=== PATIENT | male | born 1940 | race Caucasian/White ===

== ENCOUNTER 2018-09-21 09:48 | Outpatient (CLI) | payer MEDICARE, BC ==
--- NOTE | 2018-09-21 14:54 | MRI ---
MRI BRAIN WITHOUT CONTRAST: Date: 09/21/18 Multiplanar, multisequential imaging of brain obtained. INDICATION: Memory loss. FINDINGS: There is ventriculomegaly, which appears disproportionate to the degree of atrophy seen. There are mi ld chronic ischemic white matter changes. There is no evidence of restricted diffusion. No mass or edema seen. IMPRESSION: 1. Ventriculomegaly which appears disproportionate to the degree of atrophy. Consider NPH. 2. Mild chronic ischemic white matter change. POS: CHEN
== END 2018-09-21 09:49 | disposition home or self-care (01) ==
LOC: SCSMRI 09:48
PROVIDERS: ATTEND Family Medicine
DX: R41.3 Other amnesia (principal); G93.89 Other specified disorders of brain; G31.9 Degenerative disease of nervous system, unspecified
CPT/HCPCS: 70551

== ENCOUNTER 2019-07-15 09:41 | Inpatient (IN) | payer MEDICARE, BC ==
[2019-07-15 10:04] LABS: INR-International Normal Ratio 1.1; PTT 29.1 SEC (22.9-36.1); Prothrombin Time 13.7 SEC (12.0-14.7)
[2019-07-15 10:07] LABS: Hemoglobin 16.8 g/dL (14.0-18.0); Mean Corpuscular HGB CONC 34.2 g/dL (32.0-36.0); Mean Corpuscular Hemoglobin 33.3 pg (27.0-31.0); Mean Corpuscular Volume 97.5 fL (78.0-98.0); Mean Platelet Volume 7.5 fL (7.4-10.4); Platelet Count 221 thou/uL (130-400); RBC Distribution Width 12.7 % (11.5-14.5); Red Blood Cell (RBC) Count 5.03 mill/uL (4.70-6.10); White Blood Cell (WBC) Count 27.9 thou/uL (4.8-10.8)
--- NOTE | 2019-07-15 10:08 | CT ---
CT Brain WO Con: 07/15/2019 9:53 AM CLINICAL HISTORY: Stroke. COMPARISON: None. FINDINGS: Hemorrhage: None. Ventricular system: Enlarged. Cerebral parenchyma: Microvascular ischemic disease. Mild parenchymal volume loss. Midline shift: None. Mass: No mass effect. Calvarium: Normal. Visualized Paranasal sinuses: Scattered mild inflammatory mucosal thickening. IMPRESSION: No acute intracranial hemorrhage or mass effect. Telephone call of findings placed at 1003 hours.
[2019-07-15 10:11] LABS: ALT (SGPT) 55 U/L (8-55); AST (SGOT) 207 U/L (5-34); Albumin 4.5 g/dL (3.4-4.8); Alkaline Phosphatase 102 U/L (40-110); Anion Gap 13 mmol/L (10-20); BUN (Urea Nitrogen) 23 mg/dL (8.4-25.7); Bilirubin, Total 0.9 mg/dL (0.2-1.2); Calc. Creatinine Clearance 0 mL/min (70-130); Calcium 9.6 mg/dL (7.8-10.44); Carbon Dioxide 27 mmol/L (23-31); Chloride 106 mmol/L (98-107); Estimated GFR-MDRD 53; Glucose 127 mg/dL (83-110); Potassium 4.1 mmol/L (3.5-5.1); Protein, Total 7.5 g/dL (5.8-8.1); Sodium 142 mmol/L (136-145)
--- NOTE | 2019-07-15 10:13 | CT ---
CT Cervical Spine WO Con Indication: Pain/Injury COMPARISON: None FINDINGS: Acute fracture/subluxation: None Spinal alignment: No acute malalignment. Vertebral body heights: Relatively well preserved. Cervical spine degenerative change: Moderate multilevel degenerative change of the cervical spine. Incidental note of paranasal sinus mucosal thickening. IMPRESSION: No acute osseous abnormality.
[2019-07-15 10:20] LABS: CKMB 167.2 ng/mL (0-6.6)
[2019-07-15 10:22] LABS: Band 1 % (5-11); Lymphocytes 4 % (21-51); MDiff Complete? YES; Monocytes 4 % (0-10); Neutrophil 86 % (42-75); Platelet Morphology Comment Appears Decreased; Reactive Lymphocytes 5 % (0-10)
--- NOTE | 2019-07-15 10:30 | CT ---
CT Thoracic Spine WO Con History: Trauma Comparison: None. Findings: The visualized posterior ribs are intact. No acute fracture of the thoracic spine. Multilev el degenerative disc space disease. There is a degenerative 3 mm T1 over T2 anterolisthesis due to facet arthropathy. Posterior elements are intact. Spinous processes are without fracture. Atelectatic changes both lung bases. Calcified granuloma right lower lobe. Moderate atherosclerotic plaque of the aorta. Mild pancreatic atrophy. Calcified granulous of the spleen. Posterior disc osteophyte complex at T9/T10 narrows the spinal canal. Impression: No acute fracture of the thoracic spine.
--- NOTE | 2019-07-15 10:48 | RAD ---
XR Chest 1 View Portable History: Altered mental status Comparison: Altered mental status Findings: Lungs are mildly hypoinflated. No pneumothorax. No effusion. Some scarring lung bases. No a cute osseous normality. Impression: No acute intrathoracic abnormality.
--- NOTE | 2019-07-15 10:49 | CT ---
CTA OF THE HEAD WITH AND WITHOUT IV CONTRAST AND 3D REFORMATTED IMAGING CTA OF THE NECK WITH IV CONTRAST AND 3D REFORMATTED IMAGING: DATE: 07/15/2019 9:53 AM. HISTORY: Stroke. COMPARISON: None. FINDINGS: RIGHT: CCA:No significant stenosis. ICA:Scattered atherosclerotic vascular calcification, without high-grade stenosis. MCA:Subtle diminished contrast volume involving the anterior right sylvian branch is present, difficu lt to reliably characterize due to the small nature and peripheral location of the vessel. CONNOR:No significant stenosis. BILLET ASSEMBLER:No significant stenosis. LEFT: CCA:Scattered vascular calcification without significant stenosis. ICA:Scattered vascular desiccation, without significant stenosis. MCA:No significant stenosis. CONNOR:No significant stenosis. BILLET ASSEMBLER:No significant stenosis. Vertebrobasilar System: Left Vertebral:Desiccation at the origin, without significant stenosis otherwise demonstrated. Left v ertebral artery is dominant. Right Vertebral:Calcification at the origin, without significant stenosis of the nondominant right ve rtebral artery Basilar:No significant stenosis. Perfusion imaging reveals no significant completed infarct or penumbra. IMPRESSION: Mild diminished contrast within an anterior right sylvian branch, although no central large vessel oc clusion. Telephone call of findings placed at the time of dictation, 1045 hours. CODE CR Transcribed Date/Time: 07/15/2019 11:04 AM
[2019-07-15 11:06] LABS: CK (CPK) 15120 U/L (30-200)
[2019-07-15] MEDS ORDERED: Aspirin Chewable 81 MG TAB ONE (11:13)
[2019-07-15 11:56] LABS: Bilirubin Negative (Negative); Clarity Clear (Clear); Glucose, Urine (Dipstick) Normal (Negative); Leukocyte Negative Leu/uL (Negative); Nitrite Negative (Negative); Protein, Urine (Dipstick) 70 mg/dL (Neg-Trace); Squamous Epithelial 0-3 HPF (0-3); Urobilinogen Normal mg/dL (Less than 2)
[2019-07-15] MEDS ORDERED: ISOVUE-370 76%-LOCM 1 ML ONE (12:00)
[2019-07-15 12:10] LABS: Blood, Urine 3+ (Negative)
[2019-07-15 12:11] LABS: Bacteria/HPF 1+ HPF (None Seen); RBC/HPF 0-3 HPF (0-3)
[2019-07-15 12:12] LABS: Epithelial Cast 0-3 LPF (None Seen)
[2019-07-15 13:05] LABS: Troponin I 0.184 ng/mL (< 0.028)
[2019-07-15] MEDS ORDERED: Bisacodyl 10 MG SUPP PR PRN (13:11)
[2019-07-15] MEDS ORDERED: Senokot S 8.6-50 MG TAB PO PRN (13:11)
[2019-07-15] MEDS ORDERED: Ondansetron PF 4 MG/2 ML Vial IVP PRN (13:11)
[2019-07-15] MEDS ORDERED: Guaifenesin DM 100-10/5 ML UDCUP PO PRN (13:11)
[2019-07-15] MEDS ORDERED: Dextrose 5% in Water 1,000 ML IV SCH (13:30)
[2019-07-15] MEDS ORDERED: Sodium Chloride 0.9% 1,000 ML IV SCH (14:00)
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
[2019-07-15 14:49] VITALS: BMI 23.5
[2019-07-15] MEDS: Sodium Chloride 0.9% 1,000 ML IV SCH ×3 (15:56→22:18)
[2019-07-15 16:00] LABS: Troponin I 0.243 ng/mL (< 0.028)
[2019-07-15] MEDS: cefTRIAXone\\ROCEPHIN 1 GM in Sodium Chloride 0.9% 100 ML IVPB SCH (16:20)
--- NOTE | 2019-07-15 18:20 | CON ---
DATE OF CONSULTATION: 07/15/2019 SERVICE: Nephrology. REQUESTING PHYSICIAN: Dr. Christine Eugene. REASON FOR CONSULTATION: Markedly elevated CK and ANTOINE. HISTORY OF PRESENT ILLNESS: A 78-year-old male with known history of dementia, hypertension, BPH, and others, who was admitted to the hospital after he was found down and confused. Time of fall is unknown, but it seems the patient has been down for several hours. There was some concern about acute CVA as the patient initially was thought to have mild facial droop with left-sided drift. The patient also was found to have mild elevation in creatinine relative to baseline as well as markedly elevated CPK. Further evaluation with CT scan of the brain was unremarkable, other than mild parenchymal volume loss and microvascular ischemic disease. The patient also was evaluated with CT angio head and neck with contrast, which was negative for hemodynamically significant stenosis, though he was found to have mild diminished contrast within an anterior right sylvian branch, though no central large vessel occlusion was noted. He is therefore admitted for further evaluation and treatment. The patient initially on presentation was aphasic with nonsensical speech. Speech content, however, has been evolving and changing with time. During my evaluation, the patient is oriented to person, but still has some inappropriate answers, which nursing staff reported that is worse from earlier on since arrival to the stroke unit. The patient was found to have a rash on the anterior aspect of the abdomen, which was concerning for possible shingles, but there was no history of cough, shortness of breath, fever, or dysuria. When found this morning, however, there was some emesis . Note that, the above history was obtained from review of medical record and talking with the patient's son at the bedside. The patient was unable to provide any significant history. PAST MEDICAL HISTORY: 1. Coronary artery disease. 2. Prior history of TIA. 3. Dyslipidemia. 4. BPH. 5. Dementia. 6. Hypertension. 7. Gastroesophageal reflux disease. 8. Depression. PAST SURGICAL HISTORY: Esophageal surgery. FAMILY HISTORY: This could not be obtained due to the patient's condition. SOCIAL HISTORY: The patient lives with spouse. There is no history of alcohol or drug abuse. Also, no history of smoking. ALLERGIES: PENICILLIN. CURRENT HOME MEDICATIONS: 1. Acetaminophen 650 mg p.o. b.i.d. 2. Amlodipine 10 mg p.o. daily. 3. Aricept 5 mg p.o. daily. 4. Enalapril 20 mg p.o. daily. 5. Fluorometholone one drop to each eye 3 times daily. 6. Gatifloxacin eye drop one drop to left eye t.i.d. 7. Lamotrigine 25 mg p.o. daily. 8. Ofloxacin eye drop one drop to left eye q.i.d. 9. Omeprazole 40 mg p.o. daily. 10. Pravastatin 20 mg p.o. daily at bedtime. 11. Zoloft 50 mg p.o. daily. REVIEW OF SYSTEMS: Could not be performed due to the patient's condition. PHYSICAL EXAMINATION: VITAL SIGNS: Temperature 98.5, pulse 81, respiratory rate 18, SpO2 of 92% on room air, blood pressure is 161/93. GENERAL: Confused, elderly male, in no obvious distress. Afebrile. Anicteric. Acyanotic. HEENT: Normocephalic and atraumatic. Two small wounds with scab on the left ventral aspect of forehead noted. No erythema or facial droop appreciated. Face is symmetrical. Oral mucosa is dry. NECK: Supple. Nontender with good range of motion. No JVD or lymphadenopathy or masses appreciated. CARDIOVASCULAR: Regular rhythm and rate with normal heart sounds one and two. RESPIRATORY: Fair air entry bilaterally with few transmitted breath sounds. No obvious crackle or rhonchi or use of accessory muscles was appreciated. GI: Full, soft with moderate lower abdominal tenderness. Bowel sound is hypoactive. EXTREMITIES: Grossly normal looking with no obvious bruise, edema, or erythema. SKIN: Few scattered erythematous papules and a small wound with scab on the anterior aspect of upper abdomen bilaterally noted. No obvious vesicular lesion was appreciated. No rash noted on any other part of the body. RANGE OPERATOR: Conscious and awake. Face is symmetrical. Cranial nerves 2 through 12 are grossly intact . The patient is oriented to person alone. He is disoriented and confused. Providing inappropriate answers most of the time, query confabulation. No obvious involuntary movement appreciated. The patient moves all extremities with symmetric power. No upper or lower limb drift appreciated. PSYCHIATRIC: The patient is anxious with some agitation. DIAGNOSTIC DATA: CBC showed WBC count of 27, hemoglobin of 16.8, MCV of 97.5, platelet of 221. Neutrophil percent is 86. Coagulation panel showed PT 13.7, INR 1.1, PTT 29.1. CMP showed sodium 142, potassium 4.1, chloride 106, CO2 of 27, BUN 23, creatinine 1.31, glucose 127, calcium 9.6, total bilirubin 0.9, AST 207, ALT 55, alkaline phosphatase 102, total protein 7.5, albumin 4.5, globulin 3.0. Cardiac markers showed CK 15,120, CK-MB 167.2. Initial troponin of 0.168, last troponin however is 0.243. Urinalysis showed yellow clear urine with pH of 6.0, specific gravity of 1.045, urine protein of 70 mg/dL, negative ketones, nitrites, bilirubin, and leukocyte esterase. Microscopy showed 0 to 3 rbc and 4 to 6 wbc with 3+ is blood on dipstick. IMAGING STUDIES: Chest x-ray showed mildly hypoinflated lungs with no pneumothorax, effusion, or acute intrathoracic abnormality. CT scan of the brain without contrast showed no acute hemorrhage or mass effect. CT angio head and neck with and without contrast showed mild diminished contrast within an anterior right sylvian branch, although no central large vessel occlusion was noted. Atherosclerosis of bilateral head and neck vessels were noted; however, there was no hemodynamically significant stenosis noted. CT scan of the cervical spine showed moderate multilevel degenerative changes of the cervical spine, but no acute osseous abnormality. CT scan of the thoracic spine showed multilevel degenerative disk space disease as well as moderate atherosclerotic plaque of the aorta with no acute fracture of the thoracic spine. ASSESSMENT: 1. Acute renal failure: This is due to pigment nephropathy related to rhabdomyolysis. The patient was found down and nobody know how long he has been down. CPK is 15,000. Baseline creatinine is about 1 and currently is 1.3. The patient also received contrast study, increasing risk of contrast-induced nephropathy. 2. Rhabdomyolysis. 3. Acute mental status change: Due to acute metabolic encephalopathy superimposed on baseline dementia. 4. Acute metabolic encephalopathy: Etiology is unclear. CVA remains a concern. Occult abdominal pathology also is a concern given leukemoid reaction. The patient also had abdominal tenderness. 5. Acute metabolic encephalopathy. 6. Leukocytosis. 7. Abdominal tenderness of unclear etiology. 8. Baseline dementia. 9. Hypertension. 10. Volume depletion. 11. Abnormal liver function test: Most likely due to rhabdomyolysis. 12. Elevated troponin: Most likely due to demand ischemia from lying down in one place. PLAN: 1. Aggressive IV fluid therapy with normal saline at 250 mL/h will be commenced. 2. We will monitor renal function and CPK given rhabdomyolysis and contrast study to rule out contrast-induced nephropathy. 3. We will also get CT scan of the abdomen with oral contrast given abdominal tenderness. 4. Further evaluation and treatment as per primary attending. Many thanks for involving us in the care of this patient. We will follow along with you. Job ID: [id number]
[2019-07-15] MEDS ORDERED: Donepezil HCl 5 MG TAB PO SCH (21:00)
--- NOTE | 2019-07-15 21:27 | CT ---
CT Abdomen Pelvis WO Con HISTORY: Generalized abdominal pain. Leukocytosis. COMPARISON: 09/19/2009 study. FINDINGS: The lung bases show chronic appearing lung changes with interstitial lung changes in both b ases. Some of these changes could possibly be chronic in an subacute in nature. The liver, spleen and pancreas regions are unremarkable. Contrast in the gallbladder from the previou s CT exam. Right and left adrenal glands and right and left kidneys are normal in size. Contrast is also seen wi thin the kidneys and bladder. There is some mild dilatation of both kidneys and ureters probably on the basis of a mildly distended bladder. There is what appear to be postop changes of the prostate. T here is no significant periaortic or mesenteric adenopathy. No obstruction. Sigmoid diverticulosis is noted. IMPRESSION: 1. Colonic diverticulosis most pronounced in the sigmoid and descending colon region. 2. Interstitial fibrotic lung change. 3. No acute findings of abdomen or pelvis.
[2019-07-15] MEDS ORDERED: Lorazepam 2 MG/ML VIAL SLOW IVP SCH (22:15)
[2019-07-16] MEDS: Sodium Chloride 0.9% 1,000 ML IV SCH (04:33)
[2019-07-16 06:34] LABS: #Lymphocytes 1.8 thou/uL (1.20-3.40); #Monocytes 1.3 thou/uL (0.11-0.59); #Neutrophils 20.9 thou/uL (1.40-6.50); %Basophils 0.2 % (0.0-1.0); %Eosinophils 0.1 % (0.0-10.0); %Lymphocytes 7.4 % (21.0-51.0); %Monocytes 5.2 % (0.0-10.0); %Neutrophils 87.1 % (42.0-75.0); Hemoglobin 15.8 g/dL (14.0-18.0); Mean Corpuscular HGB CONC 32.8 g/dL (32.0-36.0); Mean Corpuscular Hemoglobin 32.3 pg (27.0-31.0); Mean Corpuscular Volume 98.3 fL (78.0-98.0); Mean Platelet Volume 7.8 fL (7.4-10.4); Platelet Count 210 thou/uL (130-400); Red Blood Cell (RBC) Count 4.91 mill/uL (4.70-6.10)
[2019-07-16 06:51] LABS: Anion Gap 17 mmol/L (10-20); BUN (Urea Nitrogen) 17 mg/dL (8.4-25.7); Calc. Creatinine Clearance 56 mL/min (70-130); Carbon Dioxide 25 mmol/L (23-31); Chloride 108 mmol/L (98-107); Estimated GFR-MDRD 55; Potassium 3.6 mmol/L (3.5-5.1); Sodium 146 mmol/L (136-145)
[2019-07-16 06:52] LABS: Calcium 9.1 mg/dL (7.8-10.44); Cholesterol 182 mg/dl (< 200 Desired); Glucose 106 mg/dL (83-110); HDL Cholesterol 60 mg/dL (>60 Neg Risk); LDL Cholesterol, Calculated 105 mg/dL; Triglycerides 86 mg/dL (Less than 150)
[2019-07-16 07:00] LABS: Syphilis Antibody Nonreactive (Nonreactive); Syphilis Antibody Index 0.07 S/CO (<1.00 Non-Reactive)
[2019-07-16 07:17] LABS: CK (CPK) 18707 U/L (30-200)
[2019-07-16] MEDS: lamoTRIgine 25 MG TAB PO SCH (08:25)
[2019-07-16] MEDS: Tamsulosin HCl 0.4 MG CAP PO SCH (08:25)
[2019-07-16] MEDS: Aspirin 81 mg Enteric Coated Tablet PO SCH (08:26)
[2019-07-16] MEDS: Famotidine 20 MG TAB PO SCH (08:26)
[2019-07-16] MEDS ORDERED: Enoxaparin Sodium 30 MG/0.3 ML SYRINGE SC SCH (09:00)
[2019-07-16] MEDS ORDERED: FLU VACC TS2019-20(65YR UP)/PF 180 MCG/0.5 ML SYRINGE IM ONE (09:00)
[2019-07-16] MEDS: Lorazepam 2 MG/ML VIAL SLOW IVP PRN ×2 (10:28→18:31)
[2019-07-16] MEDS ORDERED: Amlodipine 5 MG TAB PO SCH (10:45)
--- NOTE | 2019-07-16 11:16 | CON ---
DATE OF TELEMEDICINE CONSULTATION: 07/16/2019 CHIEF COMPLAINT: Altered mental status. HISTORY OF PRESENT ILLNESS: History was mainly obtained from his and son. The patient's stated she was getting ready on Wednesday morning. She heard him mumbling in the bedroom and she could not make out what she was hearing, but she was not very concerned, because he sometimes talks to his dogs and she thought he was talking to the dog and she went in to tell him she was leaving and she found him on the floor with face down and she smell like vomit. She tried to turn him over and she could not. She was not sure how long he was that way. She called 911. Within 7 to 10 minutes, they were there and they brought him here. He has been jabbering on and off and in between he does maintain a conversation today compared to yesterday. He has a very short attention span. The patient's states that he does have history of some memory problems and they do not have formal diagnosis of dementia. PREVIOUS MEDICAL HISTORY: Positive for coronary artery disease may be a silent heart attack, prior history of TIA which he is not so sure whether it was exhaustion after procedure or if it was in fact a TIA, dyslipidemia, benign prostatic hypertrophy, possible dementia, hypertension, gastroesophageal reflux disease, and depression. PAST SURGICAL HISTORY: He had esophageal surgery for stricture 20 years ago. He also had vasectomy reversal and hemorrhoidectomy several years ago. FAMILY HISTORY: The patient's parents lived to be in their 80s. Father from an [place]. Mother also had heart problems. There was some emotional problems of the parents per . The patient's sister in late 40s from lung cancer and another sister at 77, she was mentally retarded. ALLERGIES: HE IS ALLERGIC TO PENICILLIN. REVIEW OF SYSTEMS: Difficult to rely on based on his current mental status. MEDICATIONS: At home, he takes; 1. Tylenol twice daily. 2. Amlodipine. 3. Aricept 5 mg per day. 4. Enalapril. 5. Fluorometholone. 6. Gatifloxacin. 7. Lamotrigine. 8. Ofloxacin. 9. Omeprazole. 10. Pravastatin. 11. Zoloft. LABORATORY DATA: White count 24, hemoglobin 15.8, hematocrit 48.3, and platelet count 210. Coagulations within normal limits. Cholesterol panel is within normal limits. Liver function is normal. Troponin I 0.168, 0.184, 0.243. CPK 15,120 and now 18,707. Sodium 146, potassium 3.6, chloride 108, BUN 17, creatinine 1.27, yesterday creatinine was 1.31, glucose 106. Syphilis is negative, urinalysis is abnormal, and I did not see any lab reports for the prolactin level and I will order the same. PHYSICAL EXAMINATION: GENERAL APPEARANCE: Well-built, well-nourished gentleman, who is sleepy more than confused. VITAL SIGNS: Pulse 101, temperature 97.6, O2 sats 92%, and blood pressure 153/ 83. CHEST: Clear vesicular breathing. CARDIOVASCULAR: S1 and S2 heard. No murmurs. ABDOMEN: Soft. No organomegaly noted. NEUROLOGICAL: Higher intellectual functions. He wakes up, but intermittently tends to fall asleep. He is oriented to time, place, and person. He thinks it is June and the year is 2018. He did not know the date and is oriented to person and place. Cranial nerves; pupils 2 mm, reactive. Normal extraocular movements. No facial asymmetry noted. Tongue midline. No atrophy noted. Normal elevation of palate. Motor bulk normal, tone normal. Strength 5/5 in upper and lower extremities in iliopsoas, hamstrings, quadriceps, ankle dorsiflexion, plantar flexion, deltoid, biceps, triceps, wrist extension and flexion, finger extension and flexion. Cerebellar, normal [id number]. He is unable to perform [id number] due to the complexity of the task. Sensory appears normal. IMPRESSION: The patient is a 78-year-old man, who was found down by his and he was covered in vomit. In the hospital, he was incontinent and he remained confused. He is improving today. His CPKs went up to 18,000. He also has abnormal white count. He is pending MRI at this time. His CT angiogram does not show any major arterial stenosis other than mild diminished contrast within an anterior right sylvian branch, large vessel occlusion, and his serum prolactin level is not available. I will request the same. Based on the high levels of CPKs and rhabdomyolysis, I suspect this could be more than just a fall. He might have had a seizure with generalized tonic-clonic convulsions or just tonic seizure which can sometimes cause elevated CPKs and rhabdomyolysis and to me his current examination does show some delirium, but he was able to follow commands and answer questions appropriately. At this time, differential diagnosis is encephalopathy secondary to metabolic dysfunction versus primary OIL LEASE [employer]ER event such as seizure with postictal state and rhabdomyolysis contributing to the altered mental status. TREATMENT RECOMMENDATIONS: Please complete the MRI of the brain. I will follow up on the scan. I will also request a prolactin level to see if he had elevated prolactin with the event. I will see him again tomorrow. Job ID: [id number] [id number]
[2019-07-16] MEDS: Lactated Ringer's 1,000 ML IV SCH ×3 (11:44→18:55)
[2019-07-16] MEDS ORDERED: Melatonin 3 MG TAB PO PRN (13:38)
--- NOTE | 2019-07-16 14:11 | PRG ---
DATE OF SERVICE: 07/16/2019 SUBJECTIVE: The patient seen at bedside, admitted, found on the floor with acute kidney injury, high CPK level, and altered mental status. The patient still confused as per family. Oriented in person only. Speaks incoherent. Does not follow command, recognizes family members; however, spontaneously moving all his limbs. MRI could not be done due to the patient noncooperative. As per family, the patient has lacking of sleep since being admitted. OBJECTIVE: VITAL SIGNS: Blood pressure 147/84, temperature 98.7, pulse 96, respirations 20, oxygen saturation 96%. GENERAL: The patient with abrasion on the forehead. Conjunctivae are normal. Oral mucosa dry. NECK: Supple. No JVD. No lymphadenopathy. CHEST: Normal vesicular breathing. No rhonchi. No wheezing. HEART: Sound normal. No murmur. No gallop. No rub. ABDOMEN: Soft, benign. No tenderness or visceromegaly. EXTREMITIES: Negative edema of feet. The patient is spontaneously moving all his extremities. LABORATORY DATA: CBC unremarkable except white blood cells 24.0, hemoglobin 15.8, platelet 210. BMP unremarkable except creatinine 1.27. CPK 18,707. Troponin 0.243, 0.184. LDL 105. Prolactin 11.10. IMPRESSION: 1. Acute encephalopathy, looks multifactorial. The patient with baseline dementia, was found on the floor and found to be having more worsening mental status with high CPK levels. MRI could not be done due to the patient's lacking cooperativeness. We will wait for Neurology recommendation. May need MRI with anesthesia. Continue supportive care. Continue aspirin. The patient has normal prolactin level; however, possibility of as the patient found on the floor. No secondary cause of sepsis, possible dehydration. Continue to monitor clinically. Mental status mildly improving with family concerned about the patient's insomnia. We will add melatonin 3 mg at bedtime p.r.n. for sleep. 2. Acute kidney injury, most likely related to dehydration. Continue IV fluids as per Dr. Easley. Follow up BMP in the morning. Currently improving. 3. Acute rhabdomyolysis. Continue aggressive fluid resuscitation as per Dr. Easley and follow up CPK level in the morning. 4. Borderline increased troponin, possible demand supply mismatch. Continue telemonitoring. Continue to monitor clinically. 5. Hypertension. Continue monitoring blood pressure. Continue blood pressure medication. Continue hydralazine as needed for hypertensive urgency. 6. Leukocytosis, most likely reactive. 7. DNR/DNI. 8. History of dementia. Continue supportive care. 9. Deep venous thrombosis and gastrointestinal prophylaxis. PLAN: Discussed with the son, , and nursing staff in detail. Job ID: [id number]
--- NOTE | 2019-07-16 14:41 | PRG ---
DATE OF SERVICE: 07/16/2019 SERVICE: Nephrology. SUBJECTIVE: A 78-year-old male with known history of dementia admitted after he was found face down in his house confused. Nephrology is following patient for acute renal failure and rhabdomyolysis. The patient is still confused with delusion. Oral intake remained poor. There is no history of fever, nausea, vomiting, or frequent loose stool. OBJECTIVE: VITAL SIGNS: Temperature 97.6, pulse 101, respiratory rate 22, SpO2 92 on room air, blood pressure 153/83. GENERAL: Elderly male, in no obvious distress. Afebrile. Anicteric. Acyanotic. The patient is confused and jittery. HEENT: Normocephalic, atraumatic. Oral mucosa is dry. CARDIOVASCULAR: Regular rhythm and rate with normal heart sounds one and two. RESPIRATORY: Fair air entry bilaterally with few transmitted breath sounds. No obvious rhonchi or use of accessory muscles appreciated. GI: Flat, soft, nontender, nondistended with normal bowel sounds. EXTREMITIES: Grossly normal looking, atraumatic with no obvious bruise, edema, or erythema. SPOOLER RUBBER STRAND: Conscious and alert. Face is symmetrical. Cranial nerves 2 through 12 are grossly intact. The patient is verbalizing some nonsense speech. He is jittery and anxious. DIAGNOSTIC DATA: CBC today showed WBC count of 24, hemoglobin of 15.8, platelet of 210. CMP today showed sodium 146, potassium 3.6, chloride 108, CO2 25, BUN 17, creatinine 1.27, glucose 106, calcium 9.1. CK is 18,707, up from 15,120 on admission. ASSESSMENT: 1. Acute kidney injury, on chronic kidney disease stage 3: Most likely due to hemodynamic factors related to volume depletion. Creatinine is trending downwards towards baseline. 2. Rhabdomyolysis: The patient was found down and he may have been there for several hours. [place] is [place] today [place] [address] to [address]. Of note, IV fluid was cut back overnight. 3. Acute mental status change: Due to acute metabolic encephalopathy and old cerebrovascular accident superimposed on baseline dementia. 4. Volume depletion. 5. Dementia. 6. Hypernatremia: Mild due to free water deficit. PLAN: 1. We will increase IV fluid to 300 mL/h. 2. We will substitute normal saline with lactated Ringer's. 3. We will also start the patient on low-dose diuretic to avoid fluid overload. 4. [place] free water intake advised. 5. Other treatment as per primary attending and Neurology. We will follow along with you. We will repeat CPK and renal function in the morning. Job ID: [id number]
[2019-07-16] MEDS: cefTRIAXone\\ROCEPHIN 1 GM in Sodium Chloride 0.9% 100 ML IVPB SCH (15:35)
[2019-07-16] MEDS ORDERED: Furosemide 20 MG TAB PO SCH (16:00)
[2019-07-16] MEDS: Fluorometholone 0.1% Ophth Soln 5 ml Bottle L EYE SCH ×2 (16:02→21:14)
[2019-07-16] MEDS ORDERED: Ziprasidone 20 MG VIAL IM SCH (18:45)
[2019-07-16] MEDS ORDERED: Sterile Water 10 ML VIAL FS SCH (18:45)
[2019-07-16] MEDS: Ofloxacin 0.3% Ophth Soln L EYE SCH (21:13)
[2019-07-16] MEDS: GATIFLOXACIN 0.5% L EYE SCH (21:13)
[2019-07-17] MEDS: Lactated Ringer's 1,000 ML IV SCH ×6 (01:09→20:30)
[2019-07-17] MEDS ORDERED: Ziprasidone 20 MG VIAL IM SCH (02:15)
[2019-07-17] MEDS ORDERED: Sterile Water 10 ML VIAL FS SCH (02:15)
[2019-07-17] MEDS ORDERED: Amlodipine 10 MG TAB PO SCH (09:00)
[2019-07-17] MEDS ORDERED: Amlodipine 5 MG TAB PO SCH ×2 (09:00→15:15)
[2019-07-17] MEDS ORDERED: lamoTRIgine 25 MG TAB PO SCH (09:00)
[2019-07-17] MEDS: Aspirin 81 mg Enteric Coated Tablet PO SCH (09:31)
[2019-07-17] MEDS: Famotidine 20 MG TAB PO SCH (09:33)
[2019-07-17] MEDS: Lisinopril 20 MG TAB PO SCH (09:34)
[2019-07-17] MEDS: Tamsulosin HCl 0.4 MG CAP PO SCH (09:34)
[2019-07-17] MEDS: lamoTRIgine 25 MG TAB PO SCH (09:34)
[2019-07-17] MEDS: Fluorometholone 0.1% Ophth Soln 5 ml Bottle L EYE SCH ×3 (09:35→20:29)
[2019-07-17] MEDS: Furosemide 20 MG TAB PO SCH (09:35)
[2019-07-17] MEDS: GATIFLOXACIN 0.5% L EYE SCH ×3 (09:35→20:29)
[2019-07-17] MEDS: Ofloxacin 0.3% Ophth Soln L EYE SCH ×4 (09:35→20:29)
[2019-07-17 10:37] LABS: Phosphorus 2.9 mg/dL (2.3-4.7)
[2019-07-17 10:53] LABS: Band 1 % (5-11); Eosinophils 1 % (0-10); Hemoglobin 15.5 g/dL (14.0-18.0); Lymphocytes 3 % (21-51); MDiff Complete? YES; Mean Corpuscular HGB CONC 31.8 g/dL (32.0-36.0); Mean Corpuscular Hemoglobin 31.7 pg (27.0-31.0); Mean Corpuscular Volume 99.6 fL (78.0-98.0); Mean Platelet Volume 7.9 fL (7.4-10.4); Monocytes 9 % (0-10); Neutrophil 86 % (42-75); Platelet Count 207 thou/uL (130-400); RBC Distribution Width 12.8 % (11.5-14.5); RBC Morphology Normal; Red Blood Cell (RBC) Count 4.89 mill/uL (4.70-6.10); White Blood Cell (WBC) Count 22.3 thou/uL (4.8-10.8)
[2019-07-17 12:39] LABS: Albumin 3.9 g/dL (3.4-4.8); Anion Gap 19 mmol/L (10-20); BUN (Urea Nitrogen) 21 mg/dL (8.4-25.7); Calc. Creatinine Clearance 60 mL/min (70-130); Calcium 9.1 mg/dL (7.8-10.44); Carbon Dioxide 21 mmol/L (23-31); Chloride 104 mmol/L (98-107); Estimated GFR-MDRD 60; Glucose 96 mg/dL (83-110); Potassium 3.6 mmol/L (3.5-5.1); Sodium 139 mmol/L (136-145)
--- NOTE | 2019-07-17 15:28 | PRG ---
DATE OF SERVICE: 07/17/2019 SERVICE: Nephrology. SUBJECTIVE: A 78-year-old male with known history of dementia admitted after he was found down at home. The patient also reportedly had emesis and forehead bruises. Nephrology is following the patient for ANTOINE and rhabdomyolysis. The patient is still confused and agitated with restlessness. He is currently restrained. OBJECTIVE: VITAL SIGNS: Temperature 97.8, pulse 108, respiratory rate 20, SpO2 of 93% on room air, blood pressure is 173/91. GENERAL: Elderly male, anxious and restless. The patient is still confused. HEENT: Forehead mild bruise with dry blood. Oral mucosa is dry. CARDIOVASCULAR: Regular rhythm and rate, but tachycardic. RESPIRATORY: Good air entry bilaterally with no obvious crackle or rhonchi or use of accessory muscles. GI: Full, soft, nontender, nondistended with normal bowel sounds. EXTREMITIES: Grossly normal looking atraumatic with no edema or erythema. Four-point restraint is in place. HUMAN RESOURCES HR GENERALIST: Conscious and alert. Confused, anxious, and agitated. Four-point restraint is in place. The patient moves all extremities. DIAGNOSTIC DATA: Renal function panel today showed sodium 139, potassium 3.6, chloride 104, CO2 of 21, BUN 21, creatinine 1.18, glucose 96, calcium 9.1, phosphorus 3.0, albumin 3.9. CK is 9062, down from 18,707 yesterday. CBC showed WBC count of 22.3, hemoglobin of 15.5, MCV of 99.6, platelet of 207. Echocardiogram showed depressed systolic function with EF of 20% to 25% as well as mild mitral regurgitation. ASSESSMENT: 1. Acute kidney injury: Due to hemodynamic factors related to volume depletion. Creatinine is trending down towards baseline with IV fluids. 2. Rhabdomyolysis: Either due to lying down in one place or seizure disorder. The patient with dementia is at increased risk of seizure. CK level is trending down with IV fluids. 3. Cardiomyopathy with EF of 20% to 25%. We will monitor closely to avoid fluid overload. 4. Acute mental status change: Due to CVA or metabolic encephalopathy superimposed on basal dementia. PLAN: 1. Continue IV fluid at current rate. Hopefully, tomorrow we will wean off IV fluid therapy. 2. We will increase the amlodipine to 10 mg to get better BP control. The patient also was started on Coreg 12.5 b.i.d. We can increase that to 25 b.i.d. if tachycardia persist. 3. We will give a dose of potassium chloride continuation of diuretic therapy with Lasix. Other treatment as per primary attending and neurologist. Job ID: [id number]
[2019-07-17] MEDS: cefTRIAXone\\ROCEPHIN 1 GM in Sodium Chloride 0.9% 100 ML IVPB SCH (15:39)
--- NOTE | 2019-07-17 17:42 | CON ---
DATE OF CONSULTATION: REASON FOR CONSULTATION: Recent fall, cardiomyopathy, nonsustained VT. HISTORY OF PRESENT ILLNESS: Mr. Bedolla is an unfortunate 78-year-old gentleman, who has not been seen and evaluated by Cardiology in the past. He recently fell and was found down. He does have underlying dementia. According to his family, he had pleasant dementia. He has also had acute metabolic encephalopathy and questionable stroke in addition to rhabdomyolysis. From a CV standpoint, the family states he has not complained of chest pain, pressure, shortness of breath, or other associated symptoms. He was found down on the floor for an unknown duration. PAST MEDICAL HISTORY: Previous DC, TIA, hyperlipidemia, BPH, dementia, vasectomy, hypertension, acid reflux, and depression. MEDICATIONS: Include: 1. Omeprazole. 2. Enalapril. 3. Norvasc. 4. Sertraline. 5. Pravastatin. 6. Aricept. ALLERGIES: PENICILLIN. SOCIAL HISTORY: No current tobacco or alcohol use. REVIEW OF SYSTEMS: Unobtainable. PHYSICAL EXAMINATION: GENERAL: Metabolic encephalopathy present. The patient awakens to voice, but not following commands. VITAL SIGNS: Blood pressure 136/85, pulse 116, respirations 20, and temperature 99.6. NEUROLOGIC: The patient is alert and oriented x3 with no focal neurologic deficits. HEENT: Sclerae without icterus. Mouth has moist mucous membranes with normal pallor. NECK: No JVD. Carotid upstroke brisk. No bruits bilaterally. LUNGS: Clear to auscultation with unlabored respirations. BACK: No scoliosis or kyphosis. CARDIAC: Regular rate and rhythm with normal S1 and S2. No S3 or S4 noted. No significant rubs, murmurs, thrills, or gallops noted throughout the precordium. PMI is not displaced. There is no parasternal heave. ABDOMEN: Soft, nontender, nondistended. No peritoneal signs present. No hepatosplenomegaly. No abnormal striae. EXTREMITIES: 2+ femoral and 2+ dorsalis pedis pulses. No cyanosis, clubbing, or edema. SKIN: No gross abnormalities. PERTINENT LABORATORY DATA: Hemoglobin 15.5, hematocrit 48.7, and creatinine 1.18. Telemetry monitoring shows nonsustained VT. IMPRESSION: 1. Cardiomyopathy with LVEF 20% to 25%. 2. Nonsustained ventricular tachycardia. 3. Recent fall. 4. Dementia. 5. Metabolic encephalopathy. RECOMMENDATIONS: There is conceivable that Mr. Bedolla's initial insult was VT causing a possible syncopal episode. Etiology to his metabolic encephalopathy is currently unknown. His workup is ensued by the primary team. From a CV standpoint, he does have a cardiomyopathy with recent nonsustained VT. I discussed several options with family including medical therapy versus a stress study versus proceeding with a more aggressive approach including coronary angiography. I have discussed risks and benefits of both. It was decided based on his underlying dementia to proceed with a more conservative approach. We will add Coreg to his current regime. His initial CK was 18,000 with troponin 0.2 and likely related to rhabdomyolysis. I also discussed LifeVest with family. I do not feel he will be compliant and would agree. Otherwise from my standpoint, I have no further recommendations. Job ID: [id number]
[2019-07-17] MEDS: Carvedilol 6.25 MG TAB PO SCH (20:20)
--- NOTE | 2019-07-17 20:54 | PRG ---
DATE OF TELEMEDICINE SERVICE: 07/17/2019 CHIEF COMPLAINT: Altered mental status. INTERVAL HISTORY: The patient still remains confused. Son was by his bedside. He was just sedated for his MRI. We are hoping he can complete his MRI. He is still encephalopathic. As of now, he has ventricular tachycardia causing syncopal episode and cause of metabolic encephalopathy is unknown at this time. He does have a cardiomyopathy with a low EF and he has been seen by Cardiology as he needs to complete his MRI scan, so we can understand there is any other abnormalities and the patient is a little more cooperative. Please consider obtaining CSF studies. I am hoping as the rhabdomyolysis is clear, he will do better. I will request Dr. Singleton to follow up with this patient. Job ID: [id number] MTDD
[2019-07-18] MEDS: Acetaminophen 325 MG TAB PO PRN ×2 (02:32→20:45)
[2019-07-18] MEDS: Lorazepam 2 MG/ML VIAL SLOW IVP PRN (02:32)
[2019-07-18 06:13] LABS: #Eosinphils 0.1 thou/uL (0.0-0.7); #Lymphocytes 1.2 thou/uL (1.20-3.40); #Monocytes 0.8 thou/uL (0.11-0.59); #Neutrophils 15.5 thou/uL (1.40-6.50); %Basophils 0.2 % (0.0-1.0); %Eosinophils 0.5 % (0.0-10.0); %Lymphocytes 6.8 % (21.0-51.0); %Monocytes 4.5 % (0.0-10.0); Hemoglobin 13.9 g/dL (14.0-18.0); Mean Corpuscular HGB CONC 32.6 g/dL (32.0-36.0); Mean Corpuscular Hemoglobin 32.2 pg (27.0-31.0); Mean Corpuscular Volume 98.8 fL (78.0-98.0); Mean Platelet Volume 7.8 fL (7.4-10.4); Platelet Count 184 thou/uL (130-400); RBC Distribution Width 12.6 % (11.5-14.5); Red Blood Cell (RBC) Count 4.32 mill/uL (4.70-6.10); White Blood Cell (WBC) Count 17.6 thou/uL (4.8-10.8)
[2019-07-18 06:42] LABS: Albumin 3.4 g/dL (3.4-4.8); Anion Gap 17 mmol/L (10-20); BUN (Urea Nitrogen) 26 mg/dL (8.4-25.7); BUN/Creatinine Ratio 23.64; CK (CPK) 3434 U/L (30-200); Calc. Creatinine Clearance 64 mL/min (70-130); Calcium 8.5 mg/dL (7.8-10.44); Carbon Dioxide 22 mmol/L (23-31); Chloride 109 mmol/L (98-107); Estimated GFR-MDRD 65; Glucose 116 mg/dL (83-110); Phosphorus 3.3 mg/dL (2.3-4.7); Potassium 3.5 mmol/L (3.5-5.1); Sodium 144 mmol/L (136-145)
[2019-07-18] MEDS: Fluorometholone 0.1% Ophth Soln 5 ml Bottle L EYE SCH ×3 (08:38→20:45)
[2019-07-18] MEDS: Carvedilol 6.25 MG TAB PO SCH (08:41)
--- NOTE | 2019-07-18 08:41 | RAD ---
PORTABLE CHEST: HISTORY: The patient is coughing up bright red blood. FINDINGS: Heart size appears enlarged. Since the prior 07/15/2019 study there has been development of pulmonary vascular engorgement with increased perihilar lung markings, slightly asymmetric involving the right lung but still appears to represent pulmonary edema type change. IMPRESSION: Cardiomegaly with predominantly perihilar alveolar infiltrates, most suggestive of pulmonary edema ch get. POS: DEBORAH
[2019-07-18] MEDS: Aspirin 81 mg Enteric Coated Tablet PO SCH (08:42)
[2019-07-18] MEDS: lamoTRIgine 25 MG TAB PO SCH (08:43)
[2019-07-18] MEDS: Furosemide 20 MG TAB PO SCH (08:43)
[2019-07-18] MEDS: Famotidine 20 MG TAB PO SCH (08:43)
[2019-07-18] MEDS: Lisinopril 20 MG TAB PO SCH (08:43)
[2019-07-18] MEDS: Tamsulosin HCl 0.4 MG CAP PO SCH (08:44)
[2019-07-18] MEDS: GATIFLOXACIN 0.5% L EYE SCH ×3 (08:47→20:46)
[2019-07-18] MEDS: Ofloxacin 0.3% Ophth Soln L EYE SCH ×4 (08:47→20:45)
[2019-07-18] MEDS ORDERED: Amlodipine 5 MG TAB PO SCH (09:00)
[2019-07-18] MEDS ORDERED: Carvedilol 6.25 MG TAB PO SCH (10:00)
[2019-07-18] MEDS: Lactated Ringer's 1,000 ML IV SCH (10:24)
--- NOTE | 2019-07-18 10:28 | PDOC.HOSPP ---
- Subjective Encounter Date: 07/17/19 Encounter Time: 09:45 Subjective: pt up in bed wants his restraints off he answers all questions well. - Objective Vital Signs & Weight: Vital Signs (12 hours) Temp Pulse Resp BP BP BP Pulse Ox 07/18/19 09:58 160/90 H 07/18/19 08:43 160/90 H 07/18/19 08:42 105 H 160/92 H 07/18/19 08:41 160/92 H 07/18/19 08:00 98.1 F 108 H 28 H 160/92 H 93 L 07/18/19 07:30 94 L 07/18/19 04:50 96 07/18/19 04:04 91 L 07/18/19 03:18 98.4 F 114 H 24 H 180/92 H 85 L 07/18/19 00:00 99.9 F H 104 H 22 H 165/83 H 94 L Weight Admit Weight 178 lb Weight 178 lb I&O: 07/17/19 07/18/19 07/19/19 06:59 06:59 06:59 Intake Total 3813 900 Balance 3813 900 Result Diagrams: 07/18/19 05:49 07/18/19 05:49 Hospitalist ROS - Review of Systems Cardiovascular: denies: chest pain, palpitations, orthopnea, paroxysmal noc. dyspnea, edema, light headedness, other Gastrointestinal: denies: nausea, vomiting, abdominal pain, diarrhea, constipation, melena, hematochezia, other - Medication Medications: Active Medications Generic Name Dose Route Start Last Admin Trade Name Freq PRN Reason Stop Dose Admin Acetaminophen 650 mg 07/15/19 13:11 07/18/19 02:32 Tylenol PO 650 mg Q4H PRN Administration Headache/Fever/Mild Pain (1-3) Albuterol/Ipratropium 3 ml 07/15/19 19:00 07/18/19 07:41 Duoneb NEB Not Given [id number] AZIZA Amlodipine Besylate 10 mg 07/18/19 09:00 07/18/19 08:42 Norvasc PO 10 mg DAILY AZIZA Administration Aspirin 81 mg 07/16/19 09:00 07/18/19 08:42 Ecotrin PO 81 mg DAILY AZIZA Administration Carvedilol 12.5 mg 07/18/19 10:00 07/18/19 09:58 Coreg PO 07/18/19 12:00 12.5 mg NOW AZIZA Administration Famotidine 20 mg 07/16/19 09:00 07/18/19 08:43 Pepcid PO 20 mg DAILY AZIZA Administration Fluorometholone 1 drop 07/16/19 15:00 07/18/19 08:38 Flarex 0.1% Ophth Soln L EYE 1 drop TID AZIZA Administration Furosemide 20 mg 07/17/19 09:00 07/18/19 08:43 Lasix PO 20 mg DAILY AZIZA Administration Lamotrigine 25 mg 07/16/19 09:00 07/18/19 08:43 Lamictal PO 25 mg DAILY AZIZA Administration Lisinopril 20 mg 07/17/19 09:00 07/18/19 08:43 Zestril PO 20 mg DAILY AZIZA Administration Lorazepam 1 mg 07/15/19 22:10 07/18/19 02:32 Ativan SLOW IVP 1 mg Q6H PRN Administration Anxiety Pantoprazole Sodium 40 mg 07/17/19 09:00 07/18/19 08:43 Protonix PO 40 mg DAILY AZIZA Administration Gatifloxacin 0.5% 0 each 07/16/19 15:00 07/18/19 08:47 Ophth Soln L EYE 1 each TID AZIZA Administration Ofloxacin 0.3% Ophth 0 each 07/16/19 17:00 07/18/19 08:47 Soln L EYE 1 each QID AZIZA Administration Sertraline HCl 50 mg 07/16/19 09:00 07/18/19 08:46 Zoloft PO 50 mg DAILY AZIZA Administration Tamsulosin HCl 0.4 mg 07/16/19 09:00 07/18/19 08:44 Flomax PO 0.4 mg DAILY AZIZA Administration - Exam Neck: negative: supple, symmetric, no JVD, no thyromegaly, no lymphadenopathy, no carotid bruit, JVD Heart: negative: RRR, no murmur, no gallops, no rubs, normal peripheral pulses, irregular, diminshed peripheral pulses, murmur present, II/IV, III/IV Respiratory: rales Gastrointestinal: negative: soft, non-tender, non-distended, normal bowel sounds , no palpable masses, no hepatomegaly, no splenomegaly, no bruit, no guarding, no rigidity, tender to palpation, distended, diminished bowl sounds, voluntary guarding Hosp A/P (1) Acute metabolic encephalopathy Code(s): G93.41 - METABOLIC ENCEPHALOPATHY Status: Acute (2) Hemoptysis Code(s): R04.2 - HEMOPTYSIS Status: Acute (3) Aspiration pneumonia Code(s): J69.0 - PNEUMONITIS DUE TO INHALATION OF FOOD AND VOMIT Status: Acute (4) Stroke Code(s): I63.9 - CEREBRAL INFARCTION, UNSPECIFIED Status: Acute (5) Systolic heart failure Code(s): I50.20 - UNSPECIFIED SYSTOLIC (CONGESTIVE) HEART FAILURE Status: Acute (6) Rhabdomyolysis Code(s): M62.82 - RHABDOMYOLYSIS Status: Acute - Plan when i evaluated him he was oriented x2 and did follow commands, however he did get confused a few hours later per nursing. I came back to evaluate him when his son was at bedside and he was oriented x2 and followed commands. He was suppose to undergo a MRI with sedation but i spoke with anesthesia and decided against it given his low ef and anesthetic would drop his bp. Besides it would not guide changer. He is on ceftriaxone and his wbc is coming down. his urine, cxr and blood cx are negative. I do not think this is meningitis or encephalitis since his mentation does improve at times which would not happen if he had encephalitis and he did not have a fever or complain of neck pain. will consult cardio given his new dx of HF and nonsustaining vtach. Nephrology is consulted for his rhabdo. He does appear very dehydrated. I have talked with his and son. I have updated them. states that his baseline mentation is not very good to begin with. His prolactin was normal will await neurology's input.
[2019-07-18] MEDS ORDERED: Lactated Ringer's 1,000 ML IV SCH (10:30)
[2019-07-18] MEDS ORDERED: Furosemide 40 MG/4 ML VIAL SLOW IVP SCH (10:30)
--- NOTE | 2019-07-18 10:40 | PDOC.HOSPP ---
- Subjective Encounter Date: 07/18/19 Encounter Time: 09:45 Subjective: pt up in bed more awake, updated. - Objective Vital Signs & Weight: Vital Signs (12 hours) Temp Pulse Resp BP BP BP Pulse Ox 07/18/19 09:58 160/90 H 07/18/19 08:43 160/90 H 07/18/19 08:42 105 H 160/92 H 07/18/19 08:41 160/92 H 07/18/19 08:00 98.1 F 108 H 28 H 160/92 H 93 L 07/18/19 07:30 94 L 07/18/19 04:50 96 07/18/19 04:04 91 L 07/18/19 03:18 98.4 F 114 H 24 H 180/92 H 85 L 07/18/19 00:00 99.9 F H 104 H 22 H 165/83 H 94 L Weight Admit Weight 178 lb Weight 178 lb I&O: 07/17/19 07/18/19 07/19/19 06:59 06:59 06:59 Intake Total 3813 900 Balance 3813 900 Result Diagrams: 07/18/19 05:49 07/18/19 05:49 Hospitalist ROS - Review of Systems Cardiovascular: denies: chest pain, palpitations, orthopnea, paroxysmal noc. dyspnea, edema, light headedness, other Gastrointestinal: denies: nausea, vomiting, abdominal pain, diarrhea, constipation, melena, hematochezia, other Genitourinary: denies: dysuria, frequency, incontinence, hematuria, retention, other - Medication Medications: Active Medications Generic Name Dose Route Start Last Admin Trade Name Leeroy PRN Reason Stop Dose Admin Acetaminophen 650 mg 07/15/19 13:11 07/18/19 02:32 Tylenol PO 650 mg Q4H PRN Administration Headache/Fever/Mild Pain (1-3) Albuterol/Ipratropium 3 ml 07/15/19 19:00 07/18/19 07:41 Duoneb NEB Not Given [id number] AZIZA Amlodipine Besylate 10 mg 07/18/19 09:00 07/18/19 08:42 Norvasc PO 10 mg DAILY AZIZA Administration Aspirin 81 mg 07/16/19 09:00 07/18/19 08:42 Ecotrin PO 81 mg DAILY AZIZA Administration Carvedilol 12.5 mg 07/18/19 10:00 07/18/19 09:58 Coreg PO 07/18/19 12:00 12.5 mg NOW AZIZA Administration Famotidine 20 mg 07/16/19 09:00 07/18/19 08:43 Pepcid PO 20 mg DAILY AZIZA Administration Fluorometholone 1 drop 07/16/19 15:00 07/18/19 08:38 Flarex 0.1% Ophth Soln L EYE 1 drop TID AZIZA Administration Furosemide 20 mg 07/17/19 09:00 07/18/19 08:43 Lasix PO 20 mg DAILY AZIZA Administration Lamotrigine 25 mg 07/16/19 09:00 07/18/19 08:43 Lamictal PO 25 mg DAILY AZIZA Administration Lisinopril 20 mg 07/17/19 09:00 07/18/19 08:43 Zestril PO 20 mg DAILY AZIZA Administration Lorazepam 1 mg 07/15/19 22:10 07/18/19 02:32 Ativan SLOW IVP 1 mg Q6H PRN Administration Anxiety Pantoprazole Sodium 40 mg 07/17/19 09:00 07/18/19 08:43 Protonix PO 40 mg DAILY AZIZA Administration Gatifloxacin 0.5% 0 each 07/16/19 15:00 07/18/19 08:47 Ophth Soln L EYE 1 each TID AZIZA Administration Ofloxacin 0.3% Ophth 0 each 07/16/19 17:00 07/18/19 08:47 Soln L EYE 1 each QID AZIZA Administration Sertraline HCl 50 mg 07/16/19 09:00 07/18/19 08:46 Zoloft PO 50 mg DAILY AZIZA Administration Tamsulosin HCl 0.4 mg 07/16/19 09:00 07/18/19 08:44 Flomax PO 0.4 mg DAILY AZIZA Administration - Exam Neck: negative: supple, symmetric, no JVD, no thyromegaly, no lymphadenopathy, no carotid bruit, JVD Heart: negative: RRR, no murmur, no gallops, no rubs, normal peripheral pulses, irregular, diminshed peripheral pulses, murmur present, II/IV, III/IV Respiratory: negative: CTAB, no wheezes, no rales, no ronchi, normal chest expansion, no tachypnea, normal percussion, rales, rhonchi, tachypneic, wheezes Hosp A/P (1) Acute metabolic encephalopathy Code(s): G93.41 - METABOLIC ENCEPHALOPATHY Status: Acute (2) Hemoptysis Code(s): R04.2 - HEMOPTYSIS Status: Acute (3) Aspiration pneumonia Code(s): J69.0 - PNEUMONITIS DUE TO INHALATION OF FOOD AND VOMIT Status: Acute (4) Stroke Code(s): I63.9 - CEREBRAL INFARCTION, UNSPECIFIED Status: Acute (5) Systolic heart failure Code(s): I50.20 - UNSPECIFIED SYSTOLIC (CONGESTIVE) HEART FAILURE Status: Acute (6) Rhabdomyolysis Code(s): M62.82 - RHABDOMYOLYSIS Status: Acute - Plan when i evaluated him he was oriented x2 and did follow commands, however he did get confused a few hours later per nursing. I came back to evaluate him when his son was at bedside and he was oriented x2 and followed commands. He was suppose to undergo a MRI with sedation but i spoke with anesthesia and decided against it given his low ef and anesthetic would drop his bp. Besides it would not change consultant. He is on ceftriaxone and his wbc is coming down. his urine, cxr and blood cx are negative. I do not think this is meningitis or encephalitis since his mentation does improve at times which would not happen if he had encephalitis and he did not have a fever or complain of neck pain. will consult cardio given his new dx of HF and nonsustaining vtach. Nephrology is consulted for his rhabdo. He does appear very dehydrated. I have talked with his and son. I have updated them. states that his baseline mentation is not very good to begin with. His prolactin was normal will await neurology's input. 07/18 pt's family said He has been hemoptysis will get pulmonary and put him on cefepime and add flagyl. will get eeg to make sure no seizure since his ck was very high and there is a concern that his rhabdomylosis is caused by seizure vs fall. UNABLE TO GIVE PT STATIN DUE TO HIS RECENT RHABDO. He is on asa. once more stable will get MRi brain.
[2019-07-18] MEDS ORDERED: Potassium Chloride 20 MEQ TAB PO SCH (11:30)
[2019-07-18] MEDS: Cefepime 1 GM in Sodium Chloride 0.9% 100 ML IVPB SCH ×2 (11:46→23:55)
--- NOTE | 2019-07-18 12:01 | PRG ---
DATE OF SERVICE: 07/18/2019 SERVICE: Nephrology. SUBJECTIVE: A 78-year-old male with known history of dementia admitted after he was found down and confused. Nephrology is following patient for ANTOINE and rhabdomyolysis. The patient developed worsening cough and some respiratory insufficiency as well as some hemoptysis last night. Mental status continued to worsen when. He, however, seems more calm today. No nausea, vomiting, or diarrhea. Oral intake remained suboptimal. OBJECTIVE: VITAL SIGNS: Temperature 98.1, pulse 108, respiratory rate 28, SpO2 of 93% on room air, and blood pressure is 160/92. GENERAL: Elderly male, in some distress. Afebrile. Anicteric. Acyanotic. HEENT: Normocephalic. Oral mucosa is moist. CARDIOVASCULAR: Regular rhythm and rate, but tachycardic. RESPIRATORY: Fair air entry bilaterally with scattered crackles, but no rhonchi. Some transmitted breath sound also was noted. Work of breathing is mildly increased. GI: Full, soft, nontender, and nondistended with normal bowel sounds. EXTREMITIES: Atraumatic. No edema or erythema. LAP REGULATOR: The patient is sleeping, but easily arousable. He remained very fidgety and anxious. Continues to talk while sleeping. Cranial nerves 2 through 12 are grossly intact. The patient moves all extremities spontaneously. DIAGNOSTIC DATA: CBC showed WBC count of 17.6, hemoglobin of 13.9, platelet of 184, MCV of 98.8. Renal function panel showed sodium 144, potassium 3.5, chloride 109, CO2 of 22, BUN 26, creatinine 1.1, glucose 116, calcium 8.5, phosphorus 3.3, and albumin 3.4. CPK is 3434 down from 9062 yesterday. Chest x-ray showed cardiomegaly with predominantly perihilar alveolar infiltrates with new development of pulmonary vascular engorgement with increased perihilar markings. ASSESSMENT: 1. Acute kidney injury: Due to hemodynamic factors related to volume depletion. Creatinine continues to trend downward towards baseline with IV fluid. Some contribution from rhabdomyolysis cannot be ruled out. 2. Rhabdomyolysis: Either due to laying down on the ground for so longer or seizure episode. CPK is down to 3000 from peak of 18,000. 3. Chronic kidney disease, stage 3: Most likely related to old age and congestive heart failure. The patient also carries diagnosis of hypertension. 4. Cardiomyopathy with EF of 20% to 25%. 5. Acute respiratory distress due to acute pulmonary congestion. 6. Acute systolic heart failure with pulmonary congestion: Most likely due to fluid overload in a patient with low EF of 20% to 25%. 7. Volume depletion. PLAN: 1. Discontinue IV fluid therapy in view of pulmonary congestion. Mcrae oral intake advised. 2. Increase Coreg to 25 b.i.d. given tachycardia and uncontrolled hypertension. 3. We will give additional dose of potassium chloride today. We will escalate diuretic therapy in view of pulmonary congestion. 4. We will monitor renal function and CPK level in the morning. Job ID: [id number]
[2019-07-18] MEDS: metroNIDAZOLE 500 MG in Premix Bag 1 BAG IVPB SCH (15:59)
--- NOTE | 2019-07-18 18:02 | CON ---
DATE OF CONSULTATION: 07/18/2019 HISTORY OF PRESENT ILLNESS: The patient is a 78-year-old gentleman, who was admitted on 07/15/2019 with stroke-like symptoms, being consulted today on 07/18 after he apparently coughed up some blood. He has been seen by several different physicians including Neurology and Nephrology. is at the bedside. They are from [place]. States that she found him somewhat unresponsive, confused at home, lays done on the floor. He is lying in vomitus. He had some abrasions on his elbow, right facial droop. He was given Zofran by the EMS. He was admitted. Vital signs; blood pressure 148/96, pulse 80, saturations are 98% on room air, and respiratory rate 16. Stroke alert was called in. Neurology was consulted. PAST MEDICAL HISTORY: According to his past medical history pertinent for coronary artery disease, though he has not seen a sr. logistics analyst, sees a local primary care physician only. Hyperlipidemia, high cholesterol, hypertension, and previous recent dementia. PAST SURGICAL HISTORY: Previous surgeries, some kind of GI issues. HABITS: No alcohol or tobacco abuse. ALLERGIES: PENICILLIN. HOME MEDICATIONS: Includes; 1. Aricept 5. 2. Lamotrigine 25. 3. Omeprazole 40. 4. Zoloft 50. 5. Vasotec 20. 6. Amlodipine 10. SOCIAL AND FAMILY HISTORY: Unremarkable . REVIEW OF SYSTEMS: Otherwise, 10-point negative. PHYSICAL EXAMINATION: GENERAL: He is awake, alert, and responsive, moves all 4 extremities. VITAL SIGNS: Temperature 98, blood pressure elevated 160/90, pulse 105, saturations room air. CHEST: Bilateral rhonchi and crackles. CARDIAC: Normal S1 and S2. No gallops. ABDOMEN: No masses. LABORATORY DATA: White count 17,000, H and H are 14 and 42. Creatinine is normal. Urine culture negative. X-ray shows bilateral pulmonary infiltrates and his echo shows EF of only 35%. IMPRESSION: 1. Abnormal x-ray consistent with congestive heart failure, possibly aspiration. 2. Encephalopathy. 3. Dementia, hypertension, and reflux. 4. MRI of his head was ordered, none was done, but his CT angio shows no large occlusion. PLAN: I agree with empiric antibiotics, neb treatments, and supportive care. Most of this appears to be cardiac in origin. His once again stated he is a DNR. Consultation note, 70 minutes, 50% direct patient care. Job ID: [id number]
--- NOTE | 2019-07-18 19:13 | CON ---
DATE OF CONSULTATION: 07/18/2019 CONSULTING PHYSICIAN: Hospitalist Service. IMPRESSION: Clearing encephalopathy possibly secondary to an anoxic event due to a cardiac-related arrhythmia. PLAN: Continue supportive measures. HISTORY OF PRESENT ILLNESS: Mr. Bedolla is a 78-year-old male with a known history of coronary artery disease and mild dementia. 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 He generally gets around independently. He quit driving a few months ago due to personal concerns that he was not capable of doing so. He and his sleep in separate bedrooms. She heard some moaning and went in and found him lying on the floor. There was some blood on the carpet. He was face down on the floor. When she spoke with him, she could tell that he was confused and could not really give her any details other than he said he was in some pain. He was subsequently transferred here. He was noted on admission to have a significantly elevated white count and CPK. He had a CT scan of the head and neck done and no significant problems were found. His echocardiogram showed an ejection fraction of 20% to 25%. His EKG had shown some ventricular tachycardia. He was quite agitated and confused since admission. His reports that today he is doing much better. He has been much more lucid and appropriate. He had been a bit violent with the nurses prior to my evaluation. His white count is steadily diminished. His CPK has steadily gone down as well. His vital signs have otherwise been stable. He has been afebrile. His laboratory studies were unremarkable for any chemistry abnormalities. Otherwise, his urine was clear. He is without any complaints of any focal weakness or numbness. He was otherwise lucid, given his personal history. PAST MEDICAL HISTORY: As listed above. ALLERGIES: PENICILLIN. SOCIAL HISTORY: No tobacco or alcohol. FAMILY HISTORY: Unremarkable. MEDICATIONS: Medication list was reviewed. REVIEW OF SYSTEMS: Ten-system review of systems is otherwise negative. PHYSICAL EXAMINATION: VITAL SIGNS: Blood pressure 160/90, pulse 78, respirations 20, temperature 99.4. HEENT: Pupils are equal. Conjunctivae are clear. He has an abrasion across his forehead and the bridge of his nose. Oropharynx is clear. NECK: Supple. EXTREMITIES: No cyanosis, clubbing, or edema. NEUROLOGIC: He was awake and cooperative. Followed commands appropriately. Speech was fluent and clear. He was oriented to person and place. He had little difficulty recalling the name of the city he was living in. His cranial nerves were intact throughout. Motor strength showed good neuroscience director na strength bilaterally. He had no tremor or dysmetria. Sensation was intact to light touch. Gait was not tested. No abnormal movements were seen. SUMMARY: This is an elderly gentleman with some mild dementia, who presented after being found unconscious with rhabdomyolysis. He has cardiomyopathy and evidence of cardiac arrhythmias. I think that his primary event was cardiac in origin. He seems to be clearing neurologically. His EEG did not show any abnormalities. I do not have any specific recommendations. Job ID: [id number]
[2019-07-18] MEDS: Carvedilol 25 MG TAB PO SCH (20:45)
[2019-07-18] MEDS ORDERED: Cefepime 1 GM in Sodium Chloride 0.9% 100 ML IVPB SCH (21:00)
[2019-07-18] MEDS ORDERED: metroNIDAZOLE 500 MG in Premix Bag 1 BAG IVPB SCH (22:00)
[2019-07-19] MEDS: metroNIDAZOLE 500 MG in Premix Bag 1 BAG IVPB SCH ×4 (00:43→23:07)
[2019-07-19] MEDS: Acetaminophen 325 MG TAB PO PRN ×2 (03:12→20:26)
[2019-07-19 04:44] LABS: #Eosinphils 0.4 thou/uL (0.0-0.7); #Monocytes 0.7 thou/uL (0.11-0.59); #Neutrophils 10.5 thou/uL (1.40-6.50); %Basophils 0.1 % (0.0-1.0); %Lymphocytes 8.3 % (21.0-51.0); %Monocytes 5.5 % (0.0-10.0); Hemoglobin 12.6 g/dL (14.0-18.0); Mean Corpuscular HGB CONC 33.1 g/dL (32.0-36.0); Mean Corpuscular Hemoglobin 32.5 pg (27.0-31.0); Mean Corpuscular Volume 98.4 fL (78.0-98.0); Mean Platelet Volume 7.8 fL (7.4-10.4); Platelet Count 173 thou/uL (130-400); RBC Distribution Width 12.6 % (11.5-14.5); Red Blood Cell (RBC) Count 3.88 mill/uL (4.70-6.10); White Blood Cell (WBC) Count 12.6 thou/uL (4.8-10.8)
[2019-07-19 05:09] LABS: Albumin 3.1 g/dL (3.4-4.8); Anion Gap 13 mmol/L (10-20); BUN (Urea Nitrogen) 37 mg/dL (8.4-25.7); BUN/Creatinine Ratio 30.58; CK (CPK) 1290 U/L (30-200); Calc. Creatinine Clearance 58 mL/min (70-130); Calcium 8.3 mg/dL (7.8-10.44); Carbon Dioxide 26 mmol/L (23-31); Chloride 108 mmol/L (98-107); Estimated GFR-MDRD 58; Glucose 116 mg/dL (83-110); Magnesium 1.9 mg/dL (1.6-2.6); Potassium 3.2 mmol/L (3.5-5.1); Sodium 144 mmol/L (136-145)
[2019-07-19 08:12] LABS: Actual Bicarbonate (HCO3a) 27.5 mEq/L (22-28); Base Excess (BEa) 2.9 mEq/L (-2.0 to +3.0); CO2 Tension 42.3 mmHg (35.0-45.0); Calcium, Ionized 1.11 mmol/L (1.12-1.30); Carboxyhemoglobin (COHb) 1.5 gm% (0.0-3.0); Hemoglobin (Hb) 12.9 g/dL (14.0-18.0); O2 Tension (PaO2) 75.5 mmHg (> 70.0); Potassium - ABG Lab 2.95 mmol/L (3.70-5.30); pH, Arterial 7.43 (7.35-7.45)
[2019-07-19 08:13] LABS: ALV-art Gradient 156.825 (0-20); Puncture Site LRA
--- NOTE | 2019-07-19 08:44 | PDOC.CPN ---
- Subjective Date: 07/19/19 Time: 08:42 Interval history: Tele reviewed. Patient with short PSVT yesterday. No VT. LBBB chronic. - Review of Systems General: denies: fever/chills, weight/appetite/sleep changes, night sweats, fatigue Respiratory: denies: cough, congestion, shortness of breath, exercise intolerance Cardiovascular: denies: chest pain, palpitation, edema, paroxysmal nocturnal dyspnea, orthopnea Neurological: denies: numbness, syncope, seizure, weakness - Objective Allergies/Adverse Reactions: Allergies Allergy/AdvReac Type Severity Reaction Status Date / Time Penicillins Allergy Verified 07/15/19 14:34 Visit Medications: Current Medications Acetaminophen (Tylenol) 650 mg PO Q4H PRN PRN Reason: Headache/Fever/Mild Pain (1-3) Last Admin: 07/19/19 03:12 Dose: 650 mg Albuterol/Ipratropium (Duoneb) 3 ml NEB [id number] [facility] Last Admin: 07/19/19 07:47 Dose: 3 ml Amlodipine Besylate (Norvasc) 10 mg PO DAILY [facility] Last Admin: 07/18/19 08:42 Dose: 10 mg Aspirin (Ecotrin) 81 mg PO DAILY [facility] Last Admin: 07/18/19 08:42 Dose: 81 mg Bisacodyl (Dulcolax) 10 mg AK DAILYPRN PRN PRN Reason: Constipation Carvedilol (Coreg) 25 mg PO BID [facility] Last Admin: 07/18/19 20:45 Dose: 25 mg Famotidine (Pepcid) 20 mg PO DAILY [facility] Last Admin: 07/18/19 08:43 Dose: 20 mg Fluorometholone (Flarex 0.1% Oph Soln) 1 drop L EYE TID [facility] Last Admin: 07/18/19 20:45 Dose: 1 drop Guaifenesin/Dextromethorphan (Robitussin Dm) 15 ml PO Q4H PRN PRN Reason: Cough Cefepime HCl 1 gm/ Sodium (Chloride) 100 mls @ 200 mls/hr IVPB 1100,2300 [facility] Last Admin: 07/18/19 23:55 Dose: 100 mls Metronidazole 500 mg/ Device 100 mls @ 100 mls/hr IVPB 0800,1600,2359 [facility] Last Admin: 07/19/19 00:43 Dose: 100 mls Lamotrigine (Lamictal) 25 mg PO DAILY [facility] Last Admin: 07/18/19 08:43 Dose: 25 mg Lisinopril (Zestril) 20 mg PO DAILY [facility] Last Admin: 07/18/19 08:43 Dose: 20 mg Lorazepam (Ativan) 1 mg SLOW IVP Q6H PRN PRN Reason: Anxiety Last Admin: 07/18/19 02:32 Dose: 1 mg Melatonin (Melatonin) 3 mg PO HSPRN PRN PRN Reason: Insomnia Last Admin: 07/18/19 20:44 Dose: 3 mg Ondansetron HCl (Zofran) 4 mg IVP Q6H PRN PRN Reason: Nausea/Vomiting Pantoprazole Sodium (Protonix) 40 mg PO DAILY [facility] Last Admin: 07/18/19 08:43 Dose: 40 mg Gatifloxacin 0.5% (Ophth Soln) 0 each L EYE TID [facility] Last Admin: 07/18/19 20:46 Dose: 1 each Ofloxacin 0.3% Ophth (Soln) 0 each L EYE QID [facility] Last Admin: 07/18/19 20:45 Dose: 1 each Potassium Chloride (K-Dur) 40 meq PO Q6H [facility] Stop: 07/19/19 14:01 Senna/Docusate Sodium (Senokot S) 2 tab PO BID PRN PRN Reason: Constipation Sertraline HCl (Zoloft) 50 mg PO DAILY [facility] Last Admin: 07/18/19 08:46 Dose: 50 mg Sodium Chloride (Flush - Normal Saline) 10 ml IVF PRN PRN PRN Reason: Saline Flush Tamsulosin HCl (Flomax) 0.4 mg PO DAILY [facility] Last Admin: 07/18/19 08:44 Dose: 0.4 mg Vital Signs & Weight: Vital Signs Temp Pulse Resp BP Pulse Ox 07/19/19 08:00 99.3 F 67 24 H 145/75 H 93 L 07/19/19 07:47 80 15 07/19/19 03:30 98.3 F 70 22 H 131/70 07/19/19 03:25 66 24 H 131/70 94 L 07/19/19 02:03 91 L 07/19/19 00:01 76 16 95 07/19/19 00:00 98.3 F 69 22 H 128/72 90 L Admit Weight 178 lb Weight 178 lb - Physical Exam General: alert & oriented x3, appears well HEENT: mucus membranes moist Cardiac: regular rate and rhythm Lungs: clear to auscultation Neuro: grossly intact Abdomen: soft - Labs Result Diagrams: 07/19/19 04:21 07/19/19 04:21 Troponin/CKMB CK-MB (CK-2) 167.2 ng/mL (0-6.6) H* 07/15/19 09:47 Troponin I 0.243 ng/mL (< 0.028) H 07/15/19 15:22 - Assessment/Plan Assessment/Plan: 1. s/p syncopal event 2. cardiomyopathy (EF 25%) - unknown etiology 3. NSVT 4. PSVT 5. LBBB 6. THUAN Syncope probably related to arrhythmia. Awaiting repeat LFTs. If normal, will start Amio. Family wants conservative approach only. Resume lisinopril. Continue Coreg. If BP drops will hold Norvasc.
[2019-07-19] MEDS: Aspirin 81 mg Enteric Coated Tablet PO SCH (09:20)
[2019-07-19] MEDS: Amlodipine 5 MG TAB PO SCH (09:20)
[2019-07-19] MEDS: Famotidine 20 MG TAB PO SCH (09:20)
[2019-07-19] MEDS: Potassium Chloride 20 MEQ TAB PO SCH ×2 (09:20→15:39)
[2019-07-19] MEDS: Carvedilol 25 MG TAB PO SCH ×2 (09:20→20:26)
[2019-07-19] MEDS: Lisinopril 20 MG TAB PO SCH (09:21)
[2019-07-19] MEDS: lamoTRIgine 25 MG TAB PO SCH (09:21)
[2019-07-19] MEDS: Tamsulosin HCl 0.4 MG CAP PO SCH (09:21)
[2019-07-19] MEDS: Fluorometholone 0.1% Ophth Soln 5 ml Bottle L EYE SCH ×3 (09:28→20:26)
[2019-07-19] MEDS: Ofloxacin 0.3% Ophth Soln L EYE SCH ×4 (09:29→20:27)
[2019-07-19] MEDS: GATIFLOXACIN 0.5% L EYE SCH ×3 (09:29→20:27)
[2019-07-19 10:01] LABS: ALT (SGPT) 70 U/L (8-55); AST (SGOT) 120 U/L (5-34); Albumin 3.3 g/dL (3.4-4.8); Alkaline Phosphatase 61 U/L (40-110); Bilirubin, Direct 0.4 mg/dL (0.1-0.3)
--- NOTE | 2019-07-19 10:51 | PRG ---
DATE OF SERVICE: SUBJECTIVE: This morning, he is in no distress. He coughed up some blood last night, minimal quantities. OBJECTIVE: VITAL SIGNS: Temperature 99, blood pressure 145/75, respiratory rate 18, pulse 80. CHEST: Bilateral crackles. No wheezing. CARDIAC: Normal S1, S2. No gallops. ABDOMEN: No masses. LABORATORY DATA: H and H are stable. White count 12,000. Blood gas was ordered. It is unclear why it was done so, but his pO2 is 75, pCO2 of 42% ph 7.43. Creatinine 1.21. IMPRESSION: 1. Congestive heart failure, new onset. I doubt he has pneumonia. 2. Dementia. Encephalopathy, improved. PLAN: Continue cardiac care. I may consider switching him over to oral antibiotics. Job ID: [id number] MTDD
[2019-07-19] MEDS: Cefepime 1 GM in Sodium Chloride 0.9% 100 ML IVPB SCH ×2 (11:08→22:12)
--- NOTE | 2019-07-19 14:01 | RAD ---
Exam: Modified barium swallow with speech therapist HISTORY: Unspecified dysphasia, feeding difficulties Examination performed in the seated lateral position with numerous consistencies. There is considerab le pooling the vallecula. No omaira aspiration. Please see speech therapy report for additional findings and recommendations. Dose 0.612 kahn centimeters squared. 1.9 minutes fluoroscopy time.
--- NOTE | 2019-07-19 16:47 | PDOC.HOSPP ---
- Subjective Encounter Date: 07/19/19 Encounter Time: 10:30 Subjective: pt up in bed more awake and oriented x3 - Objective Vital Signs & Weight: Vital Signs (12 hours) Temp Pulse Pulse Pulse Resp BP BP 07/19/19 15:59 97.6 F 63 24 H 07/19/19 14:51 65 68 127/73 07/19/19 13:41 98.8 F 62 24 H 07/19/19 13:15 72 16 07/19/19 12:59 98.8 F 62 24 H 07/19/19 10:00 81 77 128/75 07/19/19 09:21 145/75 H 07/19/19 09:20 67 145/75 H 07/19/19 08:00 99.3 F 67 24 H 07/19/19 07:47 80 15 BP BP Pulse Ox 07/19/19 15:59 127/73 91 L 07/19/19 14:51 120/68 07/19/19 13:41 113/62 92 L 07/19/19 13:15 07/19/19 12:59 113/62 92 L 07/19/19 10:00 136/76 07/19/19 09:21 07/19/19 09:20 07/19/19 08:00 145/75 H 93 L 07/19/19 07:47 Weight Admit Weight 178 lb Weight 178 lb I&O: 07/18/19 07/19/19 07/20/19 06:59 06:59 06:59 Intake Total 900 500 537 Output Total 1550 Balance 900 500 -1013 Result Diagrams: 07/19/19 04:21 07/19/19 04:21 Hospitalist ROS - Review of Systems Respiratory: denies: cough, dry, shortness of breath, hemoptysis, SOB with excertion, pleuritic pain, sputum, wheezing, other Cardiovascular: denies: chest pain, palpitations, orthopnea, paroxysmal noc. dyspnea, edema, light headedness, other Gastrointestinal: denies: nausea, vomiting, abdominal pain, diarrhea, constipation, melena, hematochezia, other - Medication Medications: Active Medications Generic Name Dose Route Start Last Admin Trade Name Freq PRN Reason Stop Dose Admin Acetaminophen 650 mg 07/15/19 13:11 07/19/19 03:12 Tylenol PO 650 mg Q4H PRN Administration Headache/Fever/Mild Pain (1-3) Albuterol/Ipratropium 3 ml 07/15/19 19:00 07/19/19 13:15 Duoneb NEB 3 ml [id number] AZIZA Administration Amlodipine Besylate 5 mg 07/19/19 09:00 07/19/19 09:20 Norvasc PO 5 mg DAILY AZIZA Administration Aspirin 81 mg 07/16/19 09:00 07/19/19 09:20 Ecotrin PO 81 mg DAILY [facility] Administration Carvedilol 25 mg 07/18/19 21:00 07/19/19 09:20 Coreg PO 25 mg BID AZIZA Administration Famotidine 20 mg 07/16/19 09:00 07/19/19 09:20 Pepcid PO 20 mg DAILY AZIZA Administration Fluorometholone 1 drop 07/16/19 15:00 07/19/19 15:35 Flarex 0.1% Ophth Soln L EYE 1 drop TID AZIZA Administration Cefepime HCl 1 gm/ Sodium 100 mls @ 200 mls/hr 07/18/19 11:00 07/19/19 11:08 Chloride IVPB 100 mls 1100,2300 [facility] Administration Metronidazole 500 mg/ Device 100 mls @ 100 mls/hr 07/18/19 16:00 07/19/19 15: 39 IVPB 100 mls 0800,1600,2359 [facility] Administration Lamotrigine 25 mg 07/16/19 09:00 07/19/19 09:21 Lamictal PO 25 mg DAILY [facility] Administration Lisinopril 20 mg 07/17/19 09:00 07/19/19 09:21 Zestril PO 20 mg DAILY [facility] Administration Lorazepam 1 mg 07/15/19 22:10 07/18/19 02:32 Ativan SLOW IVP 1 mg Q6H PRN Administration Anxiety Melatonin 3 mg 07/16/19 13:38 07/18/19 20:44 Melatonin PO 3 mg HSPRN PRN Administration Insomnia Pantoprazole Sodium 40 mg 07/17/19 09:00 07/19/19 09:21 Protonix PO 40 mg DAILY [facility] Administration Gatifloxacin 0.5% 0 each 07/16/19 15:00 07/19/19 15:35 Ophth Soln L EYE 1 each TID [facility] Administration Ofloxacin 0.3% Ophth 0 each 07/16/19 17:00 07/19/19 13:12 Soln L EYE Not Given QID [facility] Sertraline HCl 50 mg 07/16/19 09:00 07/19/19 09:21 Zoloft PO 50 mg DAILY [facility] Administration Tamsulosin HCl 0.4 mg 07/16/19 09:00 07/19/19 09:21 Flomax PO 0.4 mg DAILY [facility] Administration - Exam Neck: negative: supple, symmetric, no JVD, no thyromegaly, no lymphadenopathy, no carotid bruit, JVD Heart: negative: RRR, no murmur, no gallops, no rubs, normal peripheral pulses, irregular, diminshed peripheral pulses, murmur present, II/IV, III/IV Respiratory: negative: CTAB, no wheezes, no rales, no ronchi, normal chest expansion, no tachypnea, normal percussion, rales, rhonchi, tachypneic, wheezes Hosp A/P (1) Acute metabolic encephalopathy Code(s): G93.41 - METABOLIC ENCEPHALOPATHY Status: Acute (2) Hemoptysis Code(s): R04.2 - HEMOPTYSIS Status: Acute (3) Aspiration pneumonia Code(s): J69.0 - PNEUMONITIS DUE TO INHALATION OF FOOD AND VOMIT Status: Acute (4) Stroke Code(s): I63.9 - CEREBRAL INFARCTION, UNSPECIFIED Status: Acute (5) Systolic heart failure Code(s): I50.20 - UNSPECIFIED SYSTOLIC (CONGESTIVE) HEART FAILURE Status: Acute (6) Rhabdomyolysis Code(s): M62.82 - RHABDOMYOLYSIS Status: Acute - Plan when i evaluated him he was oriented x2 and did follow commands, however he did get confused a few hours later per nursing. I came back to evaluate him when his son was at bedside and he was oriented x2 and followed commands. He was suppose to undergo a MRI with sedation but i spoke with anesthesia and decided against it given his low ef and anesthetic would drop his bp. 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 He is on ceftriaxone and his wbc is coming down. his urine, cxr and blood cx are negative. I do not think this is meningitis or encephalitis since his mentation does improve at times which would not happen if he had encephalitis and he did not have a fever or complain of neck pain. will consult cardio given his new dx of HF and nonsustaining vtach. Nephrology is consulted for his rhabdo. He does appear very dehydrated. I have talked with his and son. I have updated them. states that his baseline mentation is not very good to begin with. His prolactin was normal will await neurology's input. 07/18 pt's family said He has been hemoptysis will get pulmonary and put him on cefepime and add flagyl. will get eeg to make sure no seizure since his ck was very high and there is a concern that his rhabdomylosis is caused by seizure vs fall. UNABLE TO GIVE PT STATIN DUE TO HIS RECENT RHABDO. He is on asa. once more stable will get MRi brain. 07/19 pt is more awake today, will continue current abx. Nursing documents hemoptysis. HH is stable. will need rehab or snf.
--- NOTE | 2019-07-19 17:23 | PRG ---
DATE OF SERVICE: 07/19/2019 SERVICE: Nephrology. SUBJECTIVE: A 78-year-old male admitted due to fall and confusion. Nephrology is seeing the patient for ANTOINE and rhabdomyolysis. The patient is very coherent today and appropriate. He reported that he did not know when he came to the hospital and he obviously deferred that he fell. Denied nausea, vomiting, or diarrhea. Denied fever or shortness of breath. OBJECTIVE: VITAL SIGNS: Temperature 98.3, pulse rate 80, respiratory rate 15, SpO2 of 93% on room air, and blood pressure is 145/75. GENERAL: Comfortable elderly male, in no obvious distress. Afebrile. Anicteric. Acyanotic. HEENT: Normocephalic. Oral mucosa is moist. CARDIOVASCULAR: Regular rhythm and rate with normal heart sounds. RESPIRATORY: Fair air entry bilaterally with scattered crackles or transmitted breath sounds. No rhonchi or increased work of breathing noted. GI: Full, soft, nontender, and nondistended with normal bowel sounds. EXTREMITIES: Grossly normal looking and atraumatic with no edema or erythema. AWS SOLUTION ARCHITECT: Conscious and alert and oriented x3 with appropriate mental status. Cranial nerves II through XII are grossly intact. The patient moves all extremities. DIAGNOSTIC DATA: CBC showed WBC count of 12.6, hemoglobin of 12.6, MCV of 98.4, and platelet of 173. Renal function panel showed sodium of 144, potassium 3.2, chloride 108, CO2 of 26, BUN 37, creatinine 1.2, glucose 116, calcium 8.3, phosphorus 4.0, magnesium 1.9, albumin 3.1. CPK is 1290. Liver function tests showed total bilirubin 1, direct 0.4, AST 120, ALT 70, alkaline phosphatase 61, total protein 6.0, and albumin 3.3. BNP is 2132. ASSESSMENT: 1. Acute kidney injury: Due to volume depletion and rhabdomyolysis. Creatinine improved with IV fluid. Currently, BUN and creatinine are trending up given recent diuretic therapy due to pulmonary congestion. 2. Chronic kidney disease stage 3. 3. Rhabdomyolysis: CPK is down to 1200 from peak of 18,000. 4. Cardiomyopathy with EF of 20% to 25%. 5. Acute systolic heart failure with pulmonary congestion. 6. Volume status: The patient clinically looks dry, though he has pulmonary congestion and crackles, which may be due to aspiration pneumonia as well as congestive heart failure exacerbation. We will discontinue Lasix due to worsening azotemia. 7. We will replete serum potassium with potassium chloride. 8. We will repeat renal function in the morning. 9. Other treatment as per primary attending and chief architect. Job ID: [id number]
[2019-07-20] MEDS: Acetaminophen 325 MG TAB PO PRN (04:21)
[2019-07-20] MEDS: Lorazepam 2 MG/ML VIAL SLOW IVP PRN (04:21)
[2019-07-20 08:11] LABS: Anion Gap 14 mmol/L (10-20); BUN (Urea Nitrogen) 33 mg/dL (8.4-25.7); Calc. Creatinine Clearance 69 mL/min (70-130); Calcium 8.5 mg/dL (7.8-10.44); Carbon Dioxide 27 mmol/L (23-31); Chloride 110 mmol/L (98-107); Estimated GFR-MDRD 70; Glucose 107 mg/dL (83-110); Potassium 3.4 mmol/L (3.5-5.1); Sodium 148 mmol/L (136-145)
[2019-07-20 08:31] LABS: ALT (SGPT) 54 U/L (8-55); AST (SGOT) 76 U/L (5-34); Albumin 3.1 g/dL (3.4-4.8); Alkaline Phosphatase 57 U/L (40-110); Anion Gap 14 mmol/L (10-20); BUN (Urea Nitrogen) 32 mg/dL (8.4-25.7); Bilirubin, Total 0.8 mg/dL (0.2-1.2); Calc. Creatinine Clearance 71 mL/min (70-130); Calcium 8.5 mg/dL (7.8-10.44); Carbon Dioxide 26 mmol/L (23-31); Chloride 110 mmol/L (98-107); Estimated GFR-MDRD 73; Globulin 2.4 g/dL (2.4-3.5); Glucose 102 mg/dL (83-110); Potassium 3.4 mmol/L (3.5-5.1); Protein, Total 5.5 g/dL (5.8-8.1); Sodium 147 mmol/L (136-145)
--- NOTE | 2019-07-20 08:57 | PRG ---
DATE OF SERVICE: 07/20/2019 SUBJECTIVE: Mr. Bedolla is doing better. His metabolic encephalopathy has improved. He is answering questions appropriately. No current complaints. OBJECTIVE: VITAL SIGNS: Blood pressure 151/73, pulse 68, temperature afebrile. LUNGS: Clear to auscultation. HEART: Regular rate and rhythm. ABDOMEN: Soft, nontender, nondistended. EXTREMITIES: No edema. PERTINENT LABORATORY DATA: Hemoglobin 12.6, white blood cell count 12.6. Creatinine 0.99. IMPRESSION: 1. Recent syncope. 2. Likely ischemic cardiomyopathy. 3. Wide-complex tachycardia. RECOMMENDATIONS: Tachycardia, likely represents a ventricular tachycardia, but cannot completely exclude supraventricular tachycardia. This is more likely consistent with ventricular tachycardia given his recent even and cardiomyopathy. The patient has opted for continued medical therapy and no intervention. I would recommend amiodarone therapy once his AST and ALT normalized. They continued to downtrend. This may take several days. Can certainly start this as an outpatient. We would recommend 400 mg p.o. q.a.m. x1 month, then decrease to 200 mg one p.o. q.a.m. Otherwise, from a Cardiovascular standpoint, I have no further recommendations. I can follow up with the patient in the office in the next 2 to 3 weeks. From a heart failure standpoint, we will continue Coreg, amlodipine, in addition to aspirin and lisinopril. Job ID: [id number]
[2019-07-20] MEDS ORDERED: Pantoprazole 40 MG VIAL IVP SCH (09:00)
--- NOTE | 2019-07-20 10:04 | PRG ---
DATE OF SERVICE: 07/20/2019 SERVICE: Nephrology. SUBJECTIVE: A 78-year-old male admitted after he was found on the floor confused. Nephrology is following patient for acute renal failure and rhabdomyolysis. Mental status has improved. The patient is very conversational and appropriate. Desires to go home. Denied nausea, vomiting, shortness of breath. OBJECTIVE: VITAL SIGNS: Temperature 98.5, pulse 68, respiratory rate 24, SpO2 of 98% on room air, blood pressure is 151/73. GENERAL: Elderly male, in no obvious distress. Comfortable. Atraumatic. Afebrile and anicteric. HEENT: Normocephalic. Oral mucosa is mildly dry. CARDIOVASCULAR: Regular rhythm and rate with normal heart sounds 1 and 2. RESPIRATORY: Good air entry transmitted breath sounds. No obvious rhonchi or crackles appreciated. There is no use of accessory muscles. GI: Full, soft, nontender, nondistended with normal bowel sounds. EXTREMITIES: Grossly normal looking atraumatic with no edema or erythema. DISPATCHER MAINTENANCE SERVICE: Conscious, alert, oriented x3 with appropriate mental status. Cranial nerves 2 through 12 are grossly intact. The patient moves all extremities. DIAGNOSTIC DATA: CMP showed sodium 147, potassium 3.4, chloride 110, CO2 of 26, BUN 32, creatinine 0.99, glucose 102, calcium 8.5, total bilirubin 0.8, AST 76, ALT 54, alkaline phosphatase 57, total protein 5.5, albumin 3.1. CK is 609. Magnesium is 2.0. ASSESSMENT: 1. Acute kidney injury: Due to volume depletion and rhabdomyolysis, resolved. 2. Rhabdomyolysis: Due to volume depletion and laying down for unknown period. Seizure disorder cannot be ruled out. 3. Hypernatremia: Due to free water deficit. 4. Volume depletion: Improved. 5. Cardiomyopathy with ejection fraction of 20% to 25%. Cardiology following. 6. Hypokalemia. PLAN: Replete serum potassium with 80 mEq of potassium chloride. [place] free water intake advised. The patient is clinically improved. With resolution of ANTOINE and markedly improved CK levels, Nephrology will sign off at this time. The patient can be discharged from Nephrology point of view. Job ID: [id number]
[2019-07-20] MEDS: Amlodipine 5 MG TAB PO SCH (10:16)
[2019-07-20] MEDS: Aspirin 81 mg Enteric Coated Tablet PO SCH (10:16)
[2019-07-20] MEDS: Carvedilol 25 MG TAB PO SCH ×2 (10:17→21:40)
[2019-07-20] MEDS: lamoTRIgine 25 MG TAB PO SCH (10:18)
[2019-07-20] MEDS: Famotidine 20 MG TAB PO SCH (10:18)
[2019-07-20] MEDS: Tamsulosin HCl 0.4 MG CAP PO SCH (10:19)
[2019-07-20] MEDS: Lisinopril 20 MG TAB PO SCH (10:20)
[2019-07-20] MEDS: Fluorometholone 0.1% Ophth Soln 5 ml Bottle L EYE SCH ×3 (10:21→21:41)
[2019-07-20] MEDS: GATIFLOXACIN 0.5% L EYE SCH ×3 (10:22→21:41)
[2019-07-20] MEDS: Ofloxacin 0.3% Ophth Soln L EYE SCH ×4 (10:23→21:41)
[2019-07-20] MEDS: metroNIDAZOLE 500 MG in Premix Bag 1 BAG IVPB SCH (10:24)
[2019-07-20] MEDS: Potassium Chloride 20 MEQ TAB PO SCH ×2 (10:28→14:33)
--- NOTE | 2019-07-20 10:28 | PDOC.HOSPP ---
- Subjective Encounter Date: 07/20/19 Encounter Time: 10:00 Subjective: Patient seen and examined. No new complaints. No overnight events, pt is more alert and doing well with PT - Objective Vital Signs & Weight: Vital Signs (12 hours) Temp Pulse Resp BP Pulse Ox 07/20/19 08:00 98.5 F 68 24 H 151/73 H 98 07/20/19 07:40 51 L 20 93 L 07/20/19 03:54 98.9 F 66 18 138/74 89 L 07/20/19 00:24 58 L 18 95 07/20/19 00:00 99 F 58 L 18 120/59 L 93 L Weight Admit Weight 178 lb Weight 178 lb I&O: 07/19/19 07/20/19 07/21/19 06:59 06:59 06:59 Intake Total 500 1057 522 Output Total 1800 Balance 500 -215 522 Result Diagrams: 07/19/19 04:21 07/20/19 05:37 Radiology Reviewed by me: Yes EKG Reviewed by me: Yes Hospitalist ROS - Review of Systems Constitutional: denies: fever, chills, sweats, weakness, malaise, other Eyes: denies: pain, vision change, conjunctivae inflammation, eyelid inflammation, redness, other ENT: denies: ear pain, ear discharge, nose pain, nose discharge, nose congestion , mouth pain, mouth swelling, throat pain, throat swelling, other Respiratory: denies: cough, dry, shortness of breath, hemoptysis, SOB with excertion, pleuritic pain, sputum, wheezing, other Cardiovascular: denies: chest pain, palpitations, orthopnea, paroxysmal noc. dyspnea, edema, light headedness, other Gastrointestinal: denies: nausea, vomiting, abdominal pain, diarrhea, constipation, melena, hematochezia, other Genitourinary: denies: dysuria, frequency, incontinence, hematuria, retention, other Musculoskeletal: denies: neck pain, shoulder pain, arm pain, back pain, hand pain, leg pain, foot pain, other Skin: denies: rash, lesions, tabitha, bruising, other - Medication Medications: Active Medications Generic Name Dose Route Start Last Admin Trade Name Freq PRN Reason Stop Dose Admin Acetaminophen 650 mg 07/15/19 13:11 07/20/19 04:21 Tylenol PO 650 mg Q4H PRN Administration Headache/Fever/Mild Pain (1-3) Albuterol/Ipratropium 3 ml 07/15/19 19:00 07/20/19 07:40 Duoneb NEB 3 ml [id number] AZIZA Administration Amlodipine Besylate 5 mg 07/19/19 09:00 07/19/19 09:20 Norvasc PO 5 mg DAILY AZIZA Administration Aspirin 81 mg 07/16/19 09:00 07/19/19 09:20 Ecotrin PO 81 mg DAILY AZIZA Administration Carvedilol 25 mg 07/18/19 21:00 07/19/19 20:26 Coreg PO 25 mg BID AZIZA Administration Famotidine 20 mg 07/16/19 09:00 07/19/19 09:20 Pepcid PO 20 mg DAILY AZIZA Administration Fluorometholone 1 drop 07/16/19 15:00 07/19/19 20:26 Flarex 0.1% Ophth Soln L EYE 1 drop TID AZIZA Administration Lamotrigine 25 mg 07/16/19 09:00 07/19/19 09:21 Lamictal PO 25 mg DAILY AZIZA Administration Lisinopril 20 mg 07/17/19 09:00 07/19/19 09:21 Zestril PO 20 mg DAILY AZIZA Administration Lorazepam 1 mg 07/15/19 22:10 07/20/19 04:21 Ativan SLOW IVP 1 mg Q6H PRN Administration Anxiety Melatonin 3 mg 07/16/19 13:38 07/18/19 20:44 Melatonin PO 3 mg HSPRN PRN Administration Insomnia Pantoprazole Sodium 40 mg 07/17/19 09:00 07/19/19 09:21 Protonix PO 40 mg DAILY AZIZA Administration Gatifloxacin 0.5% 0 each 07/16/19 15:00 07/19/19 20:27 Ophth Soln L EYE 1 each TID AZIZA Administration Ofloxacin 0.3% Ophth 0 each 07/16/19 17:00 07/19/19 20:27 Soln L EYE 1 each QID AZIZA Administration Sertraline HCl 50 mg 07/16/19 09:00 07/19/19 09:21 Zoloft PO 50 mg DAILY AZIZA Administration Tamsulosin HCl 0.4 mg 07/16/19 09:00 07/19/19 09:21 Flomax PO 0.4 mg DAILY AZIZA Administration - Exam General Appearance: NAD, awake alert Eye: PERRL, anicteric sclera ENT: normocephalic atraumatic, no oropharyngeal lesions Neck: supple, symmetric, no JVD, no thyromegaly Heart: RRR, no murmur, no gallops, no rubs Respiratory: CTAB, no wheezes, no rales, no ronchi Gastrointestinal: soft, non-tender, non-distended, normal bowel sounds Extremities: no cyanosis, no clubbing, no edema Skin: normal turgor, no lesions Neurological: no focal deficits Musculoskeletal: normal tone, normal strength Psychiatric: normal affect, normal behavior Hosp A/P (1) Acute metabolic encephalopathy Code(s): G93.41 - METABOLIC ENCEPHALOPATHY Status: Resolved (2) Aspiration pneumonia Code(s): J69.0 - PNEUMONITIS DUE TO INHALATION OF FOOD AND VOMIT Status: Suspected Qualifiers: Laterality: unspecified laterality Lung location: unspecified part of lung (3) Rhabdomyolysis Code(s): M62.82 - RHABDOMYOLYSIS Status: Acute Qualifiers: Rhabdomyolysis type: non-traumatic Qualified Code(s): M62.82 - Rhabdomyolysis (4) New onset of congestive heart failure Code(s): I50.9 - HEART FAILURE, UNSPECIFIED Status: Acute (5) Abnormal blood electrolyte level Code(s): E87.8 - OTH DISORDERS OF ELECTROLYTE AND FLUID BALANCE, NEC Status: Acute (6) Abnormal LFTs Code(s): R94.5 - ABNORMAL RESULTS OF LIVER FUNCTION STUDIES Status: Acute (7) GERD (gastroesophageal reflux disease) Code(s): K21.9 - GASTRO-ESOPHAGEAL REFLUX DISEASE WITHOUT ESOPHAGITIS Status: Chronic Qualifiers: Esophagitis presence: without esophagitis Qualified Code(s): K21.9 - Gastro -esophageal reflux disease without esophagitis (8) BPH (benign prostatic hyperplasia) Code(s): N40.0 - BENIGN PROSTATIC HYPERPLASIA WITHOUT LOWER URINRY TRACT SYMP Status: Chronic Qualifiers: Lower urinary tract symptom presence: symptoms absent Qualified Code(s): N40.0 - Benign prostatic hyperplasia without lower urinary tract symptoms (9) NSVT (nonsustained ventricular tachycardia) Code(s): I47.2 - VENTRICULAR TACHYCARDIA Status: Acute - Plan old records reviewed/req, continue antibiotics, PT/OT, clinical social work therapist pt's mental status has improved to baseline, he needs more free water which I have advised him, replace potassium today, will need rehab/snu placement, continue omnicef for now, continue medical therapy for CHF for now, will need life vest, cardiology following
--- NOTE | 2019-07-20 10:46 | PRG ---
DATE OF SERVICE: 07/20/2019 SUBJECTIVE: This morning, the patient is better, less hemoptysis ,no SOB OBJECTIVE: VITAL SIGNS: Sats are 98% on room air, respirations 24, temperature 98, pulse 68, blood pressure 151/73. CHEST: Minimal crackles. CARDIAC: Normal S1 and S2. No gallops. ABDOMEN: No masses. ASSESSMENT: 1. Congestive heart failure. 2. Respiratory failure. 3. Encephalopathy. 4. Possibly transient ischemic attack. PLAN: At this stage, we will switch over to oral antibiotics. I do not see evidence of any pneumonia, most of his finding, hemoptysis secondary to congestive heart failure. Disposition as per Cardiology. Job ID: [id number] MTDD
--- NOTE | 2019-07-20 10:54 | RAD ---
RADIOGRAPH CHEST 2 VIEW: DATE: 07/20/2019 TIME: 10:37 AM HISTORY: 78-year-old male with congestive heart failure, now with hemoptysis. COMPARISON: 07/18/2019 FINDINGS: Shallow inspiration. Interstitial-alveolar pulmonary densities bilaterally, greatest at right upper l obe. No pneumothorax. No interval change. IMPRESSION: No major interval change in the bilateral pulmonary densities, which could either represent pulmonary edema or pneumonia.
--- NOTE | 2019-07-20 16:11 | DIS ---
DATE OF ADMISSION: 07/15/2019 DATE OF DISCHARGE: 07/21/2019 PRIMARY CARE PHYSICIAN: Dr. Adam Aranda. DISCHARGE DISPOSITION: Rehab. PRIMARY DISCHARGE DIAGNOSES: 1. Acute metabolic encephalopathy. 2. New onset systolic congestive heart failure. 3. Abnormal LFT, suspecting from rhabdomyolysis. 4. Nonsustained ventricular tachycardia. 5. Acute kidney injury. 6. Aspiration pneumonia, suspected. SECONDARY DISCHARGE DIAGNOSES: Gastroesophageal reflux disease, benign enlargement of prostate, physical deconditioning, hypertension, and dementia. PRIMARY PROCEDURE/OPERATION: None. RADIOLOGIST INVESTIGATION: On admission, CT of brain was negative for any acute intracranial process. CT of head and neck angiography showed mild diminished contrast within anterior right sylvian branch without any occlusion. CT cervical spine showed no acute process. CT thoracic spine showed no fracture or dislocation. Abdomen and pelvis CT scan showed colonic diverticulosis, fibrotic lung changes. Echocardiography showed EF 20% to 25%. SIGNIFICANT LABORATORY DATA: WBC 12.6, hemoglobin 12.6, platelet 173. INR 1.1. Sodium 147, potassium 3.4, BUN 32, creatinine 0.99, calcium 8.5. CK of 609. AST 76, ALT 54, alkaline phosphatase 57. Urinalysis unremarkable. RPR negative. Blood culture and urine culture negative. DISCHARGE MEDICATIONS: 1. Tylenol 650 mg b.i.d. p.r.n. 2. Aricept 5 mg p.o. daily. 3. The patient will continue his ophthalmic drops as per previous. 4. Lamotrigine 25 mg daily. 5. Omeprazole 40 mg daily. 6. Zoloft 50 mg daily. 7. Amlodipine 5 mg daily. 8. Aspirin 81 mg daily. 9. Coreg 25 mg b.i.d. 10. Lisinopril 20 mg daily. 11. Omnicef 300 mg b.i.d. 12. Flomax 0.4 mg p.o. daily. CONTRAINDICATION: None. The patient and family member refused to go for LifeVest. CODE STATUS: DNR. INPATIENT HUC: Cardiology group was following while in hospital for new onset systolic CHF. Neurology was following for metabolic encephalopathy. Nephrology was following for abnormal electrolytes. TEST RESULTS PENDING ON DISCHARGE: None. ALLERGIES: PENICILLIN. DISCHARGE PLAN: Posthospital, the patient is discharged to rehab. Subsequently , the patient will follow up with Dr. Abbott as instructed. HOSPITAL COURSE: A 78-year-old male with above-mentioned medical problem, who was admitted by Dr. Eugene. Please see his H and P for further details. The patient was admitted for altered mental status. In the emergency room, CT of brain was negative. CT cervical spine and thoracic spine also negative. Angiography of head and neck was unremarkable. The patient was admitted to telemetry floor. The patient had acute rhabdomyolysis and leukocytosis. Initially, suspected for aspiration pneumonia and the patient was treated with empiric antibiotic therapy. He had mild acute kidney injury and abnormal electrolytes that were corrected while in hospital. He also had abnormal LFT that was related with rhabdomyolysis. All workup showed new onset systolic heart failure. The patient's metabolic encephalopathy resolved, but he has physical deconditioning and that is why he was requiring rehabilitation. His CT of abdomen and pelvis was unremarkable. On discharge, we changed to Omnicef for few more days. Above-mentioned medication adjustment was done. I have seen and examined the patient at bedside today. Please see my progress note from today for further details as this patient has low EF and he had nonsustained ventricular tachycardia that is why we discussed with the patient and family member about need of LifeVest, but they do not want to continue with LifeVest and the patient was DNR. Out of hospital DNR paperwork was done. Job ID: [id number] [facility]
[2019-07-20] MEDS: Cefdinir 300 MG CAP PO SCH (21:41)
[2019-07-21] MEDS: Lorazepam 2 MG/ML VIAL SLOW IVP PRN (00:48)
[2019-07-21 08:02] LABS: Hemoglobin 13.6 g/dL (14.0-18.0); Mean Corpuscular HGB CONC 33.2 g/dL (32.0-36.0); Mean Corpuscular Hemoglobin 32.9 pg (27.0-31.0); Mean Platelet Volume 7.7 fL (7.4-10.4); Platelet Count 216 thou/uL (130-400); RBC Distribution Width 12.7 % (11.5-14.5); Red Blood Cell (RBC) Count 4.13 mill/uL (4.70-6.10); White Blood Cell (WBC) Count 13.6 thou/uL (4.8-10.8)
[2019-07-21 08:19] LABS: Anion Gap 12 mmol/L (10-20); BUN (Urea Nitrogen) 25 mg/dL (8.4-25.7); CK (CPK) 463 U/L (30-200); Calc. Creatinine Clearance 74 mL/min (70-130); Calcium 8.6 mg/dL (7.8-10.44); Carbon Dioxide 27 mmol/L (23-31); Chloride 110 mmol/L (98-107); Estimated GFR-MDRD 77; Glucose 122 mg/dL (83-110); Potassium 3.4 mmol/L (3.5-5.1); Sodium 146 mmol/L (136-145)
[2019-07-21] MEDS: GATIFLOXACIN 0.5% L EYE SCH (09:39)
[2019-07-21] MEDS: Ofloxacin 0.3% Ophth Soln L EYE SCH ×2 (09:39→12:02)
[2019-07-21] MEDS: Aspirin 81 mg Enteric Coated Tablet PO SCH (09:40)
[2019-07-21] MEDS: Fluorometholone 0.1% Ophth Soln 5 ml Bottle L EYE SCH (09:40)
[2019-07-21] MEDS: Tamsulosin HCl 0.4 MG CAP PO SCH (09:41)
[2019-07-21] MEDS: lamoTRIgine 25 MG TAB PO SCH (09:41)
[2019-07-21] MEDS: Famotidine 20 MG TAB PO SCH (09:42)
[2019-07-21] MEDS: Cefdinir 300 MG CAP PO SCH (09:42)
[2019-07-21] MEDS ORDERED: Potassium Chloride 20 MEQ TAB PO SCH (09:45)
--- NOTE | 2019-07-21 09:45 | PRG ---
DATE OF SERVICE: 07/21/2019 SUBJECTIVE: This morning, he is still confused, but no shortness of breath. His x-ray shows improvement yesterday, bilateral infiltrates. OBJECTIVE: VITAL SIGNS: Temperature 98, pulse , respirations , saturations are 93% on room air, blood pressure 155/87. CHEST: No crackles. No wheezing. CARDIAC: Normal S1 and S2. No gallops. ABDOMEN: No masses. ASSESSMENT: 1. Congestive heart failure. 2. Hemoptysis. 3. Encephalopathy. 4. Dementia. PLAN: Pulmonary vines, home any time. Follow up with his primary care physician. Job ID: [id number]
[2019-07-21] MEDS: Carvedilol 25 MG TAB PO SCH (09:49)
[2019-07-21] MEDS: Amlodipine 5 MG TAB PO SCH (09:49)
[2019-07-21] MEDS: Lisinopril 20 MG TAB PO SCH (09:49)
--- NOTE | 2019-07-21 10:06 | PDOC.HOSPP ---
- Subjective Encounter Date: 07/21/19 Encounter Time: 07:30 Subjective: Patient seen and examined. No new complaints. No overnight events - Objective Vital Signs & Weight: Vital Signs (12 hours) Temp Pulse Resp BP BP Pulse Ox 07/21/19 07:45 98.1 F 82 22 H 155/87 H 93 L 07/21/19 07:21 92 L 07/21/19 07:19 87 20 92 L 07/21/19 03:57 98.8 F 86 22 H 132/74 91 L 07/20/19 23:10 69 16 07/20/19 23:06 97.9 F 75 21 H 150/77 H 91 L Weight Admit Weight 178 lb Weight 178 lb I&O: 07/20/19 07/21/19 07/22/19 06:59 06:59 06:59 Intake Total 1057 1972 177 Output Total 1800 Balance -743 1972 177 Result Diagrams: 07/21/19 07:41 07/21/19 07:41 EKG Reviewed by me: Yes Hospitalist ROS - Review of Systems Constitutional: denies: fever, chills, sweats, weakness, malaise, other Eyes: denies: pain, vision change, conjunctivae inflammation, eyelid inflammation, redness, other ENT: denies: ear pain, ear discharge, nose pain, nose discharge, nose congestion , mouth pain, mouth swelling, throat pain, throat swelling, other Respiratory: denies: cough, dry, shortness of breath, hemoptysis, SOB with excertion, pleuritic pain, sputum, wheezing, other Cardiovascular: denies: chest pain, palpitations, orthopnea, paroxysmal noc. dyspnea, edema, light headedness, other Gastrointestinal: denies: nausea, vomiting, abdominal pain, diarrhea, constipation, melena, hematochezia, other Genitourinary: denies: dysuria, frequency, incontinence, hematuria, retention, other Musculoskeletal: denies: neck pain, shoulder pain, arm pain, back pain, hand pain, leg pain, foot pain, other Skin: denies: rash, lesions, tabitha, bruising, other - Medication Medications: Active Medications Generic Name Dose Route Start Last Admin Trade Name Freq PRN Reason Stop Dose Admin Acetaminophen 650 mg 07/15/19 13:11 07/20/19 04:21 Tylenol PO 650 mg Q4H PRN Administration Headache/Fever/Mild Pain (1-3) Albuterol/Ipratropium 3 ml 07/15/19 19:00 07/21/19 07:19 Duoneb NEB 3 ml [id number] AZIZA Administration Amlodipine Besylate 5 mg 07/19/19 09:00 07/21/19 09:49 Norvasc PO Not Given DAILY [facility]ENDING [facility] TO [facility] Aspirin 81 mg 07/16/19 09:00 07/21/19 09:40 Ecotrin PO 81 mg DAILY AZIZA Administration Carvedilol 25 mg 07/18/19 21:00 07/21/19 09:49 Coreg PO Not Given BID AZIZA Cefdinir 300 mg 07/20/19 21:00 07/21/19 09:42 Omnicef PO 07/23/19 21:01 300 mg BID AZIZA Administration Famotidine 20 mg 07/16/19 09:00 07/21/19 09:42 Pepcid PO 20 mg DAILY AZIZA Administration Fluorometholone 1 drop 07/16/19 15:00 07/21/19 09:40 Flarex 0.1% Ophth Soln L EYE 1 drop TID AZIZA Administration Lamotrigine 25 mg 07/16/19 09:00 07/21/19 09:41 Lamictal PO 25 mg DAILY [facility] TO [facility] Administration Lisinopril 20 mg 07/17/19 09:00 07/21/19 09:49 Zestril PO Not Given DAILY PENDING S[facility] TO [facility] Lorazepam 1 mg 07/15/19 22:10 07/21/19 00:48 Ativan SLOW IVP 1 mg Q6H PRN Administration Anxiety Melatonin 3 mg 07/16/19 13:38 07/18/19 20:44 Melatonin PO 3 mg HSPRN PRN Administration Insomnia Gatifloxacin 0.5% 0 each 07/16/19 15:00 07/21/19 09:39 Ophth Soln L EYE 1 each TID AZIZA Administration Ofloxacin 0.3% Ophth 0 each 07/16/19 17:00 07/21/19 09:39 Soln L EYE 1 each QID AZIZA Administration Sertraline HCl 50 mg 07/16/19 09:00 07/21/19 09:41 Zoloft PO 50 mg DAILY AZIZA Administration Tamsulosin HCl 0.4 mg 07/16/19 09:00 11/08/19 09:41 Flomax PO 0.4 mg DAILY AZIZA Administration - Exam General Appearance: NAD, awake alert Eye: PERRL, anicteric sclera ENT: normocephalic atraumatic, no oropharyngeal lesions Neck: supple, symmetric, no JVD, no thyromegaly Heart: RRR, no murmur, no gallops, no rubs, normal peripheral pulses Respiratory: CTAB, no wheezes, no rales, no ronchi, normal chest expansion Gastrointestinal: soft, non-tender, non-distended, normal bowel sounds Extremities: no cyanosis, no clubbing Skin: normal turgor, no lesions Neurological: no focal deficits Musculoskeletal: normal tone, normal strength Psychiatric: normal affect, normal behavior Hosp A/P (1) Acute metabolic encephalopathy Code(s): G93.41 - METABOLIC ENCEPHALOPATHY Status: Resolved (2) Aspiration pneumonia Code(s): J69.0 - PNEUMONITIS DUE TO INHALATION OF FOOD AND VOMIT Status: Suspected Qualifiers: Laterality: unspecified laterality Lung location: unspecified part of lung (3) Rhabdomyolysis Code(s): M62.82 - RHABDOMYOLYSIS Status: Acute Qualifiers: Rhabdomyolysis type: non-traumatic Qualified Code(s): M62.82 - Rhabdomyolysis (4) New onset of congestive heart failure Code(s): I50.9 - HEART FAILURE, UNSPECIFIED Status: Acute (5) Abnormal blood electrolyte level Code(s): E87.8 - OTH DISORDERS OF ELECTROLYTE AND FLUID BALANCE, NEC Status: Acute (6) Abnormal LFTs Code(s): R94.5 - ABNORMAL RESULTS OF LIVER FUNCTION STUDIES Status: Acute (7) GERD (gastroesophageal reflux disease) Code(s): K21.9 - GASTRO-ESOPHAGEAL REFLUX DISEASE WITHOUT ESOPHAGITIS Status: Chronic Qualifiers: Esophagitis presence: without esophagitis Qualified Code(s): K21.9 - Gastro -esophageal reflux disease without esophagitis (8) BPH (benign prostatic hyperplasia) Code(s): N40.0 - BENIGN PROSTATIC HYPERPLASIA WITHOUT LOWER URINRY TRACT SYMP Status: Chronic Qualifiers: Lower urinary tract symptom presence: symptoms absent Qualified Code(s): N40.0 - Benign prostatic hyperplasia without lower urinary tract symptoms (9) NSVT (nonsustained ventricular tachycardia) Code(s): I47.2 - VENTRICULAR TACHYCARDIA Status: Acute - Plan old records reviewed/req, PT/OT, social work manager 07/20/19- pt's mental status has improved to baseline, he needs more free water which I have advised him, replace potassium today, will need rehab/snu placement , continue omnicef for now, continue medical therapy for CHF for now, will need life vest, cardiology following 07/21/19- stable for discharge today, BP stable, vitals OK, pt is more alert, give KCL 40 meq one time dose, see discharge anthony
--- NOTE | 2019-07-21 11:09 | DIS ---
DATE OF ADMISSION: 07/15/2019 DATE OF DISCHARGE: 07/21/2019 ADDENDUM: This patient was discharged yesterday on July 20, 2019. Please see my discharge summary dictated on that day. There is no change in my discharge summary. After discharge of this patient in the evening time, the patient was little bit more drowsy and his blood pressure was relatively low and that is why, we held his discharge and today, the patient is more alert. He is back to normal. His potassium is replaced. The patient will be going to alf home and medication will be adjusted over there at senior care. Job ID: [id number]
[2019-07-21 11:49] VITALS: BP 161/85; TEMP 97.8
--- NOTE | 2019-07-24 03:28 | PQF ---
KAMILA STORY SALIM NOORJIBHAI MD [id number] [facility] [id number] CLINICAL DOCUMENTATION CLARIFICATION FORM: POST DISCHARGE Addendum to original discharge summary date: ____ Late entry note date: __ DATE: 07/24/19 ATTN:Henrik Garcia Please exercise your independent, professional judgment in responding to the clarification form. Clinical indicators are provided on the bottom of this form for your review Based on your clinical judgment, can you please specify etiology of patient's metabolic encephalopathy? Please check appropriate box(s): [ ] Acute kidney injury [ ] Acute CVA [ ] Dehydration [ ] Other diagnosis [ ] Unable to determine For continuity of documentation, please document condition throughout progress notes and discharge summary. Thank You. CLINICAL INDICATORS - SIGNS / SYMPTOMS / LABS ED Notes 07/15 "Altered mental status" ED Notes 07/15 "patient presents foe evaluation of stroke" ED Notes 07/15 "Rule out CVA" HP 07/15 "CC: acute metabolic encephalopathy, possinle stroke, rhadomylosis and ANTOINE" Consult 07/15 "acute mental status changes due to acute metabolic encephalopathy superimporsed on baseline dementia" PN 07/16 "Acute encephaopathy looks multifactorial" PN 07/17 "acute mental status change due to CVA or metabolic encephalopathy superimposed on basal dementia" Consult 07/18 "clearing encephalopathy possible secondary to an anoxic ecent due to a cardiac-related arrhythmia" DS 07/21 "CT of brain was negative for any acute intracranial process" RISK FACTORS ED Notes 07/15-78 years old male ED Notes 07/15-History of TIA ED Notes 07/15-HLD ED Notes 07/15-HTN ED Notes 07/15-High Cholesterol HP 07/15-ANTOINE HP 07/15-Dehdyration HP 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 All Rights Reserved [email or web address] [not provided] MTDD
--- NOTE | 2019-07-24 10:38 | EEG ---
Referring Physician: SAMAN EEG # [id number] TEST TYPE: ROUTINE PORTABLE INPATIENT REPORT: AN EEG USING THE INTERNATIONAL TEN-TWENTY SYSTEM OF ELECTRODE PLACEMENT WAS PERFORMED. The waking background is a 8 hertz alpha frequency. The patient remained awake throughout the study. Photic stimulation was unremarkable. No epileptiform features were noted. IMPRESSION: THIS IS A NORMAL AWAKE EEG. Rugby League Footballer: CHRIS Valet Parker: [email or web address]
== END 2019-07-21 13:53 | DRG 70 ==
LOC: ERS 09:41 → 2SE 13:53
PROVIDERS: ADMIT Internal Medicine; ATTEND Internal Medicine
DX: G93.41 Metabolic encephalopathy (principal); J69.0 Pneumonitis due to inhalation of food and vomit; I50.21 Acute systolic (congestive) heart failure; J96.90 Respiratory failure, unspecified, unspecified whether with hypoxia or hypercapnia; N17.9 Acute kidney failure, unspecified; M62.82 Rhabdomyolysis; F03.91 Unspecified dementia, unspecified severity, with behavioral disturbance; E87.1 Hypo-osmolality and hyponatremia; I42.9 Cardiomyopathy, unspecified; I47.2 Ventricular tachycardia; R04.2 Hemoptysis; I13.0 Hypertensive heart and chronic kidney disease with heart failure and stage 1 through stage 4 chronic kidney disease, or unspecified chronic kidney disease; Z23 Encounter for immunization; Z66 Do not resuscitate; E78.5 Hyperlipidemia, unspecified; E78.00 Pure hypercholesterolemia, unspecified; F32.9 Major depressive disorder, single episode, unspecified; N40.0 Benign prostatic hyperplasia without lower urinary tract symptoms; K21.9 Gastro-esophageal reflux disease without esophagitis; I44.7 Left bundle-branch block, unspecified; E86.0 Dehydration; I25.10 Atherosclerotic heart disease of native coronary artery without angina pectoris; W18.30XA Fall on same level, unspecified, initial encounter; S50.311A Abrasion of right elbow, initial encounter; N18.3 Chronic kidney disease, stage 3 (moderate); S00.83XA Contusion of other part of head, initial encounter; I34.0 Nonrheumatic mitral (valve) insufficiency; E87.6 Hypokalemia; Z86.73 Personal history of transient ischemic attack (TIA), and cerebral infarction without residual deficits; Z88.0 Allergy status to penicillin; Z79.899 Other long term (current) drug therapy; I25.2 Old myocardial infarction
CPT/HCPCS: 0042T; 36415; 36416; 70450; 70496; 70498; 71045; 72125; 72128; 74176; 74230; 80048; 80053; 80061; 80069; 81003; 81015; 82550; 82553; 82805; 83735; 83880; 84100; 84146; 84484; 85025; 85027; 85610; 85730; 86780; 87040; 87086; 90471; 90662; 93005; 93306; 94640; 95816; 95819; 96360; 96361; G0008; J0692; J0696; J1650; J1940; J2060; J2405; J3486; J3490; J7620; Q9966

== ENCOUNTER 2019-07-23 02:49 | Inpatient (IN) | payer MEDICARE, BC ==
[2019-07-23 03:29] LABS: Hemoglobin 13.6 g/dL (14.0-18.0); Mean Corpuscular HGB CONC 32.9 g/dL (32.0-36.0); Mean Corpuscular Hemoglobin 32.5 pg (27.0-31.0); Mean Corpuscular Volume 98.8 fL (78.0-98.0); Mean Platelet Volume 8.4 fL (7.4-10.4); Platelet Count 227 thou/uL (130-400); RBC Distribution Width 12.8 % (11.5-14.5); Red Blood Cell (RBC) Count 4.19 mill/uL (4.70-6.10); White Blood Cell (WBC) Count 16.8 thou/uL (4.8-10.8)
[2019-07-23 03:49] LABS: Lymphocytes 7 % (21-51); MDiff Complete? YES; Monocytes 9 % (0-10); Neutrophil 81 % (42-75); Reactive Lymphocytes 3 % (0-10)
[2019-07-23 04:02] LABS: CKMB 2.6 ng/mL (0-6.6)
[2019-07-23 04:12] LABS: Albumin 3.3 g/dL (3.4-4.8)
[2019-07-23 04:13] LABS: Chloride 103 mmol/L (98-107)
[2019-07-23 04:14] LABS: Calcium 8.1 mg/dL (7.8-10.44); Potassium 3.8 mmol/L (3.5-5.1); Sodium 143 mmol/L (136-145)
[2019-07-23 04:15] LABS: Globulin 2.6 g/dL (2.4-3.5); Glucose 117 mg/dL (83-110); Protein, Total 5.9 g/dL (5.8-8.1)
[2019-07-23 04:16] LABS: Anion Gap 18 mmol/L (10-20); Carbon Dioxide 26 mmol/L (23-31)
[2019-07-23 04:17] LABS: Bilirubin, Total 1.1 mg/dL (0.2-1.2)
[2019-07-23 04:18] LABS: Alkaline Phosphatase 62 U/L (40-110); Calc. Creatinine Clearance 0 mL/min (70-130); Estimated GFR-MDRD 86
[2019-07-23 04:19] LABS: BUN (Urea Nitrogen) 25 mg/dL (8.4-25.7)
[2019-07-23 04:20] LABS: AST (SGOT) 42 U/L (5-34)
[2019-07-23 04:21] LABS: ALT (SGPT) 40 U/L (8-55)
[2019-07-23 04:21] LABS: Bilirubin Negative (Negative); Blood, Urine Negative (Negative); Clarity Clear (Clear); Glucose, Urine (Dipstick) Normal (Negative); Leukocyte Negative Leu/uL (Negative); Nitrite Negative (Negative); Protein, Urine (Dipstick) 20 mg/dL (Neg-Trace); Urobilinogen Normal mg/dL (Less than 2)
[2019-07-23] MEDS ORDERED: Furosemide 20 MG/2 ML VIAL ONE (05:16)
[2019-07-23] MEDS ORDERED: Enoxaparin Sodium 80 MG/0.8 ML SYRINGE ONE (05:16)
[2019-07-23] MEDS ORDERED: Nitroglycerin 2% Ointment 1 INCH/1 GM Packet ONE (05:16)
[2019-07-23] MEDS ORDERED: Aspirin Chewable 81 MG TAB ONE (05:16)
--- NOTE | 2019-07-23 05:26 | PDOC.EVN ---
Event Note - Event Note Event Note: [id number] HP
[2019-07-23 05:53] LABS: Troponin I 0.186 ng/mL (< 0.028)
--- NOTE | 2019-07-23 06:33 | HP ---
CHIEF COMPLAINT: Shortness of breath. HISTORY OF PRESENT ILLNESS: Mr. Bedolla is a 78-year-old male with history of myocardial infarction; congestive heart failure, systolic; cardiomyopathy; COPD, presents to the emergency room with shortness of breath. The patient was recently admitted and discharged from the hospital after being treated for acute kidney injury, suspected aspiration pneumonia, and acute CHF. The patient was in respiratory distress, tachypneic, and had a low-grade temperature around 100. The recent ejection fraction was 25%. Workup in the emergency room, the patient was in respiratory distress, placed on BiPAP. BNP is elevated at 1407. Troponin is detectable with 0.15. EKG showed left bundle branch. The patient denies chest pain. Also, he was found to have elevated WBC of 16.8, hemoglobin 13.6. CTA of the chest was done. PE was ruled out, but the patient was found to have pulmonary edema. IV Lasix is being given in the ED, aspirin and Lovenox. The patient is being admitted to hospital for further management. PAST MEDICAL HISTORY: 1. Myocardial infarction. 2. Recently diagnosed with congestive heart failure, cardiomyopathy. 3. Hyperlipidemia. 4. TIA. 5. Hypertension. PAST SURGICAL HISTORY: The patient had a surgery for a pocket in the esophagus? PAST PSYCHIATRIC HISTORY: Depression. SOCIAL HISTORY: Denies alcohol use, drug use, or smoking history. FAMILY HISTORY: Reviewed and noncontributory. HOME MEDICATIONS: Please see home medication reconciliation form for updated medications. ALLERGIES: PENICILLIN. REVIEW OF SYSTEMS: Review of 14 systems negative except what is mentioned in the history of present illness. PHYSICAL EXAMINATION: GENERAL: The patient is awake, alert, in moderate respiratory distress, on BiPAP. VITAL SIGNS: Blood pressure 136/78, pulse is 82, respiratory rate is 26, temperature 99.8, oxygen saturations 99% on BiPAP. HEAD AND NECK: Normocephalic, atraumatic. NECK: Supple. CHEST: Few bibasilar crackles. HEART: S1, S2. Regular. ABDOMEN: Soft with mild abdominal tenderness. Bowel sounds present. NEUROLOGIC: Awake, alert, oriented x3. PSYCHIATRIC: Normal mood. EXTREMITIES: No clubbing, no cyanosis. LABORATORY DATA: As mentioned above in the history of present illness. CTA of the chest as mentioned above in the history of present illness. ASSESSMENT: 1. Acute exacerbation of congestive heart failure, systolic. 2. Cardiomyopathy with ejection fraction of 25%. 3. Indeterminate troponin. The patient denies chest pain. 4. Hypertension. 5. History of myocardial infarction. 6. Hyperlipidemia. 7. History of transient ischemic attack. PLAN: 1. Admit to [facility]. 2. Continue with BiPAP for now. 3. IV diuresis. 4. Aspirin. 5. We will give one dose of Lovenox for now and reassess in a.m. 6. Serial cardiac enzymes. 7. Consult Cardiology in a.m. for evaluation and further recommendations. 8. Reconcile home medications. 9. DVT prophylaxis. The patient was given Lovenox. 10. Expected length of stay, 2 midnights or more. Job ID: [id number]
[2019-07-23 06:43] VITALS: BMI 22.4
[2019-07-23] MEDS: Furosemide 40 MG/4 ML VIAL SLOW IVP SCH ×2 (06:44→14:34)
[2019-07-23] MEDS ORDERED: Carvedilol 6.25 MG TAB PO SCH (08:30)
--- NOTE | 2019-07-23 10:20 | CT ---
PRELIMINARY REPORT/[facility]/EMERGENCY AFTER HOURS PROCEDURE: PROCEDURE INFORMATION: Exam: CT Angiography Chest With Contrast Exam date and time: 07/23/2019 3:38 AM Clinical history: 78 years old, male; Shortness of breath; Patient HX: PT reports to er from [facility]hab via EMS with C/O SOB, difficulty breathing. 78% on 4 L TECHNIQUE: Imaging protocol: Computed tomographic angiography of the chest with intravenous contrast. 3D renderi ng: MIP reconstructed images were created and reviewed. COMPARISON: No relevant prior studies available. FINDINGS: Pulmonary arteries: There is no evidence of peripheral filling defects within the pulmonary arterial circulation to suggest pulmonary embolism. Aorta: Mild vascular calcification is present. No aortic aneurysm. No aortic dissection. Lungs: There is diffuse dependent bilateral lung central lobular opacification compatible with severe pulmonary edema pattern. Pleural space: There are small bilateral pleural effusions. Heart: Unremarkable. No cardiomegaly. No pericardial effusion. Liver: The liver demonstrates punctate calcifications, consistent with remote granulomatous organism exposure. Gallbladder and bile ducts: Cholelithiasis is noted. Spleen: The spleen demonstrates punctate calcifications, consistent with remote granulomatous organis m exposure. Lymph nodes: There are right hilar lymph node calcifications probably related to granulomatous organi sm exposure. Bones/joints: Unremarkable. No acute fracture. Soft tissues: Unremarkable. IMPRESSION: 1. There is no CT evidence of acute pulmonary embolism. 2. Severe pulmonary edema pattern. Thank you for allowing us to participate in the care of your patient. Dictated and Authenticated by: Kali David MD 07/23/2019 4:06 AM Central Time ([place]) FINAL REPORT EMERGENCY AFTER HOURS CT ANGIOGRAM CHEST WITH 3D RENDERING: DATE: 07/23/19 TIME: 0340 hours IMPRESSION: No convincing CT evidence for acute pulmonary embolism. Extensive bilateral diffuse ground-glass opac ity changes throughout both lungs. This report is in agreement with the preliminary report by Shane. POS: [facility]
[2019-07-23] MEDS: Aspirin 325 MG TAB PO SCH (10:29)
--- NOTE | 2019-07-23 11:21 | PDOC.HOSPP ---
- Subjective Encounter Date: 07/23/19 Encounter Time: : Subjective: 78 y/o male with recent acute cardiomyopathy with EF in 20's discharged from the hospital few days ago after treatment for acute metabolic encephalopathy, ANTOINE and pneumonia, now readmitted with worsening SOB. Found to have acute CHF and was started on BIPAP and lasix with improvement. No fever or confusion. - Objective Vital Signs & Weight: Vital Signs (12 hours) Temp Pulse Pulse Ox 07/23/19 10:21 99.0 F 07/23/19 07:30 94 L 07/23/19 07:06 99.4 F 07/23/19 06:43 99.3 F 07/23/19 06:37 74 94 L Weight Weight 165 lb 9.6 oz Most Recent Monitor Data Heart Rate from ECG 76 NIBP 138/71 NIBP BP-Mean 93 Respiration from ECG 14 SpO2 96 Result Diagrams: 07/23/19 03:05 07/23/19 03:05 Hospitalist ROS - Medication Medications: Active Medications Generic Name Dose Route Start Last Admin Trade Name Tazq PRN Reason Stop Dose Admin Aspirin 325 mg 07/23/19 09:00 07/23/19 10:29 Aspirin PO Not Given DAILY [facility] Furosemide 40 mg 07/23/19 06:00 07/23/19 06:44 Lasix SLOW IVP Not Given 0600,1400 AZIZA - Exam General Appearance: awake alert Eye: anicteric sclera ENT: normocephalic atraumatic Neck: supple, symmetric Heart: RRR Respiratory - other findings: fair air entry with few bibasal crackles. No rhonchi Gastrointestinal: soft, non-tender, non-distended, normal bowel sounds Extremities: no cyanosis, no edema Neurological: cranial nerve grossly intact, no focal deficits Psychiatric: normal affect, A&O x 3 Hosp A/P (1) Acute respiratory failure with hypoxia Code(s): J96.01 - ACUTE RESPIRATORY FAILURE WITH HYPOXIA Status: Acute (2) Acute on chronic systolic (congestive) heart failure Code(s): I50.23 - ACUTE ON CHRONIC SYSTOLIC (CONGESTIVE) HEART FAILURE Status : Acute (3) Cardiomyopathy Code(s): I42.9 - CARDIOMYOPATHY, UNSPECIFIED Status: Acute (4) Elevated troponin Code(s): R79.89 - OTHER SPECIFIED ABNORMAL FINDINGS OF BLOOD CHEMISTRY Status : Acute - Plan Continue BIPAP, oxygen supplementation and diuretic therapy. Follow troponin monitor electrolytes and replete as needed. Cardiology consult
[2019-07-23 12:39] LABS: Troponin I 0.185 ng/mL (< 0.028)
--- NOTE | 2019-07-23 13:34 | CON ---
DATE OF CONSULTATION: 07/23/2019 REASON FOR CONSULTATION: Heart failure. PRIMARY AUTO CARRIER DRIVER: Tom Abbott MD HISTORY OF PRESENT ILLNESS: Mr. Bedolla is a pleasant 78-year-old white gentleman who comes to the hospital for worsening shortness of breath. He was here just a week ago for similar issues. EF was 20% to 25% and was in heart failure. He was diuresed. Family chose conservative therapy given his dementia and his advanced age. He was DNR/DNI, and he was discharged to the correction facility where he slowly started to accumulate fluid and become more and more short of breath, so he had to come back in for shortness of breath. He was found to be in pulmonary edema as well from heart failure and started IV diuresis. Mr. Bedolla is currently on a BiPAP. Family tells me that he is unable to urinate. They were doing in and out catheters in the ER to get urine out. He does not have a Kingston at that time. He denies any chest pain, tightness, or pressure. Family is concerned as he has a DNR, but they are concerned that we are not going to treat because of the DNR, I clarified this. PAST MEDICAL HISTORY: 1. History of an MA apparently. It was a sudden heart attack. He was told this more than 15 years ago. He has never had a catheterization or stents. 2. TIAs. 3. Hyperlipidemia. 4. BPH. 5. Dementia. 6. Vasectomy with reversal. 7. Esophageal surgery. 8. Hypertension. 9. GERD. 10. Depression. OUTPATIENT MEDICATIONS: 1. Lamotrigine. 2. Flomax. 3. Sertraline. 4. Omeprazole. 5. Ofloxacin. 6. Lisinopril 20 mg a day. 7. Gatifloxacin ophthalmic. 8. Flarex ophthalmic. 9. Donepezil 5 mg a day. 10. Cefdinir b.i.d. 11. Carvedilol 25 mg b.i.d. 12. Aspirin 81 a day. 13. Amlodipine 5 mg a day. 14. Acetaminophen p.r.n. ALLERGIES: PENICILLIN. SOCIAL HISTORY: No alcohol, tobacco, or drugs. FAMILY HISTORY: Noncontributory. REVIEW OF SYSTEMS: A 12-point review of systems was done and all negative unless stated in the history of present illness. PHYSICAL EXAMINATION: VITAL SIGNS: Temperature 99.0, pulse 79, respiratory rate 28, saturating 97% on 50% FiO2 on the BiPAP, blood pressure 147/78. GENERAL: Awake, alert, oriented x3, in no distress. HEENT: Normocephalic and atraumatic. NECK: Supple. LUNGS: Crackles at the bases. CARDIOVASCULAR: S1 and S2. No S3 or S4. There is a grade 2/6 systolic murmur at the right upper sternal border. ABDOMEN: Soft. Tender to palpation in the lower abdomen, likely a full bladder. EXTREMITIES: Trace edema. SKIN: Warm and dry. LABORATORY DATA: Laboratory work was reviewed. CBC with a white count of 16, hemoglobin of 13, hematocrit 41, platelet count 227. Chemistry was unremarkable. Glucose was 117. AST 42. Troponin of 0.15, then 0.18 in the indeterminate range. BNP is 1407. UA was unremarkable. Influenza A and B are both negative. CT angio of the chest showed no evidence of pulmonary embolism with severe pulmonary edema. ASSESSMENT AND PLAN: 1. Acute on chronic systolic heart failure. 2. Dilated cardiomyopathy, ejection fraction of 20% to 25%. 3. Benign prostatic hypertrophy and possibly some level of urinary retention. PLAN: 1. We will insert Kingston catheter to have more accurate In's and Out's and make sure that he is urinating. 2. If Kingston catheter is dry, then we will increase the Lasix to 80 mg twice a day. 3. Continue beta wander. 4. Continue aspirin. 5. I do not see a clear indication for full anticoagulation with Lovenox. I would switch down to DVT prophylaxis as this is not an acute coronary syndrome and I do not see any evidence of DVTs or PEs. Thank you for letting us to participate in the care of your patient. Dr. Abbott, his primary molder operator, will follow up in the morning. Job ID: [id number]
[2019-07-23] MEDS: Acetaminophen 325 MG TAB PO PRN (14:34)
[2019-07-23] MEDS: Lidocaine 5% Patch TD SCH (14:34)
[2019-07-23] MEDS ORDERED: Iopamidol-370 76% 500 ML 1 ML ONE (16:47)
[2019-07-23] MEDS: Carvedilol 6.25 MG TAB PO SCH (17:16)
[2019-07-23] MEDS: Enoxaparin Sodium 80 MG/0.8 ML SYRINGE SC SCH (17:17)
[2019-07-23] MEDS ORDERED: Morphine 2 MG/ML SYRINGE SLOW IVP SCH (19:15)
[2019-07-23] MEDS ORDERED: predniSONE 20 MG TAB PO SCH (19:15)
--- NOTE | 2019-07-23 19:44 | CON ---
DATE OF CONSULTATION: 07/23/2019 SERVICE: Pulmonary Medicine. REASON FOR CONSULTATION: CU patient. HISTORY OF PRESENT ILLNESS: The patient is a pleasant 78-year-old white male with past medical history significant for difficulties with swallowing. Apparently, they are going to try to rehabilitative swallow in the outpatient setting, but in a very short period of time after being discharged from the hospital with a recent pneumonia, he ended up having some aspiration event, hypoxic failure, was brought back to the emergency department. He had findings consistent with volume overload. He was given a dose of Lasix and has had a wonderful response to that medication. That being said, he has failed any type of breaks off the BiPAP today. Any time , we take him off, he has significant desaturation difficulty with breathing, requires to go back on. He has been experienced symptoms, fevers and sweats. He is coughing up significant purulent sputum. He has not had any muscle aches or pains. He had had any headaches or upper respiratory tract congestion. We witnessed him swallow a little bit of water at bedside and almost immediately, he had a choking fit and clear aspiration. As such, he has been made n.p.o. He denies any nausea, vomiting, or diarrhea. He is not having any abdominal discomfort, red hot swollen joints, arthralgias, or new rashes. PAST MEDICAL HISTORY: 1. History of OH. 2. Chronic systolic heart failure, recent diagnosis. 3. Dyslipidemia. 4. Hypertension. 5. TIA. 6. Dementia, early onset. 7. Oropharyngeal dysphagia. PAST SURGICAL HISTORY: EGD, remote. SOCIAL HISTORY: Negative for alcohol, tobacco, or illicit drug use. Recently, he was discharged to a longterm facility, but almost immediately had to come back to the hospital. FAMILY HISTORY: Noncontributory. ALLERGIES: PENICILLIN. MEDICATIONS: List of his inpatient medications was reviewed. No specific updates were made at this time. REVIEW OF SYSTEMS: General, head, ears, eyes, nose, throat, cardiovascular, respiratory, GI, , musculoskeletal, neurologic, and skin is negative except as mentioned in HPI. PHYSICAL EXAMINATION: VITAL SIGNS: Afebrile with a T-max of 99.8, pulse 126, blood pressure 152/89, respirations 23, saturation 93%, currently on BiPAP with 40% FiO2 and a PEEP of 5. GENERAL: The patient is awake and alert, in no apparent distress. LUNGS: Extensive rhonchi are present. There is also some minimal crackling. There is a prolonged expiratory phase. Coarse wheezing is present, but nothing that sounds polyphonic or high-pitched. HEART: Normal rate, regular. ABDOMEN: Soft, nontender, nondistended. Bowel sounds are positive. MUSCULOSKELETAL: No cyanosis or clubbing. There is trace 1+ pitting in the bilateral lower extremities. NEUROLOGICAL: Grossly nonfocal. LABORATORY DATA: WBC 16.8, hemoglobin 13.6, platelets 227,000. Neutrophil count is 81% on top of 7% bands. Basic metabolic profile and liver function studies are unremarkable. Troponin is gently downtrending to 0.185. CK 139, lactate 1.1. Urinalysis is unremarkable. Influenza A and B are negative. IMAGING STUDIES: CTA of the chest demonstrates no evidence of a pulmonary embolism. That being said, there are extensive ground-glass opacifications throughout bilateral lung dumont layer in the posterior aspect of the lung. There are small effusions bilaterally that layer. The left atrium is quite generous in size. The right ventricle is also generous, but the septum appears to have a normal contour. ASSESSMENT: 1. Acute hypoxic respiratory failure. 2. Acute on chronic systolic heart failure. 3. Non-ST elevation OH, secondary to demand. 4. Oropharyngeal dysphagia, quite severe. 5. Dementia, early onset. DISCUSSION AND PLAN: Agree with aggressive diuretics. We will continue giving BiPAP breaks through time. Hopefully, he will tolerate these well. I am going to initiate antibiotics directed to aspiration related organisms. This will include Levaquin and clindamycin. I will give him a 5-day course of both these things. I will give a 5-day course of steroids, initiate nebulized medications. I will put a GI consultation because of his significant oropharyngeal dysphagia. Almost every time this gentleman takes a small drink of water, he has a severe cough. I am concerned that he could be aspirating food down into his lung. Speech pathology will be contacted. On recent swallow study, he had significant pulling in the vallecula, but no overt aspiration; but at bedside, he is having a hard time with any type of swallow. Perhaps it is because he has active respiratory distress, he is tachypneic. He will remain n.p.o. until evaluated by Speech Pathology. At this point, I believe he is clinically dry. As such, I will back off on his Lasix to just once daily. 70 minutes have been devoted to this patient in various activities. I personally reviewed all imaging studies and laboratory data noted within this document. For fifty percent of this time, I was interacting with the patient at the bedside or coordinating care with the care team. For the remainder of the time I was immediately available to the patient in the hospital unit. Job ID: [id number] MTDD
[2019-07-23] MEDS ORDERED: methylPREDNISolone Sod Succ 40 MG VIAL IVP SCH (21:00)
[2019-07-24] MEDS: Clindamycin/D5W 300 MG/50 ML BAG IVPB SCH ×5 (00:25→23:33)
[2019-07-24] MEDS: Lidocaine Patch Removal 1 EACH TOP SCH (02:32)
[2019-07-24] MEDS: Enoxaparin Sodium 80 MG/0.8 ML SYRINGE SC SCH ×2 (05:34→15:11)
[2019-07-24 06:22] LABS: #Eosinphils 0.1 thou/uL (0.0-0.7); #Lymphocytes 0.9 thou/uL (1.20-3.40); #Monocytes 0.4 thou/uL (0.11-0.59); #Neutrophils 12.2 thou/uL (1.40-6.50); %Basophils 0.2 % (0.0-1.0); %Eosinophils 0.6 % (0.0-10.0); %Lymphocytes 6.3 % (21.0-51.0); %Monocytes 2.9 % (0.0-10.0); Hemoglobin 13.8 g/dL (14.0-18.0); Mean Corpuscular HGB CONC 31.8 g/dL (32.0-36.0); Mean Corpuscular Hemoglobin 31.3 pg (27.0-31.0); Mean Corpuscular Volume 98.7 fL (78.0-98.0); Mean Platelet Volume 8.4 fL (7.4-10.4); Platelet Count 269 thou/uL (130-400); RBC Distribution Width 12.4 % (11.5-14.5); Red Blood Cell (RBC) Count 4.42 mill/uL (4.70-6.10); White Blood Cell (WBC) Count 13.6 thou/uL (4.8-10.8)
[2019-07-24 06:36] LABS: Anion Gap 16 mmol/L (10-20); BUN (Urea Nitrogen) 25 mg/dL (8.4-25.7); Calc. Creatinine Clearance 67 mL/min (70-130); Calcium 8.6 mg/dL (7.8-10.44); Carbon Dioxide 28 mmol/L (23-31); Chloride 101 mmol/L (98-107); Estimated GFR-MDRD 79; Glucose 136 mg/dL (83-110); Magnesium 1.9 mg/dL (1.6-2.6); Potassium 3.2 mmol/L (3.5-5.1); Sodium 142 mmol/L (136-145)
[2019-07-24] MEDS ORDERED: predniSONE 20 MG TAB PO SCH (08:00)
[2019-07-24] MEDS: Carvedilol 6.25 MG TAB PO SCH ×2 (08:26→18:12)
[2019-07-24] MEDS: Aspirin 325 MG TAB PO SCH (08:27)
--- NOTE | 2019-07-24 08:58 | CON ---
DATE OF CONSULTATION: 07/24/2019 HISTORY OF PRESENT ILLNESS: Mr. Bedolla recently presented with acute onset of shortness of breath. Mr. Bedolla has a history of a cardiomyopathy, likely ischemic. He was recently in the hospital for a fall likely related to arrhythmic event. Mr. Bedolla appears to be much more lucid today than he was during his last hospitalization. He states he is breathing much better. He has no current specific complaints. He was on BiPAP yesterday and is now on nasal cannula. PHYSICAL EXAMINATION: GENERAL: Patient is a pleasant male who is in no acute distress. The patient appears their stated age. VITAL SIGNS: Blood pressure 144/80, pulse 90, respirations 20. NEUROLOGIC: The patient is alert and oriented x3 with no focal neurologic deficits. HEENT: Sclerae without icterus. Mouth has moist mucous membranes with normal pallor. NECK: No JVD. Carotid upstroke brisk. No bruits bilaterally. LUNGS: Clear to auscultation with unlabored respirations. BACK: No scoliosis or kyphosis. CARDIAC: Regular rate and rhythm with normal S1 and S2. No S3 or S4 noted. No significant rubs, murmurs, thrills, or gallops noted throughout the precordium. PMI is not displaced. There is no parasternal heave. ABDOMEN: Soft, nontender, nondistended. No peritoneal signs present. No hepatosplenomegaly. No abnormal striae. EXTREMITIES: 2+ femoral and 2+ dorsalis pedis pulses. No cyanosis, clubbing, or edema. SKIN: No gross abnormalities. PERTINENT LABORATORY DATA: Hemoglobin 13.8, hematocrit 43.6. Creatinine 0.93. Peak troponin 0.185. BNP of 1603. IMPRESSION: 1. Likely ischemic cardiomyopathy. 2. Acute on chronic systolic heart failure. 3. Underlying dementia. 4. Likely recent arrhythmic event. RECOMMENDATIONS: 1. Continue carvedilol 12.5 mg p.o. b.i.d. 2. Add Entresto low dose. Patient currently not on MARY inhibitor therapy or ARB. 3. Continue aspirin at 325 one p.o. daily. 4. Change Lasix to p.o. dosing. At this point, we will continue aggressive CHF care for Mr. Bedolla. The patient and family in the past have not been interested in anymore aggressive approach. No LifeVest or CV workup was sought per family. Job ID: [id number]
[2019-07-24] MEDS ORDERED: FLU VACC TS2019-20(65YR UP)/PF 180 MCG/0.5 ML SYRINGE IM ONE (09:00)
[2019-07-24] MEDS ORDERED: methylPREDNISolone Sod Succ 40 MG VIAL IVP SCH (09:00)
[2019-07-24] MEDS: Furosemide 40 MG/4 ML VIAL SLOW IVP SCH (09:31)
[2019-07-24] MEDS: Potassium Chloride 20 MEQ TAB PO SCH ×3 (09:32→17:16)
--- NOTE | 2019-07-24 12:09 | PRG ---
DATE OF SERVICE: 07/24/2019 SUBJECTIVE: Mr. Chele Bedolla remains demented this morning, confused. He is less short of breath. Apparently, he is having dysphagia, aspirating most of his food. OBJECTIVE: VITAL SIGNS: Temperature 99, blood pressure is 144/80, sats 95% on 4 L, but he is clearly very encephalopathic. CHEST: Bilateral crackles. CARDIAC: Normal S1 and S2. No gallops. ABDOMEN: No masses. LABORATORY DATA: BNP 1600. White count 13,000, hemoglobin and hematocrit are 13 and 40. X-ray shows CHF. IMPRESSION: Congestive heart failure previous EF was 20%, dementia, aspiration. PLAN: At this stage, I will do comfort care. Discussed with family as they arrive. I will call Palliative Care to see the patient. PT, supportive care. We will follow. Job ID: [id number]
--- NOTE | 2019-07-24 12:23 | PDOC.HOSPP ---
- Subjective Encounter Date: 07/24/19 Encounter Time: 12:19 Subjective: 78 y/o male with recent acute cardiomyopathy with EF in 20's discharged from the hospital few days ago after treatment for acute metabolic encephalopathy, ANTOINE and pneumonia, now readmitted with worsening SOB. Found to have acute CHF and was started on BIPAP and lasix with improvement. Developed urinary retention hence damon catheter was placed. Feeling better. No fever or confusion. - Objective Vital Signs & Weight: Vital Signs (12 hours) Temp Pulse Pulse Pulse Resp BP BP 07/24/19 11:13 98.4 F 07/24/19 09:35 95 94 149/79 H 126/80 07/24/19 07:22 99.0 F 07/24/19 06:53 90 19 07/24/19 03:27 99.4 F 07/24/19 00:28 92 20 Pulse Ox Pulse Ox Pulse Ox 07/24/19 11:13 07/24/19 09:35 89 L 91 L 07/24/19 07:22 94 L 07/24/19 06:53 07/24/19 03:27 07/24/19 00:28 96 Weight Weight 156 lb 1.6 oz Most Recent Monitor Data Heart Rate from ECG 103 NIBP 140/89 NIBP BP-Mean 106 Respiration from ECG 41 SpO2 88 I&O: 07/23/19 07/24/19 07/25/19 06:59 06:59 06:59 Intake Total 250 Output Total 3600 Balance -3350 Result Diagrams: 07/24/19 05:22 07/24/19 05:22 Hospitalist ROS - Medication Medications: Active Medications Generic Name Dose Route Start Last Admin Trade Name Tazq PRN Reason Stop Dose Admin Acetaminophen 650 mg 07/23/19 14:13 07/23/19 14:34 Tylenol PO 650 mg Q6H PRN Administration Pain Albuterol/Ipratropium 3 ml 07/23/19 19:00 07/24/19 06:53 Duoneb NEB 3 ml [id number] AZIZA Administration Aspirin 325 mg 07/23/19 09:00 07/24/19 08:27 Aspirin PO Not Given DAILY AZIZA Carvedilol 12.5 mg 07/23/19 17:00 07/24/19 08:26 Coreg PO Not Given [facility] Clindamycin Phosphate/Dextrose 300 mg 07/23/19 23:59 07/24/19 05:35 Cleocin IVPB 07/27/19 23:59 300 mg Q6HR AZIZA Administration Enoxaparin Sodium 70 mg 07/23/19 17:00 07/24/19 05:34 Lovenox SC 70 mg 0500,1700 AZIZA Administration Furosemide 40 mg 07/24/19 09:00 07/24/19 09:31 Lasix SLOW IVP 40 mg DAILY AZIZA Administration Levofloxacin 750 mg/ Device 150 mls @ 100 mls/hr 07/23/19 20:00 07/23/19 20: 11 IVPB 07/26/19 21:29 150 mls Q24HR AZIZA Administration Lidocaine 1 patch 07/23/19 15:00 07/23/19 14:34 Lidoderm 5% Patch TD 1 patch 1500 AZIZA Administration Miscellaneous Medication 1 each 07/24/19 03:00 07/24/19 02:32 Lidocaine Patch Removal TOP Not Given 0300 AZIZA Potassium Chloride 40 meq 07/24/19 09:00 07/24/19 09:32 K-Dur PO 07/24/19 17:01 Not Given Q4H AZIZA Sodium Chloride 10 ml 07/24/19 09:00 07/24/19 09:32 Flush - Normal Saline IVF 10 ml Q12HR AZIZA Administration - Exam General Appearance: awake alert Eye: anicteric sclera ENT: normocephalic atraumatic Neck: supple, symmetric, no JVD Heart: RRR Respiratory: no wheezes, no ronchi, normal chest expansion Respiratory - other findings: Fair air entry bilaterally with some transmitted sound Gastrointestinal: soft, non-tender, non-distended, normal bowel sounds Gastrointestinal - other findings: Dmaon cath in place Extremities: no cyanosis, no edema Neurological: cranial nerve grossly intact, no focal deficits Psychiatric: A&O x 3 Hosp A/P (1) Acute respiratory failure with hypoxia Code(s): J96.01 - ACUTE RESPIRATORY FAILURE WITH HYPOXIA Status: Acute (2) Acute on chronic systolic (congestive) heart failure Code(s): I50.23 - ACUTE ON CHRONIC SYSTOLIC (CONGESTIVE) HEART FAILURE Status : Acute (3) Cardiomyopathy Code(s): I42.9 - CARDIOMYOPATHY, UNSPECIFIED Status: Acute (4) Elevated troponin Code(s): R79.89 - OTHER SPECIFIED ABNORMAL FINDINGS OF BLOOD CHEMISTRY Status : Acute (5) Acute urinary retention Code(s): R33.8 - OTHER RETENTION OF URINE Status: Acute (6) Oropharyngeal dysphagia Code(s): R13.12 - DYSPHAGIA, OROPHARYNGEAL PHASE Status: Acute (7) BPH (benign prostatic hyperplasia) Code(s): N40.0 - BENIGN PROSTATIC HYPERPLASIA WITHOUT LOWER URINRY TRACT SYMP Status: Chronic Qualifiers: Lower urinary tract symptom presence: symptoms absent Qualified Code(s): N40.0 - Benign prostatic hyperplasia without lower urinary tract symptoms (8) Aspiration pneumonia Code(s): J69.0 - PNEUMONITIS DUE TO INHALATION OF FOOD AND VOMIT Status: Suspected Qualifiers: Laterality: unspecified laterality Lung location: unspecified part of lung - Plan Start flomax and finasteride Continue oxygen supplementation and diuretic therapy. wean oxygen as tolerated. monitor electrolytes and replete as needed. NPO for now CLOTH DYER therapy following. For MBS
[2019-07-24] MEDS ORDERED: Tamsulosin HCl 0.4 MG CAP PO SCH (12:30)
[2019-07-24] MEDS: Lidocaine 5% Patch TD SCH (18:12)
[2019-07-24] MEDS: Acetaminophen 325 MG TAB PO PRN (23:49)
[2019-07-25] MEDS ORDERED: Ketorolac Tromethamine 30 MG/ML VIAL IVP PRN (03:28)
[2019-07-25] MEDS: Lidocaine Patch Removal 1 EACH TOP SCH (03:29)
[2019-07-25 04:15] LABS: #Eosinphils 0.1 thou/uL (0.0-0.7); #Lymphocytes 1.2 thou/uL (1.20-3.40); #Monocytes 0.9 thou/uL (0.11-0.59); #Neutrophils 13.9 thou/uL (1.40-6.50); %Basophils 0.1 % (0.0-1.0); %Eosinophils 0.6 % (0.0-10.0); %Lymphocytes 7.6 % (21.0-51.0); %Monocytes 5.3 % (0.0-10.0); %Neutrophils 86.4 % (42.0-75.0); Hemoglobin 14.1 g/dL (14.0-18.0); Mean Corpuscular HGB CONC 32.8 g/dL (32.0-36.0); Mean Corpuscular Hemoglobin 32.3 pg (27.0-31.0); Mean Corpuscular Volume 98.5 fL (78.0-98.0); Mean Platelet Volume 7.7 fL (7.4-10.4); Platelet Count 281 thou/uL (130-400); RBC Distribution Width 12.4 % (11.5-14.5); Red Blood Cell (RBC) Count 4.35 mill/uL (4.70-6.10); White Blood Cell (WBC) Count 16.1 thou/uL (4.8-10.8)
[2019-07-25 04:34] LABS: Anion Gap 13 mmol/L (10-20); BUN (Urea Nitrogen) 34 mg/dL (8.4-25.7); Calc. Creatinine Clearance 63 mL/min (70-130); Calcium 8.9 mg/dL (7.8-10.44); Carbon Dioxide 32 mmol/L (23-31); Chloride 104 mmol/L (98-107); Estimated GFR-MDRD 72; Glucose 116 mg/dL (83-110); Sodium 146 mmol/L (136-145)
[2019-07-25 04:44] LABS: Potassium 2.8 mmol/L (3.5-5.1)
[2019-07-25] MEDS: Enoxaparin Sodium 80 MG/0.8 ML SYRINGE SC SCH (05:12)
[2019-07-25] MEDS: Clindamycin/D5W 300 MG/50 ML BAG IVPB SCH ×3 (05:14→17:18)
[2019-07-25] MEDS ORDERED: Potassium Chloride 20 MEQ TAB PO SCH (05:15)
[2019-07-25] MEDS: Tamsulosin HCl 0.4 MG CAP PO SCH (09:07)
[2019-07-25] MEDS: Clopidogrel Bisulfate 75 MG TAB PO SCH (09:07)
[2019-07-25] MEDS: Carvedilol 6.25 MG TAB PO SCH ×2 (09:07→17:18)
[2019-07-25] MEDS: Furosemide 40 MG/4 ML VIAL SLOW IVP SCH (09:07)
[2019-07-25] MEDS: Potassium Chloride 20 MEQ TAB PO SCH ×3 (09:07→21:35)
[2019-07-25] MEDS: Aspirin 81 mg Enteric Coated Tablet PO SCH (09:08)
[2019-07-25] MEDS: Sacubitril 24.5 MG/Valsartan 25.5 MG TABLET PO SCH (09:08)
[2019-07-25] MEDS: Enoxaparin Sodium 40 MG/0.4 ML SYRINGE SC SCH (09:08)
--- NOTE | 2019-07-25 09:10 | CON ---
DATE OF CONSULTATION: 07/25/2019 SUBJECTIVE: Mr. Bedolla today is complaining of shortness of breath. He does appear slightly uncomfortable. No chest pain, pressure, or associated symptoms. Monitoring has been stable. He has lost almost net of 5 L over the last 2 days. Weights have been inaccurate. OBJECTIVE: VITAL SIGNS: Blood pressure 136/71, pulse 77, and temperature . LUNGS: Minimal crackles. HEART: Regular rate and rhythm. ABDOMEN: Soft, nontender, and nondistended. EXTREMITIES: No edema. PERTINENT LABORATORY DATA: Sodium 146, potassium 2.8, BUN 34, BNP of 1603. White blood cell count 16.1. IMPRESSION: 1. Acute on chronic systolic heart failure. 2. History of syncope. 3. Likely ischemic cardiomyopathy. 4. Dementia. RECOMMENDATIONS: 1. Continue conservative treatment. 2. Continue IV Lasix. 3. Discontinue b.i.d. Lovenox and substitute for Lovenox 40 mg q.a.m. 4. Change aspirin 325 q.a.m. to 81 q.a.m. 5. Continue beta-wander therapy and Entresto. 6. Supplement potassium. Job ID: [id number]
--- NOTE | 2019-07-25 09:14 | PRG ---
DATE OF SERVICE: 07/25/2019 SUBJECTIVE: This morning had difficulty breathing. OBJECTIVE: VITAL SIGNS: His temperature is 98, pulse 82_ respiratory rate is 20, saturations 94% on 3 L, blood pressure 136/71. CHEST: Minimal crackles, no wheezing. CARDIAC: Normal S1, S2. No gallops. ABDOMEN: No masses. LABORATORY DATA: White count [address]50[address]. Potassium 2.8, BUN is 34. IMPRESSION: Respiratory failure secondary to combination of congestive heart failure and aspiration, cardiomyopathy. Underlying dementia. PLAN: At this stage family is willing for the patient to have a pureed diet to see whether he can tolerate it. It is unclear if they want a PEG at this stage. Await input from palliative care. Consider switching to oral antibiotics in the next day or two, and follow. Job ID: [id number] [facility]
--- NOTE | 2019-07-25 09:22 | RAD ---
Portable frontal chest radiograph: 07/25/2019 COMPARISON: 07/22/2019 HISTORY: Congestive heart failure FINDINGS: There is mild pulmonary vascular congestion, improved when compared to the prior exam. Stab le prominence of the cardiac silhouette. No pneumothorax is seen. No large volume pleural effusion. There is mild groundglass opacity in the perihilar regions and in the right lung base, improved. Find ings suggest improving pulmonary edema. IMPRESSION: Findings suggesting improved pulmonary edema. Follow-up PA and lateral imaging of the [address] following treatment advised to document full resolution.
--- NOTE | 2019-07-25 12:19 | PDOC.HOSPP ---
- Subjective Encounter Date: 07/25/19 Encounter Time: 11:18 Subjective: 78 y/o male with recent acute cardiomyopathy with EF in 20's discharged from the hospital few days ago after treatment for acute metabolic encephalopathy, ANTOINE and pneumonia, now readmitted with worsening SOB. Found to have acute CHF and was started on BIPAP and lasix with improvement. Developed urinary retention hence Kingston catheter was placed. Feeling better. Off BIPAP. No fever. - Objective Vital Signs & Weight: Vital Signs (12 hours) Temp Pulse Pulse Pulse Resp BP BP 07/25/19 12:06 75 22 H 07/25/19 11:10 98.5 F 07/25/19 10:35 81 79 109/68 107/65 07/25/19 07:37 07/25/19 07:10 98.8 F 77 20 07/25/19 07:00 73 20 07/25/19 04:00 98.6 F BP Pulse Ox 07/25/19 12:06 07/25/19 11:10 07/25/19 10:35 07/25/19 07:37 94 L 07/25/19 07:10 136/71 100 07/25/19 07:00 07/25/19 04:00 98 Weight Weight 160 lb 1 oz Most Recent Monitor Data Heart Rate from ECG 72 NIBP 112/73 NIBP BP-Mean 86 Respiration from ECG 19 SpO2 97 I&O: 07/24/19 07/25/19 07/26/19 06:59 06:59 06:59 Intake Total 250 313 Output Total 3600 1650 Balance -9387 -0306 Result Diagrams: 07/25/19 03:56 07/25/19 03:56 Hospitalist ROS - Medication Medications: Active Medications Generic Name Dose Route Start Last Admin Trade Name Freq PRN Reason Stop Dose Admin Acetaminophen 650 mg 07/23/19 14:13 07/24/19 23:49 Tylenol PO 650 mg Q6H PRN Administration Pain Albuterol/Ipratropium 3 ml 07/23/19 19:00 07/25/19 12:06 Duoneb NEB 3 ml [id number] AZIZA Administration Aspirin 81 mg 07/25/19 09:00 07/25/19 09:08 Ecotrin PO 81 mg DAILY AZIZA Administration Carvedilol 12.5 mg 07/23/19 17:00 07/25/19 09:07 Coreg PO 12.5 mg BID-WM AZIZA Administration Clindamycin Phosphate/Dextrose 300 mg 07/23/19 23:59 07/25/19 05:14 Cleocin IVPB 07/27/19 23:59 300 mg Q6HR AZIZA Administration Clopidogrel Bisulfate 75 mg 07/25/19 09:00 07/25/19 09:07 Plavix PO 75 mg DAILY AZIZA Administration Enoxaparin Sodium 40 mg 07/25/19 09:00 07/25/19 09:08 Lovenox SC 40 mg 0900 AZIZA Administration Furosemide 40 mg 07/24/19 09:00 07/25/19 09:07 Lasix SLOW IVP 40 mg DAILY AZIZA Administration Levofloxacin 750 mg/ Device 150 mls @ 100 mls/hr 07/23/19 20:00 07/24/19 20: 58 IVPB 07/26/19 21:29 150 mls Q24HR AZIZA Administration Ketorolac Tromethamine 30 mg 07/25/19 03:28 07/25/19 03:35 Toradol IVP 07/30/19 03:29 30 mg Q6H PRN Administration Pain Lidocaine 1 patch 07/23/19 15:00 07/24/19 18:12 Lidoderm 5% Patch TD Not Given 1500 [facility] Miscellaneous Medication 1 each 07/24/19 03:00 07/25/19 03:29 Lidocaine Patch Removal TOP Not Given 0300 [facility] Potassium Chloride 40 meq 07/25/19 09:00 07/25/19 09:07 K-Dur PO 40 meq TID AZIZA Administration Sacubitril/Valsartan 1 tab 07/25/19 09:00 07/25/19 09:08 Entresto 24.5 Mg-25.5 Mg Tablet PO 1 tab BID AZIZA Administration Sodium Chloride 10 ml 07/24/19 09:00 07/25/19 09:09 Flush - Normal Saline IVF 10 ml Q12HR AZIZA Administration Tamsulosin HCl 0.4 mg 07/25/19 09:00 07/25/19 09:07 Flomax PO 0.4 mg DAILY AZIZA Administration - Exam General Appearance: awake alert Eye: anicteric sclera ENT: normocephalic atraumatic, moist mucosa Neck: supple, symmetric, no JVD Heart: RRR Respiratory: no wheezes, no ronchi, normal chest expansion Respiratory - other findings: fair air entry with few transmitted sound Gastrointestinal: soft, non-tender, non-distended, normal bowel sounds Extremities: no cyanosis, no edema Neurological: cranial nerve grossly intact, no focal deficits Neurological - other findings: mild memeory lapses noted Hosp A/P (1) Acute respiratory failure with hypoxia Code(s): J96.01 - ACUTE RESPIRATORY FAILURE WITH HYPOXIA Status: Acute (2) Acute on chronic systolic (congestive) heart failure Code(s): I50.23 - ACUTE ON CHRONIC SYSTOLIC (CONGESTIVE) HEART FAILURE Status : Acute (3) Cardiomyopathy Code(s): I42.9 - CARDIOMYOPATHY, UNSPECIFIED Status: Acute (4) Elevated troponin Code(s): R79.89 - OTHER SPECIFIED ABNORMAL FINDINGS OF BLOOD CHEMISTRY Status : Acute (5) Acute urinary retention Code(s): R33.8 - OTHER RETENTION OF URINE Status: Acute (6) Oropharyngeal dysphagia Code(s): R13.12 - DYSPHAGIA, OROPHARYNGEAL PHASE Status: Acute (7) BPH (benign prostatic hyperplasia) Code(s): N40.0 - BENIGN PROSTATIC HYPERPLASIA WITHOUT LOWER URINRY TRACT SYMP Status: Chronic Qualifiers: Lower urinary tract symptom presence: symptoms absent Qualified Code(s): N40.0 - Benign prostatic hyperplasia without lower urinary tract symptoms (8) Aspiration pneumonia Code(s): J69.0 - PNEUMONITIS DUE TO INHALATION OF FOOD AND VOMIT Status: Suspected Qualifiers: Laterality: unspecified laterality Lung location: unspecified part of lung - Plan Replete serum potassium and start oral supplementation given continue diuretic. spironolactone contemplated. Continue flomax and finasteride Continue oxygen supplementation and wean oxygen as tolerated. monitor electrolytes and replete as needed. Appreciate Pulmonary and Cardiology input.
[2019-07-25] MEDS: Lidocaine 5% Patch TD SCH (13:58)
[2019-07-25] MEDS: Acetaminophen 325 MG TAB PO PRN (21:35)
[2019-07-26] MEDS: Clindamycin/D5W 300 MG/50 ML BAG IVPB SCH ×2 (00:20→05:59)
[2019-07-26] MEDS: Acetaminophen 325 MG TAB PO PRN ×2 (03:44→08:58)
[2019-07-26] MEDS: Sacubitril 24.5 MG/Valsartan 25.5 MG TABLET PO SCH (04:33)
[2019-07-26] MEDS: Lidocaine Patch Removal 1 EACH TOP SCH (05:21)
[2019-07-26 06:59] LABS: Anion Gap 16 mmol/L (10-20); BUN (Urea Nitrogen) 36 mg/dL (8.4-25.7); Calc. Creatinine Clearance 56 mL/min (70-130); Calcium 8.9 mg/dL (7.8-10.44); Carbon Dioxide 26 mmol/L (23-31); Chloride 111 mmol/L (98-107); Estimated GFR-MDRD 66; Glucose 130 mg/dL (83-110); Potassium 4.7 mmol/L (3.5-5.1); Sodium 148 mmol/L (136-145)
[2019-07-26 07:15] LABS: #Eosinphils 0.3 thou/uL (0.0-0.7); #Lymphocytes 1.7 thou/uL (1.20-3.40); #Monocytes 0.9 thou/uL (0.11-0.59); #Neutrophils 13.5 thou/uL (1.40-6.50); %Basophils 0.1 % (0.0-1.0); %Eosinophils 1.8 % (0.0-10.0); %Lymphocytes 10.4 % (21.0-51.0); %Monocytes 5.3 % (0.0-10.0); %Neutrophils 82.4 % (42.0-75.0); Hemoglobin 16.2 g/dL (14.0-18.0); Mean Corpuscular HGB CONC 32.7 g/dL (32.0-36.0); Mean Corpuscular Hemoglobin 32.2 pg (27.0-31.0); Mean Corpuscular Volume 98.5 fL (78.0-98.0); Platelet Count 274 thou/uL (130-400); RBC Distribution Width 12.8 % (11.5-14.5); Red Blood Cell (RBC) Count 5.02 mill/uL (4.70-6.10); White Blood Cell (WBC) Count 16.4 thou/uL (4.8-10.8)
[2019-07-26] MEDS: Furosemide 40 MG/4 ML VIAL SLOW IVP SCH (08:07)
[2019-07-26] MEDS: Carvedilol 6.25 MG TAB PO SCH ×2 (08:08→17:14)
[2019-07-26] MEDS: Clopidogrel Bisulfate 75 MG TAB PO SCH (08:09)
[2019-07-26] MEDS: Tamsulosin HCl 0.4 MG CAP PO SCH (08:09)
[2019-07-26] MEDS: Aspirin 81 mg Enteric Coated Tablet PO SCH (08:09)
[2019-07-26] MEDS: Potassium Chloride 20 MEQ TAB PO SCH (08:09)
[2019-07-26] MEDS: Finasteride 5 MG TAB PO SCH (08:09)
[2019-07-26] MEDS: Enoxaparin Sodium 40 MG/0.4 ML SYRINGE SC SCH (08:10)
[2019-07-26 08:12] LABS: Band 3 % (5-11); Eosinophils 2 % (0-10); Lymphocytes 11 % (21-51); MDiff Complete? YES; Monocytes 3 % (0-10); Neutrophil 79 % (42-75); RBC Morphology Normal; Reactive Lymphocytes 2 % (0-10)
--- NOTE | 2019-07-26 08:42 | PRG ---
DATE OF SERVICE: 07/26/2019 SUBJECTIVE: This morning, he is better, less encephalopathic. Less short of breath. X-ray still shows bilateral infiltrates, but better. Not coughing any more blood. OBJECTIVE: VITAL SIGNS: Saturations are 97% on 3 L, temperature 97, blood pressure 134/95 and respirations 18. CHEST: No wheezing or crackles. CARDIAC: Normal S1 and S2. No gallops. ABDOMEN: No masses. LABORATORY DATA: White count 21296, H and H is 16 and 49. Lytes are normal. ASSESSMENT AND PLAN: Congestive heart failure, hemoptysis, possibly aspiration and dysphagia. Continue supportive care and PT. Looks like he is improved, can probably transfer back to the rehab. Job ID: [id number]
--- NOTE | 2019-07-26 08:45 | PRG ---
DATE OF SERVICE: 07/26/2019 SUBJECTIVE: Mr. Bedolla is doing well. No current complaints of chest pain or pressure. His main complaint is back pain. He does have a history of scoliosis. OBJECTIVE: VITAL SIGNS: Blood pressure 134/95, pulse 97 and temperature afebrile. LUNGS: Clear to auscultation. HEART: Regular rate and rhythm. ABDOMEN: Soft, nontender, nondistended. EXTREMITIES: No edema. PERTINENT LABORATORY DATA: Hemoglobin 16.2, creatinine 1.08, potassium 4.7. IMPRESSION: 1. Likely ischemic cardiomyopathy. 2. Previous metabolic encephalopathy likely from dysrhythmia. 3. Underlying dementia. RECOMMENDATIONS: 1. Continue heart failure regime with aspirin 81 q.a.m., carvedilol 12.5 mg one p.o. b.i.d., Plavix 75 q.a.m., and Entresto 24.5/25.5 mg b.i.d. 2. Restrict IV fluids and normal saline. 3. Add amiodarone 400 mg one p.o. q.a.m. x1 month, then decrease to 200 mg one p.o. q.a.m. given previous history of VT. Otherwise, I have no further recommendations. We will make medication adjustments. Plan is to follow up as an outpatient. The patient may need placement. Job ID: [id number]
[2019-07-26] MEDS: Amiodarone 200 MG TAB PO SCH (08:57)
--- NOTE | 2019-07-26 12:45 | RAD ---
PA AND LATERAL VIEWS CHEST: Date: 07/26/19 HISTORY: Aspiration. FINDINGS: Comparison made with exam of previous day. The heart is enlarged. The aorta is tortuous. No lobar consolidation, pneumothoraces, omaira pulmonary edema, or pleural effusions are seen. There are degenerative changes in the spine. IMPRESSION: No acute process. POS: DEBORA
[2019-07-26] MEDS: Lidocaine 5% Patch TD SCH (14:05)
[2019-07-26] MEDS: Acetaminophen 500 MG TAB PO PRN ×2 (14:05→17:13)
--- NOTE | 2019-07-26 14:13 | PDOC.HOSPP ---
- Subjective Encounter Date: 07/26/19 Encounter Time: 11:01 Subjective: 78 y/o male with recent acute cardiomyopathy with EF in 20's discharged from the hospital few days ago after treatment for acute metabolic encephalopathy, ANTOINE and pneumonia, now readmitted with worsening SOB. Found to have acute CHF and was started on BIPAP and lasix with improvement. Developed urinary retention hence Kingston catheter was placed. Off BIPAP and oxygen is weaned. Back on dysphagic diet. Complains of SOB and ill feeling but oxygen saturation is good with out tachypnea. No fever. Hemoptysis has subsided. - Objective Vital Signs & Weight: Vital Signs (12 hours) Temp Pulse Pulse Pulse Resp BP BP 07/26/19 13:30 74 18 07/26/19 11:06 97.0 F L 07/26/19 09:23 86 84 126/86 07/26/19 08:08 134/95 H 07/26/19 08:00 07/26/19 07:45 07/26/19 07:32 97.4 F L 07/26/19 04:00 98.0 F BP Pulse Ox Pulse Ox Pulse Ox 07/26/19 13:30 95 07/26/19 11:06 07/26/19 09:23 137/92 H 95 98 07/26/19 08:08 07/26/19 08:00 97 07/26/19 07:45 97 07/26/19 07:32 07/26/19 04:00 Weight Weight 152 lb 7 oz Most Recent Monitor Data Heart Rate from ECG 75 NIBP 97/64 NIBP BP-Mean 75 Respiration from ECG 28 SpO2 99 I&O: 07/25/19 07/26/19 07/27/19 06:59 06:59 06:59 Intake Total 313 452 Output Total 6590 8365 Balance -5877 823 Result Diagrams: 07/26/19 06:26 07/26/19 06:25 Hospitalist ROS - Medication Medications: Active Medications Generic Name Dose Route Start Last Admin Trade Name Freq PRN Reason Stop Dose Admin Albuterol/Ipratropium 3 ml 07/23/19 19:00 07/26/19 13:30 Duoneb NEB 3 ml [id number] AZIZA Administration Amiodarone HCl 400 mg 07/26/19 09:00 07/26/19 08:57 Cordarone PO 08/24/19 09:01 400 mg DAILY AZIZA Administration Aspirin 81 mg 07/25/19 09:00 07/26/19 08:09 Ecotrin PO 81 mg DAILY AZIZA Administration Carvedilol 12.5 mg 07/23/19 17:00 07/26/19 08:08 Coreg PO 12.5 mg BID-WM AZIZA Administration Clopidogrel Bisulfate 75 mg 07/25/19 09:00 07/26/19 08:09 Plavix PO 75 mg DAILY AZIZA Administration Enoxaparin Sodium 40 mg 07/25/19 09:00 07/26/19 08:10 Lovenox SC 40 mg 0900 AZIZA Administration Finasteride 5 mg 07/26/19 09:00 07/26/19 08:09 Proscar PO 5 mg DAILY AZIZA Administration Furosemide 40 mg 07/24/19 09:00 07/26/19 08:07 Lasix SLOW IVP 40 mg DAILY AZIZA Administration Lidocaine 1 patch 07/23/19 15:00 07/25/19 13:58 Lidoderm 5% Patch TD 1 patch 1500 AZIZA Administration Miscellaneous Medication 1 each 07/24/19 03:00 07/26/19 05:21 Lidocaine Patch Removal TOP Not Given 0300 [facility] Sacubitril/Valsartan 1 tab 07/25/19 21:00 07/26/19 08:09 Entresto 24 Mg-26 Mg Tablet PO 1 tab BID AZIZA Administration Sodium Chloride 10 ml 07/24/19 09:00 07/26/19 08:10 Flush - Normal Saline IVF 10 ml Q12HR AZIZA Administration Tamsulosin HCl 0.4 mg 07/25/19 09:00 07/26/19 08:09 Flomax PO 0.4 mg DAILY AZIZA Administration - Exam General Appearance: awake alert Eye: anicteric sclera ENT: normocephalic atraumatic Neck: supple, symmetric Heart: RRR Respiratory: no wheezes, no ronchi, normal chest expansion Respiratory - other findings: fair air entry bilaterally Gastrointestinal: soft, non-tender, non-distended, normal bowel sounds Extremities: no cyanosis, no edema Neurological: cranial nerve grossly intact, no focal deficits Psychiatric: normal affect, A&O x 3 Psychiatric - other findings: some confusional Hosp A/P (1) Acute respiratory failure with hypoxia Code(s): J96.01 - ACUTE RESPIRATORY FAILURE WITH HYPOXIA Status: Acute (2) Acute on chronic systolic (congestive) heart failure Code(s): I50.23 - ACUTE ON CHRONIC SYSTOLIC (CONGESTIVE) HEART FAILURE Status : Acute (3) Cardiomyopathy Code(s): I42.9 - CARDIOMYOPATHY, UNSPECIFIED Status: Acute (4) Elevated troponin Code(s): R79.89 - OTHER SPECIFIED ABNORMAL FINDINGS OF BLOOD CHEMISTRY Status : Acute (5) Acute urinary retention Code(s): R33.8 - OTHER RETENTION OF URINE Status: Acute (6) Oropharyngeal dysphagia Code(s): R13.12 - DYSPHAGIA, OROPHARYNGEAL PHASE Status: Acute (7) BPH (benign prostatic hyperplasia) Code(s): N40.0 - BENIGN PROSTATIC HYPERPLASIA WITHOUT LOWER URINRY TRACT SYMP Status: Chronic Qualifiers: Lower urinary tract symptom presence: symptoms absent Qualified Code(s): N40.0 - Benign prostatic hyperplasia without lower urinary tract symptoms (8) Aspiration pneumonia Code(s): J69.0 - PNEUMONITIS DUE TO INHALATION OF FOOD AND VOMIT Status: Suspected Qualifiers: Laterality: unspecified laterality Lung location: unspecified part of lung (9) Ventricular tachyarrhythmia Code(s): I47.2 - VENTRICULAR TACHYCARDIA Status: Acute (10) Dementia Code(s): F03.90 - UNSPECIFIED DEMENTIA WITHOUT BEHAVIORAL DISTURBANCE Status: Acute - Plan Continue entresto and coreg Get repeat CXR to rule out aspiration. Continue flomax and finasteride. Discontinue potassium supplementation Continue oxygen supplementation and wean oxygen as tolerated. monitor electrolytes and replete as needed. Appreciate Pulmonary and Cardiology input.
[2019-07-26] MEDS: Melatonin 3 MG TAB PO PRN (21:26)
[2019-07-27] MEDS ORDERED: Lorazepam 2 MG/ML VIAL SLOW IVP PRN (00:21)
[2019-07-27] MEDS: Lidocaine Patch Removal 1 EACH TOP SCH (02:22)
[2019-07-27] MEDS ORDERED: diphenhydrAMINE 50 MG/ML VIAL IVP SCH (02:30)
[2019-07-27 04:59] LABS: #Eosinphils 0.3 thou/uL (0.0-0.7); #Lymphocytes 1.6 thou/uL (1.20-3.40); #Monocytes 0.9 thou/uL (0.11-0.59); #Neutrophils 14.5 thou/uL (1.40-6.50); %Basophils 0.1 % (0.0-1.0); %Lymphocytes 9.3 % (21.0-51.0); %Neutrophils 83.7 % (42.0-75.0); Hemoglobin 15.2 g/dL (14.0-18.0); Mean Corpuscular HGB CONC 32.2 g/dL (32.0-36.0); Mean Corpuscular Hemoglobin 32.2 pg (27.0-31.0); Mean Corpuscular Volume 99.8 fL (78.0-98.0); Mean Platelet Volume 7.7 fL (7.4-10.4); Platelet Count 333 thou/uL (130-400); RBC Distribution Width 12.6 % (11.5-14.5); Red Blood Cell (RBC) Count 4.73 mill/uL (4.70-6.10); White Blood Cell (WBC) Count 17.3 thou/uL (4.8-10.8)
[2019-07-27 05:17] LABS: Anion Gap 16 mmol/L (10-20); BUN (Urea Nitrogen) 46 mg/dL (8.4-25.7); Calc. Creatinine Clearance 49 mL/min (70-130); Calcium 8.6 mg/dL (7.8-10.44); Carbon Dioxide 27 mmol/L (23-31); Chloride 113 mmol/L (98-107); Estimated GFR-MDRD 57; Glucose 122 mg/dL (83-110); Potassium 3.8 mmol/L (3.5-5.1); Sodium 152 mmol/L (136-145)
[2019-07-27] MEDS: Clopidogrel Bisulfate 75 MG TAB PO SCH (08:13)
[2019-07-27] MEDS: Aspirin 81 mg Enteric Coated Tablet PO SCH (08:14)
[2019-07-27] MEDS: Tamsulosin HCl 0.4 MG CAP PO SCH (08:14)
[2019-07-27] MEDS: Amiodarone 200 MG TAB PO SCH (08:14)
[2019-07-27] MEDS: Polyethylene Glycol 3350 17 GM Packet PO SCH (08:14)
[2019-07-27] MEDS: Finasteride 5 MG TAB PO SCH (08:14)
[2019-07-27] MEDS: Carvedilol 6.25 MG TAB PO SCH ×2 (08:14→16:17)
[2019-07-27] MEDS: Dextrose 5% in Water 1,000 ML IV SCH ×2 (08:15→16:27)
[2019-07-27] MEDS: Enoxaparin Sodium 40 MG/0.4 ML SYRINGE SC SCH (08:15)
--- NOTE | 2019-07-27 09:04 | PRG ---
DATE OF SERVICE: 07/27/2019 OBJECTIVE: VITAL SIGNS: Temperature 97, blood pressure 134/95, sats 97% on 1 L, respiratory rate 18. GENERAL: He is awake, alert, responsive, sitting on the side of the bed eating his breakfast. Negative balance. CHEST: Crackles. CARDIAC: Normal S1 and S2. No gallops. ABDOMEN: No masses. LABORATORY DATA: Sodium is 152, elevated. White count 17,000. IMPRESSION: Congestive heart failure, encephalopathy, dementia, dysphagia, cardiac arrhythmias. PLAN: He is much improved. He can probably be transferred back to the rehab any time. Job ID: [id number]
--- NOTE | 2019-07-27 11:20 | PDOC.HOSPP ---
- Subjective Encounter Date: 07/27/19 Encounter Time: 11:18 Subjective: 78 y/o male with recent acute cardiomyopathy with EF in 20's discharged from the hospital few days ago after treatment for acute metabolic encephalopathy, ANTOINE and pneumonia, now readmitted with worsening SOB. Found to have acute CHF and was started on BIPAP and lasix with improvement. Developed urinary retention hence [place] catheter was placed. Off BIPAP and oxygen is weaned. Back on dysphagic diet. Was agitated and aggressive last night. calmer this am. No fever. Hemoptysis has subsided. - Objective Vital Signs & Weight: Vital Signs (12 hours) Temp Pulse Resp BP Pulse Ox 07/27/19 08:14 134/95 H 07/27/19 08:00 96 07/27/19 07:45 97.7 F 07/27/19 07:34 97 07/27/19 07:32 87 20 97 07/27/19 03:34 97.4 F L 07/27/19 02:55 96 07/27/19 00:36 77 27 H 96 Weight Weight 154 lb 14.4 oz Most Recent Monitor Data Heart Rate from ECG 73 NIBP 111/73 NIBP BP-Mean 85 Respiration from ECG 17 SpO2 90 I&O: 07/26/19 07/27/19 07/28/19 06:59 06:59 06:59 Intake Total 452 790 Output Total 1275 940 Balance -823 -150 Result Diagrams: 07/27/19 04:41 07/27/19 04:41 Hospitalist ROS - Medication Medications: Active Medications Generic Name Dose Route Start Last Admin Trade Name Freq PRN Reason Stop Dose Admin Acetaminophen 1,000 mg 07/26/19 11:20 07/26/19 17:13 Tylenol PO 1,000 mg Q6H PRN Administration Headache/Fever or Pain Albuterol/Ipratropium 3 ml 07/23/19 19:00 07/27/19 07:32 Duoneb NEB 3 ml [id number] AZIZA Administration Amiodarone HCl 400 mg 07/26/19 09:00 07/27/19 08:14 Cordarone PO 08/24/19 09:01 400 mg DAILY AZIZA Administration Aspirin 81 mg 07/25/19 09:00 07/27/19 08:14 Ecotrin PO 81 mg DAILY AZIZA Administration Carvedilol 12.5 mg 07/23/19 17:00 07/27/19 08:14 Coreg PO 12.5 mg BID-WM AZIZA Administration Clopidogrel Bisulfate 75 mg 07/25/19 09:00 07/27/19 08:13 Plavix PO 75 mg DAILY AZIZA Administration Enoxaparin Sodium 40 mg 07/25/19 09:00 07/27/19 08:15 Lovenox SC 40 mg 0900 AZIZA Administration Finasteride 5 mg 07/26/19 09:00 07/27/19 08:14 Proscar PO 5 mg DAILY AZIZA Administration Dextrose/Water 1,000 mls @ 100 mls/hr 07/27/19 08:00 07/27/19 08:15 D5w IV 1,000 mls .Q10H AZIZA Administration Levofloxacin 500 mg 07/27/19 06:00 07/27/19 05:56 Levaquin PO 07/30/19 06:01 500 mg 0600 AZIZA Administration Lidocaine 1 patch 07/23/19 15:00 07/26/19 14:05 Lidoderm 5% Patch TD 1 patch 1500 AZIZA Administration Lorazepam 0.5 mg 07/27/19 00:21 07/27/19 01:17 Ativan SLOW IVP 0.5 mg Q8H PRN Administration Anxiety/Agitation Melatonin 6 mg 07/26/19 18:38 07/26/19 21:26 Melatonin PO 6 mg HSPRN PRN Administration Insomnia Miscellaneous Medication 1 each 07/24/19 03:00 07/27/19 02:22 Lidocaine Patch Removal TOP 1 each 0300 AZIZA Administration Polyethylene Glycol 17 gm 07/27/19 09:00 07/27/19 08:14 Miralax PO 17 gm DAILY AZIZA Administration Sacubitril/Valsartan 1 tab 07/25/19 21:00 07/27/19 08:14 Entresto 24 Mg-26 Mg Tablet PO 1 tab BID AZIZA Administration Sodium Chloride 10 ml 07/24/19 09:00 07/27/19 08:15 Flush - Normal Saline IVF 10 ml Q12HR AZIZA Administration Tamsulosin HCl 0.4 mg 07/25/19 09:00 07/27/19 08:14 Flomax PO 0.4 mg DAILY AZIZA Administration - Exam General Appearance: awake alert Eye: anicteric sclera ENT: normocephalic atraumatic Neck: supple, symmetric, no JVD Heart: RRR Respiratory: no wheezes, no ronchi, normal chest expansion Gastrointestinal: soft, non-tender, non-distended, normal bowel sounds Extremities: no cyanosis, no edema Neurological: cranial nerve grossly intact, no focal deficits Neurological - other findings: oriented x 3. memory lapses noted Hosp A/P (1) Hypernatremia Code(s): E87.0 - HYPEROSMOLALITY AND HYPERNATREMIA Status: Acute (2) Acute metabolic encephalopathy Code(s): G93.41 - METABOLIC ENCEPHALOPATHY Status: Resolved (3) Acute respiratory failure with hypoxia Code(s): J96.01 - ACUTE RESPIRATORY FAILURE WITH HYPOXIA Status: Acute (4) Acute on chronic systolic (congestive) heart failure Code(s): I50.23 - ACUTE ON CHRONIC SYSTOLIC (CONGESTIVE) HEART FAILURE Status : Acute (5) Cardiomyopathy Code(s): I42.9 - CARDIOMYOPATHY, UNSPECIFIED Status: Acute (6) Elevated troponin Code(s): R79.89 - OTHER SPECIFIED ABNORMAL FINDINGS OF BLOOD CHEMISTRY Status : Acute (7) Acute urinary retention Code(s): R33.8 - OTHER RETENTION OF URINE Status: Acute (8) Oropharyngeal dysphagia Code(s): R13.12 - DYSPHAGIA, OROPHARYNGEAL PHASE Status: Acute (9) BPH (benign prostatic hyperplasia) Code(s): N40.0 - BENIGN PROSTATIC HYPERPLASIA WITHOUT LOWER URINRY TRACT SYMP Status: Chronic Qualifiers: Lower urinary tract symptom presence: symptoms absent Qualified Code(s): N40.0 - Benign prostatic hyperplasia without lower urinary tract symptoms (10) Aspiration pneumonia Code(s): J69.0 - PNEUMONITIS DUE TO INHALATION OF FOOD AND VOMIT Status: Suspected Qualifiers: Laterality: unspecified laterality Lung location: unspecified part of lung (11) Ventricular tachyarrhythmia Code(s): I47.2 - VENTRICULAR TACHYCARDIA Status: Acute (12) Dementia Code(s): F03.90 - UNSPECIFIED DEMENTIA WITHOUT BEHAVIORAL DISTURBANCE Status: Acute (13) Leucocytosis Code(s): D72.829 - ELEVATED WHITE BLOOD CELL COUNT, UNSPECIFIED Status: Acute - Plan Start D5W at 100 cc/hr. Get repeat BMP at 1400. DC lasix. Start PRN Geodon for agitation Get Procalcitonin given persistent leucocytosis. antibiotics are off. Continue entresto and coreg Continue flomax and finasteride. Continue oxygen supplementation and wean oxygen as tolerated. monitor electrolytes and replete as needed. Appreciate Pulmonary and Cardiology input. Transfer to tele
[2019-07-27] MEDS: Lidocaine 5% Patch TD SCH (14:21)
[2019-07-27 14:39] LABS: Anion Gap 14 mmol/L (10-20); BUN (Urea Nitrogen) 48 mg/dL (8.4-25.7); Calc. Creatinine Clearance 47 mL/min (70-130); Calcium 9.3 mg/dL (7.8-10.44); Carbon Dioxide 27 mmol/L (23-31); Chloride 111 mmol/L (98-107); Estimated GFR-MDRD 53; Glucose 136 mg/dL (83-110); Potassium 3.9 mmol/L (3.5-5.1); Sodium 148 mmol/L (136-145)
[2019-07-27] MEDS ORDERED: Sodium Chloride 0.9% 500 ML IV SCH (16:45)
[2019-07-27] MEDS ORDERED: Ziprasidone 20 MG VIAL IM PRN (16:46)
[2019-07-28] MEDS: Melatonin 3 MG TAB PO PRN (01:01)
[2019-07-28] MEDS: Lidocaine Patch Removal 1 EACH TOP SCH (04:03)
[2019-07-28 04:52] LABS: #Basophils 0.1 thou/uL (0.0-0.2); #Eosinphils 0.4 thou/uL (0.0-0.7); #Lymphocytes 1.3 thou/uL (1.20-3.40); #Monocytes 0.7 thou/uL (0.11-0.59); #Neutrophils 13.2 thou/uL (1.40-6.50); %Basophils 0.8 % (0.0-1.0); %Eosinophils 2.4 % (0.0-10.0); %Lymphocytes 8.4 % (21.0-51.0); %Monocytes 4.5 % (0.0-10.0); %Neutrophils 83.9 % (42.0-75.0); Hemoglobin 14.1 g/dL (14.0-18.0); Mean Corpuscular HGB CONC 32.2 g/dL (32.0-36.0); Mean Corpuscular Volume 99.5 fL (78.0-98.0); Mean Platelet Volume 7.5 fL (7.4-10.4); Platelet Count 289 thou/uL (130-400); RBC Distribution Width 12.5 % (11.5-14.5); Red Blood Cell (RBC) Count 4.39 mill/uL (4.70-6.10); White Blood Cell (WBC) Count 15.7 thou/uL (4.8-10.8)
[2019-07-28 05:10] LABS: Anion Gap 10 mmol/L (10-20); BUN (Urea Nitrogen) 38 mg/dL (8.4-25.7); Calc. Creatinine Clearance 52 mL/min (70-130); Calcium 8.4 mg/dL (7.8-10.44); Carbon Dioxide 31 mmol/L (23-31); Chloride 107 mmol/L (98-107); Estimated GFR-MDRD 59; Glucose 138 mg/dL (83-110); Potassium 3.3 mmol/L (3.5-5.1); Sodium 145 mmol/L (136-145)
[2019-07-28] MEDS: Dextrose 5% in Water 1,000 ML IV SCH (06:45)
[2019-07-28] MEDS ORDERED: Potassium Chloride 20 MEQ TAB PO SCH (07:45)
[2019-07-28] MEDS: Polyethylene Glycol 3350 17 GM Packet PO SCH (09:16)
[2019-07-28] MEDS: Carvedilol 6.25 MG TAB PO SCH (09:17)
[2019-07-28] MEDS: Clopidogrel Bisulfate 75 MG TAB PO SCH (09:17)
[2019-07-28] MEDS: Finasteride 5 MG TAB PO SCH (09:17)
[2019-07-28] MEDS: Aspirin 81 mg Enteric Coated Tablet PO SCH (09:17)
[2019-07-28] MEDS: Tamsulosin HCl 0.4 MG CAP PO SCH (09:17)
[2019-07-28] MEDS: Amiodarone 200 MG TAB PO SCH (09:18)
[2019-07-28] MEDS: Enoxaparin Sodium 40 MG/0.4 ML SYRINGE SC SCH (09:18)
--- NOTE | 2019-07-28 09:58 | PRG ---
DATE OF SERVICE: 07/28/2019 SUBJECTIVE: This morning, he is less short of breath. OBJECTIVE: VITAL SIGNS: Temperature 97, pulse 68, sats 99% on 2 L, respiratory rate 18, blood pressure 141/80. CHEST: No wheezing, crackles. CARDIAC: Normal S1 and S2. No gallops. ABDOMEN: Soft. LABORATORY DATA: Creatinine 1.19, BUN 38. White count 15,000. ASSESSMENT: Respiratory failure, congestive heart failure, dementia, mild azotemia. He is ready to be discharged back to the rehab. Continue supportive care, PT. Job ID: [id number]
[2019-07-28] MEDS ORDERED: Sodium Chloride 0.9% 500 ML IV SCH (11:30)
--- NOTE | 2019-07-28 12:45 | PDOC.HOSPP ---
- Subjective Encounter Date: 07/28/19 Encounter Time: 12:42 Subjective: 78 y/o male with recent acute cardiomyopathy with EF in 20's discharged from the hospital few days ago after treatment for acute metabolic encephalopathy, ANTOINE and pneumonia, now readmitted with worsening SOB. Found to have acute CHF and was started on BIPAP and lasix with improvement. Developed urinary retention hence Kingston catheter was placed. Off BIPAP and oxygen is weaned. Back on dysphagic diet. Was agitated and aggressive again last night and recieved geodon at 3am. Was sleeping earlier and later woke up[ appropriate. Stood up with PT and was noted to be hypotensive. Had recieved am meds earlier. Later developed worsening hypotension associated with dizziness and was given 500 cc of NS bolus with improvement in BP. - Objective Vital Signs & Weight: Vital Signs (12 hours) Temp Pulse Resp BP BP Pulse Ox 07/28/19 09:14 97.5 F L 68 18 141/80 H 99 07/28/19 06:59 94 L 07/28/19 06:56 69 16 93 L 07/28/19 04:00 97.4 F L 69 18 145/74 H 96 Weight Weight 150 lb 14.4 oz Most Recent Monitor Data Heart Rate from ECG 69 NIBP 124/73 NIBP BP-Mean 90 Respiration from ECG 16 SpO2 95 I&O: 07/27/19 07/28/19 07/29/19 06:59 06:59 06:59 Intake Total 790 2603 Output Total 940 900 Balance -150 1703 Result Diagrams: 07/28/19 04:40 07/28/19 04:40 Hospitalist ROS - Medication Medications: Active Medications Generic Name Dose Route Start Last Admin Trade Name Freq PRN Reason Stop Dose Admin Acetaminophen 1,000 mg 07/26/19 11:20 07/26/19 17:13 Tylenol PO 1,000 mg Q6H PRN Administration Headache/Fever or Pain Albuterol/Ipratropium 3 ml 07/23/19 19:00 07/28/19 06:56 Duoneb NEB 3 ml [id number] AZIZA Administration Amiodarone HCl 400 mg 07/26/19 09:00 07/28/19 09:18 Cordarone PO 08/24/19 09:01 400 mg DAILY AZIZA Administration Aspirin 81 mg 07/25/19 09:00 07/28/19 09:17 Ecotrin PO 81 mg DAILY AZIZA Administration Carvedilol 12.5 mg 07/23/19 17:00 07/28/19 09:17 Coreg PO 12.5 mg BID-WM AZIZA Administration Clopidogrel Bisulfate 75 mg 07/25/19 09:00 07/28/19 09:17 Plavix PO 75 mg DAILY AZIZA Administration Enoxaparin Sodium 40 mg 07/25/19 09:00 07/28/19 09:18 Lovenox SC 40 mg 0900 AZIZA Administration Finasteride 5 mg 07/26/19 09:00 07/28/19 09:17 Proscar PO 5 mg DAILY AZIZA Administration Levofloxacin 500 mg 07/27/19 06:00 07/28/19 09:17 Levaquin PO 07/30/19 06:01 500 mg 0600 AZIZA Administration Lidocaine 1 patch 07/23/19 15:00 07/27/19 14:21 Lidoderm 5% Patch TD 1 patch 1500 AZIZA Administration Lorazepam 0.5 mg 07/27/19 00:21 07/27/19 01:17 Ativan SLOW IVP 0.5 mg Q8H PRN Administration Anxiety/Agitation Melatonin 6 mg 07/26/19 18:38 07/28/19 01:01 Melatonin PO 6 mg HSPRN PRN Administration Insomnia Miscellaneous Medication 1 each 07/24/19 03:00 07/28/19 04:03 Lidocaine Patch Removal TOP 1 each 0300 AZIZA Administration Polyethylene Glycol 17 gm 07/27/19 09:00 07/28/19 09:16 Miralax PO 17 gm DAILY AZIZA Administration Sacubitril/Valsartan 1 tab 07/25/19 21:00 07/28/19 09:18 Entresto 24 Mg-26 Mg Tablet PO 1 tab BID AZIZA Administration Sodium Chloride 10 ml 07/24/19 09:00 07/28/19 09:19 Flush - Normal Saline IVF 10 ml Q12HR AZIZA Administration Tamsulosin HCl 0.4 mg 07/25/19 09:00 07/28/19 09:17 Flomax PO 0.4 mg DAILY AZIZA Administration Ziprasidone 10 mg 07/27/19 16:46 07/28/19 03:52 Geodon IM 10 mg Q2H PRN Administration Agitation - Exam General Appearance: awake alert Eye: anicteric sclera ENT: normocephalic atraumatic Neck: symmetric, no JVD Heart: RRR Respiratory: no wheezes, no ronchi, normal chest expansion Respiratory - other findings: fair air entry bilaterally with some transmitted sound Gastrointestinal: soft, non-distended, normal bowel sounds Extremities: no cyanosis, no edema Neurological: cranial nerve grossly intact, no focal deficits Psychiatric: A&O x 3 Psychiatric - other findings: some memory lapses noted Hosp A/P (1) Hypotension due to drugs Status: Acute (2) Hypernatremia Code(s): E87.0 - HYPEROSMOLALITY AND HYPERNATREMIA Status: Acute (3) Acute metabolic encephalopathy Code(s): G93.41 - METABOLIC ENCEPHALOPATHY Status: Resolved (4) Acute respiratory failure with hypoxia Code(s): J96.01 - ACUTE RESPIRATORY FAILURE WITH HYPOXIA Status: Acute (5) Acute on chronic systolic (congestive) heart failure Code(s): I50.23 - ACUTE ON CHRONIC SYSTOLIC (CONGESTIVE) HEART FAILURE Status : Acute (6) Cardiomyopathy Code(s): I42.9 - CARDIOMYOPATHY, UNSPECIFIED Status: Acute (7) Elevated troponin Code(s): R79.89 - OTHER SPECIFIED ABNORMAL FINDINGS OF BLOOD CHEMISTRY Status : Acute (8) Acute urinary retention Code(s): R33.8 - OTHER RETENTION OF URINE Status: Acute (9) Oropharyngeal dysphagia Code(s): R13.12 - DYSPHAGIA, OROPHARYNGEAL PHASE Status: Acute (10) BPH (benign prostatic hyperplasia) Code(s): N40.0 - BENIGN PROSTATIC HYPERPLASIA WITHOUT LOWER URINRY TRACT SYMP Status: Chronic Qualifiers: Lower urinary tract symptom presence: symptoms absent Qualified Code(s): N40.0 - Benign prostatic hyperplasia without lower urinary tract symptoms (11) Aspiration pneumonia Code(s): J69.0 - PNEUMONITIS DUE TO INHALATION OF FOOD AND VOMIT Status: Suspected Qualifiers: Laterality: unspecified laterality Lung location: unspecified part of lung (12) Ventricular tachyarrhythmia Code(s): I47.2 - VENTRICULAR TACHYCARDIA Status: Acute (13) Dementia Code(s): F03.90 - UNSPECIFIED DEMENTIA WITHOUT BEHAVIORAL DISTURBANCE Status: Acute (14) Leucocytosis Code(s): D72.829 - ELEVATED WHITE BLOOD CELL COUNT, UNSPECIFIED Status: Acute - Plan BP improved following NS bolus. Continue to hold lasix. Hold entresto and coreg also for now due to hypotension. DC D5W due to correction of hyponatremia Continue flomax and finasteride. Continue oxygen supplementation and wean oxygen as tolerated. Start seroquel 25 mg at night due to nightly agitation/insomnia and delirium monitor electrolytes and replete as needed. Appreciate Pulmonary and Cardiology input. Awaiting inpatient rehab placement.
[2019-07-28 13:28] LABS: Actual Bicarbonate (HCO3a) 28.9 mEq/L (22-28); Base Excess (BEa) 4.1 mEq/L (-2.0 to +3.0); CO2 Tension 43.7 mmHg (35.0-45.0); Potassium - ABG Lab 3.53 mmol/L (3.70-5.30); pH, Arterial 7.44 (7.35-7.45)
[2019-07-28 13:29] LABS: O2 Tension (PaO2) 58.5 mmHg (> 70.0)
[2019-07-28 13:30] LABS: ALV-art Gradient 200.595 (0-20); Puncture Site LRA
[2019-07-28] MEDS: Acetaminophen 500 MG TAB PO PRN (13:33)
--- NOTE | 2019-07-28 14:24 | PQF ---
KAMILA STORY JR, OBIMEG [id number] [facility]- B02 [id number] CLINICAL DOCUMENTATION IMPROVEMENT CLARIFICATION FORM: ICD-10 Updated PLEASE DO AN ADDENDUM TO THE PROGRESS NOTE WITH ANY DOCUMENTATION UPDATES OR ADDITIONS AND CARRY THROUGH TO DC SUMMARY. THANK YOU. DATE: 07/28/19 ATTN: Dr. Easley Please exercise your independent, professional judgment in responding to the clarification form. Clinical indicators are provided on the bottom of this form for your review Please check appropriate box(es): [ x ] Sepsis due to: aspiration pneumonia [ ] Severe sepsis with acute organ dysfunction of acute respiratory failure due to aspiration pneumonia [ ] Localized infection without sepsis [ ] Other diagnosis [ ] Unable to determine In addition, please specify: Present on Admission (POA): [ x ] Yes [ ] No [ ] Unable to determine For continuity of documentation, please document condition throughout progress notes and discharge summary. Thank You. CLINICAL INDICATORS - SIGNS / SYMPTOMS / LABS / RESULTS AND LOCATION IN MR Altered mental status--> 07/27 (Obi): "acute metabolic encephalopathy" LAB: 07/23 WBC 16.8, 81% Neutros TEMP 100.8 07/23 VS 07/25 CXR: There is mild groundglass opacity in the perihilar regions and in the right lung base, improved 07/25 (Obi): "acute respiratory failure with hypoxia" 07/24(James): "demented this morning, confused. Apparently, he is having dysphagia, aspirating most of his food" RISK FACTORS / RESULTS AND LOCATION IN MR Infection/Bacteremia--> 07/25(Obi): "Aspiration pnemonia suspected" TREATMENTS / RESULTS AND LOCATION IN MR Telemetry 07/23 orders Daily CBC 07/23 orders IV antibiotics - broad spectrum--> Clindamycin 300 mg IV Q6H 07/23-07/27; 07/23- 07/27 Levaquin 750mg po daily to 07/27 levaquin 500mg po per orders Albuterol/Ipratropium 3ml NEB q6h 07/23 to date per orders Oxygen--> Bipap 07/23; 4L NC 07/24 per orders 07/23 blood culture per orders (This form is maintained as a part of the permanent medical record) 2014 [employer]. All Rights Reserved Isamar Orona RN, BSN, CCDS [email or web address] [phone] [facility]
[2019-07-28] MEDS: Lidocaine 5% Patch TD SCH (16:07)
[2019-07-29] MEDS: Melatonin 3 MG TAB PO PRN (01:06)
[2019-07-29 04:42] LABS: #Eosinphils 0.4 thou/uL (0.0-0.7); #Lymphocytes 1.5 thou/uL (1.20-3.40); #Monocytes 0.8 thou/uL (0.11-0.59); #Neutrophils 13.3 thou/uL (1.40-6.50); %Basophils 0.2 % (0.0-1.0); %Eosinophils 2.7 % (0.0-10.0); %Lymphocytes 9.2 % (21.0-51.0); %Monocytes 4.7 % (0.0-10.0); %Neutrophils 83.2 % (42.0-75.0); Hemoglobin 14.2 g/dL (14.0-18.0); Mean Corpuscular HGB CONC 32.9 g/dL (32.0-36.0); Mean Corpuscular Hemoglobin 32.8 pg (27.0-31.0); Mean Corpuscular Volume 99.6 fL (78.0-98.0); Platelet Count 320 thou/uL (130-400); RBC Distribution Width 12.5 % (11.5-14.5); Red Blood Cell (RBC) Count 4.34 mill/uL (4.70-6.10)
[2019-07-29 05:05] LABS: Anion Gap 11 mmol/L (10-20); BUN (Urea Nitrogen) 33 mg/dL (8.4-25.7); Calc. Creatinine Clearance 52 mL/min (70-130); Calcium 8.6 mg/dL (7.8-10.44); Carbon Dioxide 28 mmol/L (23-31); Chloride 111 mmol/L (98-107); Estimated GFR-MDRD 62; Glucose 107 mg/dL (83-110); Potassium 3.5 mmol/L (3.5-5.1); Sodium 146 mmol/L (136-145)
[2019-07-29] MEDS: Lidocaine Patch Removal 1 EACH TOP SCH (05:14)
[2019-07-29] MEDS ORDERED: OLANZapine 5 MG TAB PO PRN (08:38)
[2019-07-29] MEDS: Tamsulosin HCl 0.4 MG CAP PO SCH (08:51)
[2019-07-29] MEDS: Finasteride 5 MG TAB PO SCH (08:51)
[2019-07-29] MEDS: Polyethylene Glycol 3350 17 GM Packet PO SCH (08:51)
[2019-07-29] MEDS: Enoxaparin Sodium 40 MG/0.4 ML SYRINGE SC SCH (08:51)
[2019-07-29] MEDS: Aspirin 81 mg Enteric Coated Tablet PO SCH (08:51)
[2019-07-29] MEDS: Clopidogrel Bisulfate 75 MG TAB PO SCH (08:51)
[2019-07-29] MEDS: Amiodarone 200 MG TAB PO SCH (08:51)
--- NOTE | 2019-07-29 11:03 | PRG ---
DATE OF SERVICE: 07/29/2019 SUBJECTIVE: No respiratory distress. OBJECTIVE: VITAL SIGNS: Temperature 97, pulse 70, saturations 97% on 3 L, blood pressure 118/58. CHEST: Minimal crackles without any wheezing. CARDIAC: Normal S1, S2. No gallops. ABDOMEN: No masses. IMPRESSION: Respiratory failure secondary to congestive heart failure. I doubt superimposed pneumonia. Cultures so far negative. PT, supportive care, eventually placement. Job ID: [id number]
[2019-07-29 12:01] VITALS: TEMP 97
[2019-07-29 12:50] VITALS: BP 121/69
[2019-07-29] MEDS: Lidocaine 5% Patch TD SCH (15:13)
--- NOTE | 2019-07-30 04:04 | PDOC.EVN ---
Event Note - Event Note Event Note: Discharge summary dictated. #[id number]
--- NOTE | 2019-07-30 04:42 | DIS ---
DATE OF ADMISSION: 07/23/2019 DATE OF DISCHARGE: 07/29/2019 PRIMARY CARE PHYSICIAN: Adam Aranda MD DISCHARGE DIAGNOSES: 1. Acute respiratory failure with hypoxia. 2. Acute on chronic systolic heart failure. 3. Aspiration pneumonia. 4. Sepsis due to aspiration pneumonia. 5. Cardiomyopathy with ejection fraction of 20% to 25%. 6. Elevated troponin. 7. Demand ischemia of the myocardium. 8. Hypernatremia. 9. Acute metabolic encephalopathy. 10. Oropharyngeal dysphagia. 11. Acute urinary retention. 12. Benign prostatic hyperplasia. 13. Ventricular tachyarrhythmia. 14. Hypotension due to drugs. 15. Dementia. 16. Leukocytosis. CONSULTS: 1. Pulmonary and Critical Care. 2. Cardiology. HOSPITAL COURSE: A 78-year-old male with recent acute cardiomyopathy with ejection fraction in 20s, discharged from the hospital few days prior to admission after treatment for acute metabolic encephalopathy, acute kidney injury, and aspiration pneumonia, now readmitted with worsening shortness of breath. Chest x-ray showed bilateral infiltrates and BNP was elevated. The patient also was found to have bilateral leg edema. Impression of acute on chronic CHF and possible aspiration pneumonia with sepsis leading to acute respiratory failure was made and the patient was started on BiPAP and Lasix with some improvement. The patient also was found to have urinary retention, hence Kingston catheter was placed. With diuretic therapy and oxygen treatment, the patient improved and BiPAP was weaned off. Further evaluation showed that the patient had severe dysphagia, hence diet was adjusted appropriately. Hospital course, however, was complicated by development of agitation and aggressiveness necessitating use of Geodon several times. The patient also was found to have hypernatremia, which was felt to be due to free water deficit and was treated with free water by mouth and via IV with resolution. The patient also had an episode of hypotension after antihypertensives and was treated with IV fluids while antihypertensives were held. Antihypertensives were later restarted at a lower dose with good BP. Cardiology consult was obtained due to elevated troponin, CHF, and prior history of ventricular tachycardia. Medications were adjusted appropriately. The patient's lisinopril was discontinued and he was started on Entresto. Also, the patient was started on amiodarone given prior history of ventricular tachyarrhythmia. Due to waxing and waning mental status, Palliative Care consult was obtained and following discussion with family, it was that patient should go to acute rehab for restorative therapy. However, if he did not improve, hospice care option will be declined. PHYSICAL EXAMINATION: VITAL SIGNS: Temperature 97.0, pulse 65, respiratory rate 16, SpO2 of 94 on 3 L nasal cannula, blood pressure is 121/69. GENERAL: Slim, elderly male, in no distress. Afebrile, anicteric, acyanotic. HEENT: Normocephalic, atraumatic. Oral mucosa is moist. CARDIOVASCULAR: Regular rhythm and rate with normal heart sounds 1 and 2. RESPIRATORY: Good air entry bilateral with some transmitted breath sounds. No obvious crackle or rhonchi was appreciated. GI: Full, soft, nontender, nondistended with normal bowel sounds. EXTREMITIES: Grossly normal looking, but thin. No edema or erythema. 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 Memory lapse is noted. DISCHARGE CONDITION: Improved. DISCHARGE DISPOSITION: [facility]. DISCHARGE MEDICATIONS: 1. Donepezil 5 mg p.o. daily. 2. eye drops. 3. Omeprazole 40 mg p.o. daily. 4. Sertraline 50 mg p.o. daily. 5. Clindamycin 300 mg q.6 for four days. 6. Acetaminophen 1000 mg q.6 p.r.n. for pain. 7. Amiodarone 400 mg daily for one month and 200 mg then after. 8. Aspirin 81 mg p.o. daily. 9. Carvedilol 3.125 mg p.o. b.i.d. 10. Plavix 75 mg p.o. daily. 11. Lovenox 40 mg subcutaneously daily. 12. Finasteride 5 mg p.o. daily. 13. DuoNeb 3 mL q.6 p.r.n. 14. Lidocaine patch one daily. 15. Melatonin 6 mg p.o. daily at bedtime. 16. Zyprexa 5 mg p.o. daily at bedtime p.r.n. for agitation. 17. MiraLAX 17 g p.o. daily. 18. Entresto 24/ one tablet p.o. b.i.d. Hold for systolic blood pressure less than 105. 19. Flomax 0.4 mg p.o. daily. FOLLOWUP: 1. With PCP in 7 days. 2. With sleeve setter safety stitch, Dr. Abbott in 14 days. The patient is to have a voiding trial in 5 to 7 days. If he fails voiding trial, he should be referred to urologist on discharge. Discharge took more than 39 minutes. Job ID: [id number]
== END 2019-07-29 15:15 | DRG 177 ==
LOC: ERS 02:49 → IMCU/EMU 04:50 → 2NO 07-27 21:11
PROVIDERS: ADMIT Internal Medicine; ATTEND Internal Medicine
PROC: 5A09457 Assistance with Respiratory Ventilation, 24-96 Consecutive Hours, Continuous Positive Airway Pressure (ICD-10-PCS; principal; 2019-07-23)
PROC: 3E02340 Introduction of Influenza Vaccine into Muscle, Percutaneous Approach (ICD-10-PCS; 2019-07-24)
DX: J69.0 Pneumonitis due to inhalation of food and vomit (principal); J96.01 Acute respiratory failure with hypoxia; I50.23 Acute on chronic systolic (congestive) heart failure; G93.41 Metabolic encephalopathy; A41.9 Sepsis, unspecified organism; I42.0 Dilated cardiomyopathy; I47.2 Ventricular tachycardia; E87.0 Hyperosmolality and hypernatremia; I24.8 Other forms of acute ischemic heart disease; Z66 Do not resuscitate; N40.0 Benign prostatic hyperplasia without lower urinary tract symptoms; F03.90 Unspecified dementia, unspecified severity, without behavioral disturbance, psychotic disturbance, mood disturbance, and anxiety; K21.9 Gastro-esophageal reflux disease without esophagitis; I11.0 Hypertensive heart disease with heart failure; E78.5 Hyperlipidemia, unspecified; F32.9 Major depressive disorder, single episode, unspecified; R13.12 Dysphagia, oropharyngeal phase; R33.8 Other retention of urine; I95.2 Hypotension due to drugs; T50.905A Adverse effect of unspecified drugs, medicaments and biological substances, initial encounter; Z86.73 Personal history of transient ischemic attack (TIA), and cerebral infarction without residual deficits; Z88.0 Allergy status to penicillin; Z79.84 Long term (current) use of oral hypoglycemic drugs; Z79.82 Long term (current) use of aspirin; Z79.899 Other long term (current) drug therapy; Z98.52 Vasectomy status; I25.2 Old myocardial infarction; Z23 Encounter for immunization
CPT/HCPCS: 36415; 51701; 71045; 71046; 71275; 80048; 80053; 81003; 82550; 82553; 82805; 83605; 83735; 83880; 84145; 84484; 85025; 87040; 87086; 87804; 93005; 94640; 94660; 94760; 96374; J1200; J1650; J1885; J1940; J1956; J2060; J2270; J2920; J3486; J3490; J7620; Q9967

== ENCOUNTER 2021-05-20 08:31 | Day surgery (SDC) | payer MEDICARE, BC ==
[2021-05-16 11:35] VITALS: BMI 23.6
[2021-05-20] MEDS ORDERED: Vancomycin HCl 500 MG VIAL ONE (09:47)
[2021-05-20] MEDS ORDERED: Gentamicin 80 MG/2 ML VIAL ONE (11:17)
[2021-05-20] MEDS ORDERED: Lidocaine 1% (PF) 30 ML VIAL ONE (11:17)
[2021-05-20] MEDS ORDERED: Propofol 500 MG/50 ML VIAL ONE (12:03)
[2021-05-20] MEDS ORDERED: Midazolam HCl 2 mg/2 ml Vial ONE (12:03)
[2021-05-20] MEDS ORDERED: Fentanyl 100 MCG/2 ML VIAL ONE (12:03)
[2021-05-20] MEDS ORDERED: Phenylephrine 10 MG/ML VIAL ONE (12:03)
[2021-05-20] MEDS ORDERED: Ketamine 50 MG/ML (10ML VIAL) ONE (12:03)
[2021-05-20] MEDS ORDERED: Glycopyrrolate 0.2 MG/ML 5 ML SYRINGE ONE (12:16)
[2021-05-20] MEDS ORDERED: Clindamycin/D5W 900 mg/50 ml Premix Bag ONE (13:48)
== END 2021-05-20 18:54 | disposition home or self-care (01) ==
LOC: CCL 08:31
PROVIDERS: ATTEND Internal Medicine Cardiovascular Disease
PROC: 0JH607Z Insertion of Cardiac Resynchronization Pacemaker Pulse Generator into Chest Subcutaneous Tissue and Fascia, Open Approach (ICD-10-PCS; principal; 2021-05-20)
PROC: 02HL3JZ Insertion of Pacemaker Lead into Left Ventricle, Percutaneous Approach (ICD-10-PCS; 2021-05-20)
PROC: 02H63JZ Insertion of Pacemaker Lead into Right Atrium, Percutaneous Approach (ICD-10-PCS; 2021-05-20)
PROC: 02HK3JZ Insertion of Pacemaker Lead into Right Ventricle, Percutaneous Approach (ICD-10-PCS; 2021-05-20)
DX: I11.0 Hypertensive heart disease with heart failure (principal); I50.22 Chronic systolic (congestive) heart failure; I44.7 Left bundle-branch block, unspecified; I25.5 Ischemic cardiomyopathy; I49.5 Sick sinus syndrome; R00.1 Bradycardia, unspecified; I48.0 Paroxysmal atrial fibrillation; I25.10 Atherosclerotic heart disease of native coronary artery without angina pectoris; I25.2 Old myocardial infarction; F03.90 Unspecified dementia, unspecified severity, without behavioral disturbance, psychotic disturbance, mood disturbance, and anxiety; Z87.891 Personal history of nicotine dependence; Z79.02 Long term (current) use of antithrombotics/antiplatelets; Z79.82 Long term (current) use of aspirin; Z79.899 Other long term (current) drug therapy; Z88.0 Allergy status to penicillin; Z88.8 Allergy status to other drugs, medicaments and biological substances; Z95.1 Presence of aortocoronary bypass graft
CPT/HCPCS: 33208; 33225; 36005; 71045; 75820; 93005; 93010; C1769; C1898; C1900; C2621; J1580; J2001; J2250; J2370; J2704; J3010; J3370; J3490

== ENCOUNTER 2021-12-18 14:56 | Outpatient (CLI) | payer MEDICARE, BC ==
[2021-12-18 15:40] LABS: Hemoglobin 15.1 g/dL (13.5-17.5); Mean Corpuscular HGB CONC 32.2 g/dL (32.0-36.0); Mean Corpuscular Hemoglobin 31.6 pg (27.0-33.0); Mean Corpuscular Volume 98.1 fl (81.2-95.1); Mean Platelet Volume 9.9 fl (7.4-10.4); Platelet Count 249 10x3/uL (150-450); RBC Distribution Width 14.6 % (11.5-14.5); Red Blood Cell (RBC) Count 4.78 10x6/uL (4.32-5.72); White Blood Cell (WBC) Count 9.6 10x3/uL (3.5-10.5)
[2021-12-18 15:53] LABS: PTT 26.6 sec (22.0-33.0); Prothrombin Time 10.4 sec (9.5-12.1)
[2021-12-18 15:58] LABS: Anion Gap 14 mmol/L (10-20); BUN (Urea Nitrogen) 19 mg/dL (8.4-25.7); Calc. Creatinine Clearance 0 mL/min (70-130); Calcium 9.5 mg/dL (7.8-10.44); Carbon Dioxide 27 mmol/L (23-31); Glucose 106 mg/dL (83-110); Potassium 4.5 mmol/L (3.5-5.1)
[2021-12-18 16:01] LABS: Chloride 106 mmol/L (98-107); Sodium 142 mmol/L (136-145)
[2021-12-18 23:40] LABS: SARS-CoV-2 PCR by NAA Not Detected (NotDetected)
== END 2021-12-18 14:57 | disposition home or self-care (01) ==
LOC: LABBT 14:56
PROVIDERS: ATTEND Internal Medicine Cardiovascular Disease
DX: Z01.812 Encounter for preprocedural laboratory examination (principal); T82.110A Breakdown (mechanical) of cardiac electrode, initial encounter; I50.22 Chronic systolic (congestive) heart failure; Z20.822 Contact with and (suspected) exposure to COVID-19
CPT/HCPCS: 80048; 85027; 85610; 85730; U0003; U0005